=== PATIENT | male | born 1985 | race Hispanic/Latino ===

== ENCOUNTER 2018-10-08 18:52 | Inpatient (IN) | payer OTHER | END 2018-10-14 09:30 | disposition left against medical advice (07) | LOC: EDH 18:52 → 2CH 10-09 11:26 → 3DH 10-12 11:46 → EDHIP 18:53 | DX: E11.10 Type 2 diabetes mellitus with ketoacidosis without coma (principal); F17.200 Nicotine dependence, unspecified, uncomplicated ==

== ENCOUNTER 2020-08-10 06:30 | Inpatient (IN) | payer OTHER ==
[~2020-08-10] VITALS: Ht 170.2 cm; Wt 103.4 kg
[~2020-08-10 06:30] MED LIST: ESOM40CA PO
[2020-08-10 06:56] LABS: BASOPHILS % (AUTO) 0.2 % (0.0-5.0); EOSINOPHILS % (AUTO) 0.1 % (0.0-8.0); HEMATOCRIT 38.9 % (42-54); LYMPHOCYTES % (AUTO) 3.4 % (21.0-51.0); MEAN CORPUSCULAR HEMOGLOBIN 28.3 pg (27.0-33.0); MEAN CORPUSCULAR HGB CONC 34.7 g/dL (32.0-36.0); MEAN CORPUSCULAR VOLUME 81.6 fL (79-99); MONOCYTES % (AUTO) 2.8 % (3.0-13.0); NEUTROPHILS % (AUTO) 93.1 % (40.0-77.0); PLATELET COUNT (AUTO) 277 K/uL (130-400); RED BLOOD CELL COUNT(AUTO) 4.77 MIL/uL (4.50-6.20); WHITE BLOOD COUNT (AUTO) 16.3 K/uL (4.8-10.8)
[2020-08-10] MEDS ORDERED: METOCLOPRAMIDE 10 MG/2 ML VIAL ONE (07:05)
[2020-08-10 07:09] LABS: INR 1.13 (0.85-1.15)
[2020-08-10 07:10] LABS: PARTIAL THROMBOPLASTIN TIME 27.4 SEC (26.3-35.5)
[2020-08-10 07:12] LABS: ALBUMIN 2.7 g/dL (3.5-5.0); BILIRUBIN,TOTAL 0.3 mg/dL (0.2-1.0); CREATININE 2.1 mg/dL (0.5-1.5); POTASSIUM 4.1 mmol/L (3.5-5.1); TOTAL PROTEIN, SERUM 7.1 g/dL (6.0-8.3)
[2020-08-10] MEDS ORDERED: CEFTRIAXONE SODIUM 1 GM ONE (07:37)
[2020-08-10 07:58] LABS: CHOLESTEROL 308 mg/dL (<200); HDL CHOLESTEROL 76 mg/dL (29-71); LDL DIRECT 202 mg/dL (0-99); TRIGLYCERIDES 165 mg/dL (30-200)
[2020-08-10] MEDS: CEFTRIAXONE SODIUM 1 GM IV SCH (08:45)
[2020-08-10] MEDS ORDERED: SODIUM CHLORIDE 0.9% 1000ML 1,000 ML IV SCH (08:45)
[2020-08-10] MEDS ORDERED: ACETAMINOPHEN 325 MG TAB PO PRN ×2 (08:45)
[2020-08-10 08:56] LABS: HEMOGLOBIN A1C 7.4 % (4.0-6.0)
[2020-08-10] MEDS: ENOXAPARIN SODIUM 30 MG/0.3 ML SQ SCH (09:00)
[2020-08-10] MEDS: FAMOTIDINE/PF 20 MG/2 ML VIAL IV SCH ×2 (09:00→21:00)
[2020-08-10 09:25] LABS: APPEARANCE,URINE Clear (CLEAR); BILIRUBIN,URINE Negative (NEGATIVE); COLOR,URINE Yellow (YELLOW); GLUCOSE, URINE (UA) 500 mg/dL (NEGATIVE); KETONES,URINE 15 mg/dL (NEGATIVE); LEUKOCYTE ESTERASE ,URINE Negative (NEGATIVE); NITRATE,URINE Negative (NEGATIVE); OCCULT BLOOD,URINE Moderate (NEGATIVE); PH,URINE 6.5 (5.0-8.0); PROTEIN,URINE >=1000 mg/dL (NEGATIVE); UROBILINOGEN,URINE 0.2 mg/dL (0.2-1.0)
[2020-08-10 09:33] LABS: AMPHET/METH SCREEN,URINE NEGATIVE (NEGATIVE); BARBITURATE SCREEN, URINE NEGATIVE (NEGATIVE); BENZODIAZEPINES SCREEN,URINE NEGATIVE (NEGATIVE); CANNABINOID SCREEN,URINE POSITIVE (NEGATIVE); COCAINE SCREEN,URINE NEGATIVE (NEGATIVE); OPIATE SCREEN,URINE NEGATIVE (NEGATIVE); PHENCYCLIDINE SCREEN,URINE NEGATIVE (NEGATIVE)
[2020-08-10] MEDS ORDERED: METRONIDAZOLE 500MG/100ML BAG 100 ML ONE (09:39)
[2020-08-10] MEDS ORDERED: ENOXAPARIN SODIUM 30 MG/0.3 ML SQ ONE (09:39)
[2020-08-10] MEDS ORDERED: FAMOTIDINE/PF 20 MG/2 ML VIAL IV ONE ×2 (09:40→20:26)
[2020-08-10] MEDS ORDERED: SODIUM CHLORIDE 0.9% 1000ML 1,000 ML IV ONE ×3 (09:40→22:46)
[2020-08-10] MEDS ORDERED: MORPHINE SULFATE 2 MG/ML 1ML SYG ONE ×3 (09:40→22:27)
[2020-08-10 10:24] LABS: BACTERIA,URINE Few /HPF (None Seen); MUCUS,URINE Few LPF (None Seen); WBC,URINE None Seen /HPF (0-1)
[2020-08-10] MEDS: INSULIN HUMULIN R 100 UNIT/ML 3ML SQ SCH ×2 (12:00→18:00)
[2020-08-10] MEDS: METRONIDAZOLE 500MG/100ML BAG 100 ML IV SCH (16:45)
[2020-08-10] MEDS ORDERED: ONDANSETRON HCL 4 MG/2 ML VIAL ONE ×2 (17:37→22:27)
[2020-08-10] MEDS: LACTATED RINGERS 1000ML 1,000 ML IV SCH (19:00)
[2020-08-10 19:28] LABS: CREATININE 2.1 mg/dL (0.5-1.5)
[2020-08-10] MEDS: INSULIN GLARGINE 100 UNITS/ML 10 ML VIAL SQ SCH (21:00)
[2020-08-11] VITALS (7 sets, daily range): BP systolic 168–202; BP diastolic 100–126
[2020-08-11] MEDS ORDERED: PHARMACY COMMUNICATION MISC PRN (00:30)
[2020-08-11] MEDS ORDERED: CHLORDIAZEPOXIDE HCL 25 MG CAP PO PRN ×2 (00:30)
[2020-08-11] MEDS ORDERED: LORAZEPAM 2 MG/ML 1 ML VIAL IVP PRN ×2 (00:30)
[2020-08-11] MEDS ORDERED: LORAZEPAM 2 MG/ML 1 ML VIAL ONE (00:32)
[2020-08-11] MEDS: METRONIDAZOLE 500MG/100ML BAG 100 ML IV SCH ×3 (00:45→18:05)
[2020-08-11] MEDS: LACTATED RINGERS 1000ML 1,000 ML IV SCH (04:11)
[2020-08-11] MEDS: INSULIN HUMULIN R 100 UNIT/ML 3ML SQ SCH ×5 (05:33→21:00)
[2020-08-11 06:31] LABS: BASOPHILS % (AUTO) 0.2 % (0.0-5.0); EOSINOPHILS % (AUTO) 0.1 % (0.0-8.0); LYMPHOCYTES % (AUTO) 7.9 % (21.0-51.0); MEAN CORPUSCULAR HEMOGLOBIN 28.2 pg (27.0-33.0); MEAN CORPUSCULAR HGB CONC 33.7 g/dL (32.0-36.0); MEAN CORPUSCULAR VOLUME 83.5 fL (79-99); MONOCYTES % (AUTO) 6.7 % (3.0-13.0); NEUTROPHILS % (AUTO) 84.5 % (40.0-77.0); PLATELET COUNT (AUTO) 234 K/uL (130-400); RED BLOOD CELL COUNT(AUTO) 4.19 MIL/uL (4.50-6.20); RED CELL DISTRIBUTION WIDTH 13.2 % (11.0-15.5); WHITE BLOOD COUNT (AUTO) 12.2 K/uL (4.8-10.8)
[2020-08-11 06:51] LABS: ALANINE AMINOTRANSFERASE 15 U/L (12-78); ALCOHOL, BLOOD < 3 mg/dL (0-10); ASPARTATE AMINOTRANSFERASE 20 U/L (10-37); BILIRUBIN,TOTAL 0.1 mg/dL (0.2-1.0); CARBON DIOXIDE 26 mmol/L (21-32); CHLORIDE 111 mmol/L (101-111); GLOMERULAR FILTR. RATE CALC 41 mL/min (>60); GLUCOSE,RANDOM 161 mg/dL (70-105); PHOSPHORUS 3.9 mg/dL (2.5-4.9); POTASSIUM 3.9 mmol/L (3.5-5.1); SODIUM SERUM 146 mmol/L (136-145); TOTAL PROTEIN, SERUM 5.6 g/dL (6.0-8.3); UREA NITROGEN, BLOOD 27 mg/dL (7-18)
[2020-08-11] MEDS ORDERED: METOPROLOL TARTRATE 50 MG TAB PO SCH (09:15)
[2020-08-11] MEDS: CEFTRIAXONE SODIUM 1 GM IV SCH (10:06)
[2020-08-11] MEDS: MULTIVITAMIN TABLET PO SCH (10:08)
[2020-08-11] MEDS: THIAMINE HCL 100 MG/ML 2ML VIAL IM SCH (10:08)
[2020-08-11] MEDS: FOLIC ACID 1 MG TABLET PO SCH (10:13)
[2020-08-11] MEDS: ENOXAPARIN SODIUM 30 MG/0.3 ML SQ SCH (10:19)
[2020-08-11] MEDS: FAMOTIDINE/PF 20 MG/2 ML VIAL IV SCH ×2 (10:20→21:04)
[2020-08-11] MEDS: METOPROLOL TARTRATE 50 MG TAB PO SCH ×2 (10:22→21:04)
[2020-08-11] MEDS ORDERED: HYDRALAZINE HCL 20 MG/ML VIAL IV SCH (12:45)
[2020-08-11] MEDS ORDERED: AMLODIPINE BESYLATE 5 MG TAB PO SCH (18:22)
[2020-08-11] MEDS: MORPHINE SULFATE 2 MG/ML 1ML SYG IV PRN ×2 (18:28→23:05)
[2020-08-11] MEDS: ONDANSETRON HCL 4 MG/2 ML VIAL IV PRN (18:52)
[2020-08-11] MEDS ORDERED: AMLO-258 PO (21:02)
[2020-08-11] MEDS ORDERED: GLIP10TA9 PO (21:02)
[2020-08-11] MEDS: INSULIN GLARGINE 100 UNITS/ML 10 ML VIAL SQ SCH (21:09)
[2020-08-11] MEDS ORDERED: LABETALOL HCL 5 MG/ML 20ML VIAL IV ONE (23:02)
[2020-08-12] VITALS (8 sets, daily range): BP systolic 132–198; BP diastolic 82–114
[2020-08-12] MEDS: METRONIDAZOLE 500MG/100ML BAG 100 ML IV SCH ×4 (00:19→23:40)
[2020-08-12 03:52] LABS: HEMATOCRIT 33.7 % (42-54); MEAN CORPUSCULAR HEMOGLOBIN 28.2 pg (27.0-33.0); MEAN CORPUSCULAR HGB CONC 34.1 g/dL (32.0-36.0); MEAN CORPUSCULAR VOLUME 82.6 fL (79-99); PLATELET COUNT (AUTO) 228 K/uL (130-400); RED BLOOD CELL COUNT(AUTO) 4.08 MIL/uL (4.50-6.20); RED CELL DISTRIBUTION WIDTH 12.9 % (11.0-15.5); WHITE BLOOD COUNT (AUTO) 11.8 K/uL (4.8-10.8)
[2020-08-12 04:19] LABS: CREATININE 2.1 mg/dL (0.5-1.5); PHOSPHORUS 4.5 mg/dL (2.5-4.9); POTASSIUM 3.3 mmol/L (3.5-5.1)
[2020-08-12] MEDS: LABETALOL 20 MG/4 ML DISP.SYRIN IV PRN ×2 (04:25→17:14)
[2020-08-12 04:38] LABS: LYMPHOCYTES % (MANUAL) 3 % (22-44); MONOCYTES % (MANUAL) 4 % (2-9); REACTIVE LYMPHOCYTES 1 % (0-0); SEGMENTED NEUTROPHILS % 92 % (40-70)
[2020-08-12 04:39] LABS: MAN.DIFF COMMENT-IMPRESSION MANUAL DIFFERENTIAL
[2020-08-12 04:41] LABS: PROTEIN,URINE RANDOM 1080.7 mg/dL (0-11.9)
[2020-08-12] MEDS ORDERED: POTASSIUM CHLORIDE 20 MEQ ERTAB PO ONE (06:59)
[2020-08-12] MEDS ORDERED: POTASSIUM CHLORIDE 20 MEQ ERTAB PO PRN (07:15)
[2020-08-12] MEDS ORDERED: POTASSIUM CHLORIDE 10% ELIXIR 20 MEQ/15 ML UDCUP PO PRN (07:15)
[2020-08-12] MEDS ORDERED: LIDOCAINE HCL-MPF 1% 2ML VIAL IV PRN (07:15)
[2020-08-12] MEDS ORDERED: POTASSIUM CHLORIDE 20MEQ/100ML 100 ML IV PRN (07:15)
[2020-08-12] MEDS: CEFTRIAXONE SODIUM 1 GM IVP SCH ×3 (07:27→18:44)
[2020-08-12] MEDS: INSULIN HUMULIN R 100 UNIT/ML 3ML SQ SCH ×4 (07:30→21:43)
[2020-08-12] MEDS: FOLIC ACID 1 MG TABLET PO SCH (08:51)
[2020-08-12] MEDS: ENOXAPARIN SODIUM 30 MG/0.3 ML SQ SCH (08:51)
[2020-08-12] MEDS: MULTIVITAMIN TABLET PO SCH (08:51)
[2020-08-12] MEDS: THIAMINE HCL 100 MG/ML 2ML VIAL IM SCH (08:52)
[2020-08-12] MEDS ORDERED: AMLODIPINE BESYLATE 5 MG TAB PO SCH (09:00)
[2020-08-12] MEDS ORDERED: METOPROLOL TARTRATE 50 MG TAB PO SCH (09:00)
[2020-08-12] MEDS: FAMOTIDINE/PF 20 MG/2 ML VIAL IV SCH ×2 (09:25→21:27)
[2020-08-12] MEDS: AMLODIPINE BESYLATE 5 MG TAB PO SCH (09:26)
[2020-08-12] MEDS: HYDROMORPHONE HCL 2 MG TAB PO PRN ×2 (10:00→21:39)
[2020-08-12] MEDS ORDERED: INSLAN SQ ×2 (12:13)
[2020-08-12] MEDS: HYDRALAZINE HCL 25 MG TABLET PO SCH ×3 (14:24→23:41)
[2020-08-12 20:28] LABS: MYOGLOBIN 377 ng/mL (10-92); TROPONIN I < 0.04 ng/mL (0.00-0.06)
[2020-08-12 20:38] LABS: CREATINE KINASE, TOTAL 602 U/L (21-232)
[2020-08-12] MEDS ORDERED: LABETALOL HCL 5 MG/ML 20ML VIAL IV ONE (21:12)
[2020-08-12] MEDS: INSULIN GLARGINE 100 UNITS/ML 10 ML VIAL SQ SCH (21:36)
[2020-08-12] MEDS: METOPROLOL TARTRATE 50 MG TAB PO SCH (21:38)
[2020-08-12] MEDS ORDERED: HYDROMORPHONE HCL 2 MG/ML VIAL IVP PRN (23:15)
[2020-08-12] MEDS: SODIUM CHLORIDE 0.9% 1000ML 1,000 ML IV SCH (23:41)
[2020-08-12] MEDS: HYDROMORPHONE HCL 2 MG/ML VIAL IVP PRN (23:52)
[2020-08-13] MEDS: ONDANSETRON HCL 4 MG/2 ML VIAL IV PRN ×2 (01:59→23:34)
[2020-08-13] MEDS: LABETALOL 20 MG/4 ML DISP.SYRIN IV PRN ×4 (01:59→23:34)
[2020-08-13 02:45] LABS: MYOGLOBIN 340 ng/mL (10-92); TROPONIN I < 0.04 ng/mL (0.00-0.06)
[2020-08-13 02:46] LABS: CREATINE KINASE, TOTAL 456 U/L (21-232)
[2020-08-13 04:00] VITALS: BP 163/95
[2020-08-13] MEDS ORDERED: PROMETHAZINE HCL 25 MG/ML 1ML AMPULE IM SCH (07:00)
[2020-08-13] MEDS: CEFTRIAXONE SODIUM 1 GM IVP SCH ×2 (07:07→20:30)
[2020-08-13] MEDS: INSULIN HUMULIN R 100 UNIT/ML 3ML SQ SCH ×4 (07:08→20:30)
[2020-08-13] MEDS: HYDRALAZINE HCL 25 MG TABLET PO SCH ×4 (07:17→23:30)
[2020-08-13 08:10] VITALS: BP 183/113
[2020-08-13 08:20] LABS: MEAN CORPUSCULAR HEMOGLOBIN 28.5 pg (27.0-33.0); MEAN CORPUSCULAR HGB CONC 34.6 g/dL (32.0-36.0); MEAN CORPUSCULAR VOLUME 82.4 fL (79-99); RED BLOOD CELL COUNT(AUTO) 4.25 MIL/uL (4.50-6.20); RED CELL DISTRIBUTION WIDTH 12.7 % (11.0-15.5); WHITE BLOOD COUNT (AUTO) 11.1 K/uL (4.8-10.8)
[2020-08-13] MEDS: METRONIDAZOLE 500MG/100ML BAG 100 ML IV SCH ×3 (08:47→23:29)
[2020-08-13] MEDS: FOLIC ACID 1 MG TABLET PO SCH (08:47)
[2020-08-13] MEDS: MULTIVITAMIN TABLET PO SCH (08:47)
[2020-08-13] MEDS: SODIUM CHLORIDE 0.9% 1000ML 1,000 ML IV SCH ×3 (08:47→23:15)
[2020-08-13] MEDS: THIAMINE HCL 100 MG/ML 2ML VIAL IM SCH (08:47)
[2020-08-13] MEDS: METOPROLOL TARTRATE 50 MG TAB PO SCH ×2 (08:48→20:29)
[2020-08-13] MEDS: AMLODIPINE BESYLATE 5 MG TAB PO SCH (08:48)
[2020-08-13] MEDS: ENOXAPARIN SODIUM 30 MG/0.3 ML SQ SCH (08:49)
[2020-08-13 08:52] LABS: MYOGLOBIN 561 ng/mL (10-92); TROPONIN I < 0.04 ng/mL (0.00-0.06)
[2020-08-13] MEDS: FAMOTIDINE/PF 20 MG/2 ML VIAL IV SCH ×2 (08:52→20:29)
[2020-08-13 09:29] LABS: CREATINE KINASE, TOTAL 468 U/L (21-232)
[2020-08-13 09:36] LABS: CREATININE 1.8 mg/dL (0.5-1.5); POTASSIUM 3.5 mmol/L (3.5-5.1)
[2020-08-13 09:41] LABS: ALBUMIN 1.9 g/dL (3.5-5.0); BILIRUBIN,TOTAL 0.1 mg/dL (0.2-1.0); TOTAL PROTEIN, SERUM 5.4 g/dL (6.0-8.3)
[2020-08-13 11:43] VITALS: BP 157/94
[2020-08-13 16:17] VITALS: BP 167/106
[2020-08-13 19:53] VITALS: BP 172/109
[2020-08-13] MEDS: INSULIN GLARGINE 100 UNITS/ML 10 ML VIAL SQ SCH (20:30)
[2020-08-13] MEDS ORDERED: HYDROMORPHONE 1 MG/1 ML AMP ONE (20:48)
[2020-08-13] MEDS: HYDROMORPHONE HCL 2 MG/ML VIAL IVP PRN (20:51)
[2020-08-13 23:17] VITALS: BP 167/102
[2020-08-14 04:00] VITALS: BP 129/83
[2020-08-14] MEDS: CEFTRIAXONE SODIUM 1 GM IVP SCH (05:21)
[2020-08-14] MEDS: HYDRALAZINE HCL 25 MG TABLET PO SCH (05:21)
[2020-08-14] MEDS: INSULIN HUMULIN R 100 UNIT/ML 3ML SQ SCH (05:24)
[2020-08-14] MEDS: ONDANSETRON HCL 4 MG/2 ML VIAL IV PRN (05:44)
[2020-08-14] MEDS: SODIUM CHLORIDE 0.9% 1000ML 1,000 ML IV SCH (05:45)
[2020-08-14 08:09] VITALS: BP 184/101
[2020-08-14] MEDS ORDERED: LORAZEPAM 1 MG TABLET PO PRN (10:00)
[2020-08-14] MEDS ORDERED: LORAZEPAM 1 MG TABLET PO ONE (10:00)
[2020-08-14 10:25] LABS: CRP QUANTITATIVE 4.8 mg/L (0.00-9.0)
[2020-08-14] MEDS ORDERED: METOCLOPRAMIDE 10 MG/2 ML VIAL IVP SCH (21:00)
== END 2020-08-14 10:30 | disposition left against medical advice (07) | DRG 393 ==
LOC: EDH 06:30 → EDHIP 06:31 → 3CH 08-11 00:36
PROVIDERS: ADMIT Hospitalist; ATTEND Hospitalist
DX: K35.80 Unspecified acute appendicitis (principal); K85.90 Acute pancreatitis without necrosis or infection, unspecified; K86.1 Other chronic pancreatitis; N17.9 Acute kidney failure, unspecified; E86.0 Dehydration; Z20.822 Contact with and (suspected) exposure to COVID-19; F12.90 Cannabis use, unspecified, uncomplicated; I10 Essential (primary) hypertension; E11.21 Type 2 diabetes mellitus with diabetic nephropathy; R53.81 Other malaise; Z79.84 Long term (current) use of oral hypoglycemic drugs; Z83.3 Family history of diabetes mellitus; Z82.49 Family history of ischemic heart disease and other diseases of the circulatory system
CPT/HCPCS: 36415; 71045; 74176; 76770; 80048; 80053; 80061; 80305; 81001; 82550; 82570; 82948; 83036; 83690; 83735; 83874; 84100; 84156; 84484; 85025; 85027; 85610; 85651; 85730; 86140; 87426; 93005; G0378; J0360; J0696; J1170; J1650; J1815; J2060; J2405; J2765; J3411; J3490; J7030; J7120; U0003

== ENCOUNTER 2020-08-15 10:28 | Emergency (ER) | payer OTHER ==
[~2020-08-15 10:28] MED LIST changes: +AMLO-258 PO; +GLIP10TA9 PO; +INSLAN SQ
[2020-08-15] MEDS ORDERED: ONDANSETRON HCL 4 MG/2 ML VIAL ONE (11:21)
[2020-08-15] MEDS ORDERED: SODIUM CHLORIDE 0.9% 1000ML 1,000 ML IV ONE ×2 (11:21→11:23)
[2020-08-15] MEDS ORDERED: HYDROMORPHONE 1 MG/1 ML AMP ONE ×2 (11:22→17:02)
[2020-08-15 11:24] LABS: BASOPHILS % (AUTO) 0.6 % (0.0-5.0); EOSINOPHILS % (AUTO) 0.6 % (0.0-8.0); HEMATOCRIT 38.7 % (42-54); LYMPHOCYTES % (AUTO) 10.8 % (21.0-51.0); MEAN CORPUSCULAR HEMOGLOBIN 28.3 pg (27.0-33.0); MEAN CORPUSCULAR HGB CONC 35.1 g/dL (32.0-36.0); MEAN CORPUSCULAR VOLUME 80.6 fL (79-99); MONOCYTES % (AUTO) 6.3 % (3.0-13.0); NEUTROPHILS % (AUTO) 81.2 % (40.0-77.0); PLATELET COUNT (AUTO) 236 K/uL (130-400); RED CELL DISTRIBUTION WIDTH 12.5 % (11.0-15.5); WHITE BLOOD COUNT (AUTO) 10.8 K/uL (4.8-10.8)
[2020-08-15 11:32] LABS: CREATININE 1.7 mg/dL (0.5-1.5); POTASSIUM 3.6 mmol/L (3.5-5.1)
[2020-08-15 11:36] LABS: ALBUMIN 2.1 g/dL (3.5-5.0); BILIRUBIN,TOTAL 0.3 mg/dL (0.2-1.0); TOTAL PROTEIN, SERUM 5.7 g/dL (6.0-8.3)
[2020-08-15] MEDS ORDERED: METOCLOPRAMIDE 10 MG/2 ML VIAL ONE (12:40)
[2020-08-15] MEDS ORDERED: LABETALOL 20 MG/4 ML DISP.SYRIN IV ONE (12:41)
[2020-08-15 15:18] LABS: APPEARANCE,URINE Clear (CLEAR); BILIRUBIN,URINE Negative (NEGATIVE); COLOR,URINE Yellow (YELLOW); GLUCOSE, URINE (UA) TRACE mg/dL (NEGATIVE); KETONES,URINE 15 mg/dL (NEGATIVE); LEUKOCYTE ESTERASE ,URINE Negative (NEGATIVE); NITRATE,URINE Negative (NEGATIVE); OCCULT BLOOD,URINE Small (NEGATIVE); PH,URINE 5.5 (5.0-8.0); PROTEIN,URINE >=1000 mg/dL (NEGATIVE); UROBILINOGEN,URINE 0.2 mg/dL (0.2-1.0)
[2020-08-15 15:39] LABS: AMPHET/METH SCREEN,URINE NEGATIVE (NEGATIVE); BARBITURATE SCREEN, URINE NEGATIVE (NEGATIVE); BENZODIAZEPINES SCREEN,URINE NEGATIVE (NEGATIVE); CANNABINOID SCREEN,URINE POSITIVE (NEGATIVE); COCAINE SCREEN,URINE NEGATIVE (NEGATIVE); OPIATE SCREEN,URINE NEGATIVE (NEGATIVE); PHENCYCLIDINE SCREEN,URINE NEGATIVE (NEGATIVE)
[2020-08-15 16:06] LABS: BACTERIA,URINE Few /HPF (None Seen); MUCUS,URINE Few LPF (None Seen); SQUAMOUS EPITHELIAL CELL,UR Moderate /HPF (0-2)
== END 2020-08-15 17:35 | disposition home or self-care (01) ==
LOC: EDH 10:28
DX: R11.10 Vomiting, unspecified (principal); K80.80 Other cholelithiasis without obstruction; E11.9 Type 2 diabetes mellitus without complications
CPT/HCPCS: 36415; 74176; 76705; 80053; 80305; 81001; 83690; 85025; 96361; 96374; 96375; 96376; 99285; J1170 ×2; J2405; J2765; J7030 ×2

== ENCOUNTER 2020-08-16 14:51 | Emergency (ER) | payer SELFPAY ==
[~2020-08-16 14:51] MED LIST changes: -ESOM40CA PO
[2020-08-16] MEDS ORDERED: DiphenhydrAMINE HCL 50 MG/ML VIAL ONE (15:31)
[2020-08-16] MEDS ORDERED: AMLODIPINE 5 MG TAB ONE (15:31)
[2020-08-16] MEDS ORDERED: 0.9%NACL 1000ML 2,000 ML IV ONE (15:31)
[2020-08-16] MEDS ORDERED: ONDANSETRON 4MG INJ ONE (15:31)
[2020-08-16 15:38] LABS: BASOPHILS % (AUTO) 0.3 % (0.0-5.0); EOSINOPHILS % (AUTO) 1.4 % (0.0-8.0); HEMATOCRIT 39.6 % (42-54); LYMPHOCYTES % (AUTO) 10.4 % (21.0-51.0); MEAN CORPUSCULAR HEMOGLOBIN 27.7 pg (27.0-33.0); MEAN CORPUSCULAR HGB CONC 34.6 g/dL (32.0-36.0); MONOCYTES % (AUTO) 6.6 % (3.0-13.0); NEUTROPHILS % (AUTO) 80.8 % (40.0-77.0); PLATELET COUNT (AUTO) 257 K/uL (130-400); RED BLOOD CELL COUNT(AUTO) 4.95 MIL/uL (4.50-6.20); RED CELL DISTRIBUTION WIDTH 12.6 % (11.0-15.5); WHITE BLOOD COUNT (AUTO) 11.8 K/uL (4.8-10.8)
[2020-08-16 15:59] LABS: CREATININE 0.3 mg/dL (0.5-1.5); POTASSIUM 3.3 mmol/L (3.5-5.1)
[2020-08-16 16:03] LABS: ALBUMIN 2.2 g/dL (3.5-5.0); BILIRUBIN,TOTAL 0.4 mg/dL (0.2-1.0); TOTAL PROTEIN, SERUM 5.8 g/dL (6.0-8.3)
[2020-08-16] MEDS ORDERED: LIDOCAINE HCL 2% VISCOUS 15 ML UDCUP ONE (16:39)
[2020-08-16] MEDS ORDERED: MAG/ALUM/SIMETH 30 ML UDCUP ONE (16:39)
[2020-08-16] MEDS ORDERED: KCL 20 MEQ ERTAB PO ONE (16:40)
[2020-08-16] MEDS ORDERED: LABETALOL 20MG SYG IV ONE (17:09)
[2020-08-16 17:21] LABS: APPEARANCE,URINE Clear (CLEAR); BILIRUBIN,URINE Negative (NEGATIVE); COLOR,URINE Yellow (YELLOW); GLUCOSE, URINE (UA) TRACE mg/dL (NEGATIVE); KETONES,URINE 15 mg/dL (NEGATIVE); LEUKOCYTE ESTERASE ,URINE Negative (NEGATIVE); NITRATE,URINE Negative (NEGATIVE); OCCULT BLOOD,URINE Moderate (NEGATIVE); PROTEIN,URINE >=1000 mg/dL (NEGATIVE); UROBILINOGEN,URINE 0.2 mg/dL (0.2-1.0)
[2020-08-16 17:38] LABS: BACTERIA,URINE Rare /HPF (None Seen)
[2020-08-16 17:40] LABS: SQUAMOUS EPITHELIAL CELL,UR Rare /HPF (0-2)
== END 2020-08-16 18:20 | disposition home or self-care (01) ==
LOC: EDH 14:51
DX: R07.0 Pain in throat (principal); E11.65 Type 2 diabetes mellitus with hyperglycemia; R11.0 Nausea; F19.90 Other psychoactive substance use, unspecified, uncomplicated
CPT/HCPCS: 36415; 70360; 80053; 81001; 82150; 82550; 83690; 84484; 85025; 87880; 93005; 96361; 96374; 96375; 99285; J1200; J2405; J7030

== ENCOUNTER 2020-09-05 03:45 | Inpatient (IN) | payer OTHER ==
[~2020-09-05] VITALS: Ht 167.6 cm; Wt 80.8 kg
[2020-09-05] MEDS ORDERED: SODIUM CHLORIDE 0.9% 1000ML 1,000 ML IV ONE ×2 (04:05→04:07)
[2020-09-05] MEDS ORDERED: METOCLOPRAMIDE 10 MG/2 ML VIAL ONE (04:06)
[2020-09-05] MEDS ORDERED: PANTOPRAZOLE 40 MG/VIAL ONE (04:06)
[2020-09-05] MEDS ORDERED: ONDANSETRON HCL 4 MG/2 ML VIAL ONE ×2 (04:06→11:32)
[2020-09-05] MEDS ORDERED: FAMOTIDINE/PF 20 MG/2 ML VIAL IV ONE ×2 (04:07→08:03)
[2020-09-05 04:10] LABS: BASOPHILS % (AUTO) 0.2 % (0.0-5.0); EOSINOPHILS % (AUTO) 0.2 % (0.0-8.0); HEMATOCRIT 39.2 % (42-54); LYMPHOCYTES % (AUTO) 9.4 % (21.0-51.0); MEAN CORPUSCULAR HGB CONC 34.2 g/dL (32.0-36.0); NEUTROPHILS % (AUTO) 83.8 % (40.0-77.0); PLATELET COUNT (AUTO) 278 K/uL (130-400); RED BLOOD CELL COUNT(AUTO) 4.78 MIL/uL (4.50-6.20); RED CELL DISTRIBUTION WIDTH 13.1 % (11.0-15.5); WHITE BLOOD COUNT (AUTO) 8.4 K/uL (4.8-10.8)
[2020-09-05 04:23] LABS: CREATININE 2.1 mg/dL (0.5-1.5); POTASSIUM 4.1 mmol/L (3.5-5.1)
[2020-09-05 04:28] LABS: ALBUMIN 2.5 g/dL (3.5-5.0); BILIRUBIN,TOTAL 0.6 mg/dL (0.2-1.0); TOTAL PROTEIN, SERUM 6.6 g/dL (6.0-8.3)
[2020-09-05 04:32] LABS: INR 1.03 (0.85-1.15); PROTHROMBIN TIME 11.2 SEC (9.6-11.6)
[2020-09-05 04:33] LABS: PARTIAL THROMBOPLASTIN TIME 24.8 SEC (26.3-35.5)
[2020-09-05] MEDS ORDERED: MORPHINE SULFATE 4 MG/1ML SYG ONE (04:51)
[2020-09-05] MEDS ORDERED: MAG HYDROX/AL HYDROX/SIMETH ES 30 ML SUSP UDCUP PO PRN (05:45)
[2020-09-05] MEDS ORDERED: ACETAMINOPHEN 325 MG TAB PO PRN ×2 (05:45)
[2020-09-05] MEDS ORDERED: DiphenhydrAMINE HCL 50 MG/ML VIAL IV PRN (05:45)
[2020-09-05] MEDS ORDERED: DIPHENHYDRAMINE HCL 25 MG CAPSULE PO PRN (05:45)
[2020-09-05] MEDS ORDERED: NITROGLYCERIN 0.4 MG SL TAB SL PRN (05:45)
[2020-09-05] MEDS ORDERED: GUAIFENESIN-DM 200/20 MG 10 ML PO PRN (05:45)
[2020-09-05] MEDS ORDERED: LACTULOSE 20 GM/30 ML UDCUP PO PRN (05:45)
[2020-09-05] MEDS ORDERED: POTASSIUM CHLORIDE 20MEQ/100ML 100 ML IV PRN ×2 (06:00)
[2020-09-05] MEDS ORDERED: GLUCAGON 1MG KIT 1 MG ML IM PRN (06:00)
[2020-09-05] MEDS ORDERED: POTASSIUM CHLORIDE 10% ELIXIR 20 MEQ/15 ML UDCUP PO PRN (06:00)
[2020-09-05] MEDS ORDERED: POTASSIUM CHLORIDE 20 MEQ ERTAB PO PRN (06:00)
[2020-09-05] MEDS ORDERED: DEXTROSE 50%-WATER 50 ML DISP.SYRIN IV PRN (06:00)
[2020-09-05] MEDS ORDERED: HEPARIN SODIUM 5000UNIT/ML 1ML VIAL ONE (08:03)
[2020-09-05] MEDS ORDERED: INSULIN HUMULIN R 100 UNIT/ML 3ML ONE (08:06)
[2020-09-05 08:32] LABS: APPEARANCE,URINE Clear (CLEAR); BILIRUBIN,URINE Negative (NEGATIVE); COLOR,URINE Yellow (YELLOW); GLUCOSE, URINE (UA) 500 mg/dL (NEGATIVE); KETONES,URINE Trace mg/dL (NEGATIVE); LEUKOCYTE ESTERASE ,URINE Negative (NEGATIVE); NITRATE,URINE Negative (NEGATIVE); OCCULT BLOOD,URINE Moderate (NEGATIVE); PH,URINE 6.5 (5.0-8.0); PROTEIN,URINE >=1000 mg/dL (NEGATIVE); UROBILINOGEN,URINE 0.2 mg/dL (0.2-1.0)
[2020-09-05 08:38] LABS: BACTERIA,URINE Moderate /HPF (None Seen); RBC,URINE 0-1 /HPF (0-1)
[2020-09-05 08:39] LABS: HYALINE CASTS, URINE 0-1 /LPF (0-1 /LPF); SQUAMOUS EPITHELIAL CELL,UR None Seen /HPF (0-2)
[2020-09-05 08:40] LABS: AMPHET/METH SCREEN,URINE NEGATIVE (NEGATIVE); BARBITURATE SCREEN, URINE NEGATIVE (NEGATIVE); BENZODIAZEPINES SCREEN,URINE NEGATIVE (NEGATIVE); CANNABINOID SCREEN,URINE POSITIVE (NEGATIVE); COCAINE SCREEN,URINE NEGATIVE (NEGATIVE); OPIATE SCREEN,URINE NEGATIVE (NEGATIVE); PHENCYCLIDINE SCREEN,URINE NEGATIVE (NEGATIVE)
[2020-09-05] MEDS ORDERED: AMLODIPINE BESYLATE 5 MG TAB ONE (09:10)
[2020-09-05] MEDS ORDERED: HYDRALAZINE HCL 25 MG TABLET ONE ×2 (09:14→20:51)
[2020-09-05] MEDS ORDERED: MORPHINE SULFATE 2 MG/ML 1ML SYG ONE ×3 (09:14→18:26)
[2020-09-05] MEDS ORDERED: AMLODIPINE BESYLATE 5 MG TAB PO SCH (09:15)
[2020-09-05] MEDS: INSULIN HUMULIN R 100 UNIT/ML 3ML SQ SCH ×3 (11:30→21:00)
[2020-09-05] MEDS: LACTATED RINGERS 1000ML 1,000 ML IV SCH (15:45)
[2020-09-05] MEDS ORDERED: LORAZEPAM 2 MG/ML 1 ML VIAL ONE (15:59)
[2020-09-05] MEDS ORDERED: LABETALOL 20 MG/4 ML DISP.SYRIN IV ONE (20:53)
[2020-09-05] MEDS: HYDRALAZINE HCL 25 MG TABLET PO SCH (21:00)
[2020-09-05] MEDS: FAMOTIDINE/PF 20 MG/2 ML VIAL IV SCH (22:14)
[2020-09-05] MEDS: HEPARIN SODIUM 5000UNIT/ML 1ML VIAL SQ SCH (22:15)
[2020-09-05 22:17] VITALS: BP 147/88
[2020-09-05 23:30] VITALS: BP 138/78
[2020-09-06] VITALS (8 sets, daily range): BP systolic 148–200; BP diastolic 97–119
[2020-09-06] MEDS: MORPHINE SULFATE 2 MG/ML 1ML SYG IVP PRN ×2 (01:02→09:48)
[2020-09-06] MEDS: LABETALOL 20 MG/4 ML DISP.SYRIN IV PRN ×2 (04:40→11:42)
[2020-09-06] MEDS ORDERED: SODIUM CHLORIDE 0.9% 1000ML 1,000 ML IV ONE (05:18)
[2020-09-06 05:53] LABS: BASOPHILS % (AUTO) 0.5 % (0.0-5.0); EOSINOPHILS % (AUTO) 0.1 % (0.0-8.0); HEMATOCRIT 34.1 % (42-54); LYMPHOCYTES % (AUTO) 11.6 % (21.0-51.0); MEAN CORPUSCULAR HEMOGLOBIN 28.2 pg (27.0-33.0); MEAN CORPUSCULAR HGB CONC 33.7 g/dL (32.0-36.0); MEAN CORPUSCULAR VOLUME 83.6 fL (79-99); MONOCYTES % (AUTO) 5.7 % (3.0-13.0); NEUTROPHILS % (AUTO) 81.7 % (40.0-77.0); PLATELET COUNT (AUTO) 243 K/uL (130-400); RED BLOOD CELL COUNT(AUTO) 4.08 MIL/uL (4.50-6.20); RED CELL DISTRIBUTION WIDTH 13.2 % (11.0-15.5); WHITE BLOOD COUNT (AUTO) 8.3 K/uL (4.8-10.8)
[2020-09-06] MEDS: INSULIN HUMULIN R 100 UNIT/ML 3ML SQ SCH ×5 (06:19→17:11)
[2020-09-06 06:25] LABS: CREATINE KINASE, TOTAL 140 U/L (21-232); MYOGLOBIN 183 ng/mL (10-92); TROPONIN I < 0.04 ng/mL (0.00-0.06)
[2020-09-06] MEDS: LACTATED RINGERS 1000ML 1,000 ML IV SCH (06:37)
[2020-09-06 06:38] LABS: ALANINE AMINOTRANSFERASE 17 U/L (12-78); ALBUMIN 1.9 g/dL (3.5-5.0); ASPARTATE AMINOTRANSFERASE 16 U/L (10-37); BILIRUBIN,DIRECT < 0.1 mg/dL (0.0-0.3); BILIRUBIN,TOTAL 0.2 mg/dL (0.2-1.0); CARBON DIOXIDE 25 mmol/L (21-32); CHLORIDE 110 mmol/L (101-111); CREATININE 1.8 mg/dL (0.5-1.5); GLOMERULAR FILTR. RATE CALC 46 mL/min (>60); GLUCOSE,RANDOM 185 mg/dL (70-105); LIPASE 131 U/L (114-286); POTASSIUM 3.9 mmol/L (3.5-5.1); SODIUM SERUM 143 mmol/L (136-145); TOTAL PROTEIN, SERUM 5.1 g/dL (6.0-8.3); UREA NITROGEN, BLOOD 22 mg/dL (7-18)
[2020-09-06] MEDS ORDERED: AMLODIPINE BESYLATE 5 MG TAB PO SCH (09:00)
[2020-09-06] MEDS: ONDANSETRON HCL 4 MG/2 ML VIAL IV PRN (09:46)
[2020-09-06] MEDS: HYDRALAZINE HCL 25 MG TABLET PO SCH ×4 (09:47→21:21)
[2020-09-06] MEDS: FAMOTIDINE/PF 20 MG/2 ML VIAL IV SCH ×2 (09:47→21:20)
[2020-09-06] MEDS: HEPARIN SODIUM 5000UNIT/ML 1ML VIAL SQ SCH ×2 (09:55→21:20)
[2020-09-06] MEDS ORDERED: LABETALOL HCL 5 MG/ML 20ML VIAL IV ONE (11:39)
[2020-09-06] MEDS ORDERED: HYDRALAZINE HCL 25 MG TABLET ONE (12:14)
[2020-09-06] MEDS ORDERED: PROMETHAZINE HCL 25 MG/ML 1ML AMPULE IM PRN (12:15)
[2020-09-06] MEDS: AMLODIPINE BESYLATE 5 MG TAB PO SCH (21:21)
[2020-09-07] MEDS: MORPHINE SULFATE 2 MG/ML 1ML SYG IVP PRN ×2 (00:45→22:57)
[2020-09-07] MEDS: ONDANSETRON HCL 4 MG/2 ML VIAL IV PRN (00:45)
[2020-09-07 03:22] VITALS: BP 162/105
[2020-09-07] MEDS: INSULIN HUMULIN R 100 UNIT/ML 3ML SQ SCH ×4 (06:13→20:23)
[2020-09-07 06:56] LABS: BASOPHILS % (AUTO) 0.5 % (0.0-5.0); EOSINOPHILS % (AUTO) 0.5 % (0.0-8.0); HEMATOCRIT 34.2 % (42-54); LYMPHOCYTES % (AUTO) 13.3 % (21.0-51.0); MEAN CORPUSCULAR HEMOGLOBIN 28.1 pg (27.0-33.0); MEAN CORPUSCULAR HGB CONC 34.2 g/dL (32.0-36.0); MEAN CORPUSCULAR VOLUME 82.2 fL (79-99); MONOCYTES % (AUTO) 5.3 % (3.0-13.0); NEUTROPHILS % (AUTO) 79.8 % (40.0-77.0); PLATELET COUNT (AUTO) 235 K/uL (130-400); RED BLOOD CELL COUNT(AUTO) 4.16 MIL/uL (4.50-6.20); RED CELL DISTRIBUTION WIDTH 12.9 % (11.0-15.5); WHITE BLOOD COUNT (AUTO) 8.1 K/uL (4.8-10.8)
[2020-09-07 07:02] LABS: CREATININE 1.7 mg/dL (0.5-1.5); POTASSIUM 3.3 mmol/L (3.5-5.1)
[2020-09-07 08:00] VITALS: BP 194/115
[2020-09-07] MEDS ORDERED: GLIPIZIDE 5 MG TABLET PO SCH (09:00)
[2020-09-07] MEDS ORDERED: THIAMINE HCL 100 MG/ML 2ML VIAL IVP SCH (09:00)
[2020-09-07] MEDS: AMLODIPINE BESYLATE 5 MG TAB PO SCH ×2 (09:49→21:16)
[2020-09-07] MEDS: FAMOTIDINE/PF 20 MG/2 ML VIAL IV SCH ×2 (09:49→21:16)
[2020-09-07] MEDS: HEPARIN SODIUM 5000UNIT/ML 1ML VIAL SQ SCH ×2 (09:56→21:22)
[2020-09-07 11:00] VITALS: BP 165/101
[2020-09-07] MEDS: HYDRALAZINE HCL 25 MG TABLET PO SCH ×4 (11:49→21:16)
[2020-09-07] MEDS ORDERED: LIDOCAINE HCL-MPF 1% 2ML VIAL IV PRN (13:45)
[2020-09-07 16:08] LABS: CREATININE 1.7 mg/dL (0.5-1.5); POTASSIUM 3.2 mmol/L (3.5-5.1)
[2020-09-07 16:40] VITALS: BP 156/98
[2020-09-07 19:47] VITALS: BP 134/92
[2020-09-07] MEDS ORDERED: METOPROLOL TARTRATE 25 MG TAB PO SCH (21:00)
[2020-09-07 23:56] VITALS: BP 155/94
[2020-09-08 03:56] VITALS: BP 163/99
[2020-09-08 05:50] LABS: CREATININE 1.6 mg/dL (0.5-1.5); MAGNESIUM 1.8 mg/dL (1.80-2.40); POTASSIUM 3.2 mmol/L (3.5-5.1)
[2020-09-08] MEDS: INSULIN HUMULIN R 100 UNIT/ML 3ML SQ SCH (05:54)
[2020-09-08 07:30] VITALS: BP 138/92
[2020-09-08] MEDS ORDERED: POTASSIUM CHLORIDE 20 MEQ ERTAB PO SCH (09:15)
== END 2020-09-08 09:30 | disposition left against medical advice (07) | DRG 682 ==
LOC: EDH 03:45 → EDHIP 03:46 → 3BH 20:18
PROVIDERS: ADMIT Family Medicine; ATTEND Family Medicine
DX: N17.9 Acute kidney failure, unspecified (principal); K85.90 Acute pancreatitis without necrosis or infection, unspecified; K86.1 Other chronic pancreatitis; N18.30 Chronic kidney disease, stage 3 unspecified; E86.9 Volume depletion, unspecified; E11.22 Type 2 diabetes mellitus with diabetic chronic kidney disease; F12.90 Cannabis use, unspecified, uncomplicated; E87.6 Hypokalemia; I12.9 Hypertensive chronic kidney disease with stage 1 through stage 4 chronic kidney disease, or unspecified chronic kidney disease; Z79.899 Other long term (current) drug therapy
CPT/HCPCS: 36415; 74176; 76705; 80048; 80053; 80076; 80305; 81001; 82150; 82550; 82948; 83605; 83690; 83735; 83874; 84484; 85025; 85610; 85730; 87088; C9113; G0378; J1644; J1815; J2060; J2270; J2405; J2550; J2765; J3411; J3480; J3490; J7030

== ENCOUNTER 2020-09-11 03:32 | Emergency (ER) | payer SELFPAY ==
[~2020-09-11 03:32] MED LIST changes: -INSLAN SQ
[2020-09-11] MEDS ORDERED: DiphenhydrAMINE HCL 50 MG/ML VIAL ONE (03:45)
[2020-09-11] MEDS ORDERED: HALOPERIDOL INJ 5 MG/ML VIAL ONE (03:45)
[2020-09-11 04:28] LABS: BASOPHILS % (AUTO) 0.2 % (0.0-5.0); EOSINOPHILS % (AUTO) 1.3 % (0.0-8.0); HEMATOCRIT 41.1 % (42-54); LYMPHOCYTES % (AUTO) 13.4 % (21.0-51.0); MEAN CORPUSCULAR HEMOGLOBIN 28.1 pg (27.0-33.0); MEAN CORPUSCULAR HGB CONC 35.8 g/dL (32.0-36.0); MEAN CORPUSCULAR VOLUME 78.4 fL (79-99); MONOCYTES % (AUTO) 6.5 % (3.0-13.0); NEUTROPHILS % (AUTO) 78.1 % (40.0-77.0); PLATELET COUNT (AUTO) 251 K/uL (130-400); RED BLOOD CELL COUNT(AUTO) 5.24 MIL/uL (4.50-6.20); RED CELL DISTRIBUTION WIDTH 12.5 % (11.0-15.5); WHITE BLOOD COUNT (AUTO) 8.6 K/uL (4.8-10.8)
[2020-09-11 04:54] LABS: CREATININE 1.5 mg/dL (0.5-1.5); POTASSIUM 3.2 mmol/L (3.5-5.1)
[2020-09-11 04:58] LABS: ALBUMIN 2.1 g/dL (3.5-5.0); BILIRUBIN,TOTAL 0.4 mg/dL (0.2-1.0); TOTAL PROTEIN, SERUM 5.6 g/dL (6.0-8.3)
== END 2020-09-11 05:46 | disposition home or self-care (01) ==
LOC: EDH 03:32
DX: R11.10 Vomiting, unspecified (principal); I10 Essential (primary) hypertension; E11.9 Type 2 diabetes mellitus without complications
CPT/HCPCS: 36415; 80053; 83690; 85025; 96361; 96372; 96374; 99284; J1200; J1630

== ENCOUNTER 2021-07-22 18:00 | Emergency (ER) | payer SELFPAY ==
[~2021-07-22] VITALS: Ht 167.6 cm; Wt 81.6 kg
[2021-07-22] MEDS ORDERED: GUAIFENESIN-CODEINE 5 ML SYRUP PO ONE (20:30)
[2021-07-22] MEDS ORDERED: ALBU90AE2 IH (20:51)
[2021-07-22] MEDS ORDERED: BENZ-39 PO (20:51)
[2021-07-22] MEDS ORDERED: IBUP-2070 PO (20:51)
[2021-07-22] MEDS ORDERED: AZIT500T4 PO (20:51)
[2021-07-22] MEDS ORDERED: ACET-66 PO (20:51)
[2021-07-22] MEDS ORDERED: DEXA6TAB7 PO (20:52)
[2021-07-22] MEDS ORDERED: GUAIFENESIN-CODEINE 5 ML SYRUP ONE (21:01)
[2021-07-22 21:02] VITALS: BP 135/79
== END 2021-07-22 21:10 | disposition home or self-care (01) ==
LOC: EDH 18:00
DX: U07.1 COVID-19 (principal); E11.9 Type 2 diabetes mellitus without complications; E78.00 Pure hypercholesterolemia, unspecified; I10 Essential (primary) hypertension; Z79.1 Long term (current) use of non-steroidal anti-inflammatories (NSAID); Z79.52 Long term (current) use of systemic steroids; Z79.84 Long term (current) use of oral hypoglycemic drugs; Z79.899 Other long term (current) drug therapy; Z88.0 Allergy status to penicillin
CPT/HCPCS: 87635; 87804 ×2; 99283; C9803

== ENCOUNTER 2021-07-26 17:30 | Inpatient (IN) | payer OTHER ==
[~2021-07-26] VITALS: Ht 167.6 cm; Wt 114.1 kg
[~2021-07-26 17:30] MED LIST changes: +ACET-66 PO; +ALBU90AE2 IH; +ATROPINE 1MG SYG IVP ONE; +AZIT500T4 PO; +BENZ-39 PO; +CACL 1GM SYG IVP ONE; +DEXA6TAB7 PO; +DEXTROSE 50%-WATER 50 ML DISP.SYRIN IV ONE; +EPINEPHRINE 1MG SYG 10ML IVP ONE; +IBUP-2070 PO; +SODIUM BICARB 8.4% 50ML SYRINGE IVP ONE
[2021-07-26 17:56] LABS: BASOPHILS % (AUTO) 0.1 % (0.0-5.0); HEMATOCRIT 32.8 % (42-54); LYMPHOCYTES % (AUTO) 1.3 % (21.0-51.0); MEAN CORPUSCULAR HEMOGLOBIN 27.6 pg (27.0-33.0); MEAN CORPUSCULAR HGB CONC 33.8 g/dL (32.0-36.0); MEAN CORPUSCULAR VOLUME 81.6 fL (79-99); NEUTROPHILS % (AUTO) 92.6 % (40.0-77.0); NUCLEATED RED BLOOD CELLS 0.1 % (0.0-0.19); PLATELET COUNT (AUTO) 177 K/uL (130-400); RED BLOOD CELL COUNT(AUTO) 4.02 MIL/uL (4.50-6.20); RED CELL DISTRIBUTION WIDTH 13.5 % (11.0-15.5); WHITE BLOOD COUNT (AUTO) 20.2 K/uL (4.8-10.8)
[2021-07-26] MEDS ORDERED: DOXYCYCLINE HYCLATE 100 MG TABLET PO SCH (18:00)
[2021-07-26] MEDS ORDERED: 0.9%NACL 1000ML 1,000 ML IV ONE ×3 (18:00→19:00)
[2021-07-26] MEDS ORDERED: CEFTRIAXONE 1G VIAL IVP ONE (18:00)
[2021-07-26] MEDS ORDERED: SOLU-MEDROL 125MG VIAL IVP ONE (18:00)
[2021-07-26] MEDS ORDERED: CEFTRIAXONE 1G VIAL ONE (18:08)
[2021-07-26] MEDS ORDERED: SOLU-MEDROL 125MG VIAL ONE (18:08)
[2021-07-26] MEDS ORDERED: DOXYCYCLINE HYCLATE 100 MG TABLET PO ONE (18:08)
[2021-07-26] MEDS ORDERED: 0.9%NACL 50ML 50 ML IV ONE (18:09)
[2021-07-26 18:11] LABS: ALBUMIN 1.6 g/dL (3.5-5.0); POTASSIUM 4.7 mmol/L (3.5-5.1)
[2021-07-26 18:15] LABS: BILIRUBIN,TOTAL 0.2 mg/dL (0.2-1.0); CRP QUANTITATIVE 89.6 mg/L (0.00-9.0); TOTAL PROTEIN, SERUM 6.3 g/dL (6.0-8.3)
[2021-07-26 18:33] LABS: B-TYPE NATRIURETIC PEPTIDE 426 pg/mL (0-100)
[2021-07-26 18:34] LABS: CREATININE 9.8 mg/dL (0.5-1.5)
[2021-07-26 18:56] LABS: ABG OXYGEN SATURATION 91.9 % (95.0-99.0); ABG PCO2 28 mmHg (35-48)
[2021-07-26] MEDS ORDERED: HYDROCODONE/ACETAMINOPHEN 5/325 MG TAB PO ONE (19:00)
[2021-07-26] MEDS ORDERED: ONDANSETRON 4MG INJ IVP ONE (20:00)
[2021-07-26] MEDS: DOXYCYCLINE 100MG+NS 250ML IV SCH (20:00)
[2021-07-26] MEDS ORDERED: PANTOPRAZOLE 40 MG/VIAL IVP ONE (20:00)
[2021-07-26] MEDS ORDERED: LACTATED RINGERS 1000ML 1,000 ML IV SCH (20:00)
[2021-07-26] MEDS ORDERED: [UNRECOGNIZED DRUG - OTHER] MISC SCH (20:00)
[2021-07-26] MEDS ORDERED: DEXAMETHASONE SOD PHOSPHATE 4 MG/ML 1ML VIAL IVP SCH (20:00)
[2021-07-26] MEDS ORDERED: ACETAMINOPHEN 325 MG TAB PO PRN (20:00)
[2021-07-26] MEDS: CEFTRIAXONE 1G VIAL IVP SCH (20:00)
[2021-07-26] MEDS ORDERED: ONDANSETRON 4MG INJ IV PRN (20:00)
[2021-07-26] MEDS ORDERED: ERGOCALCIFEROL (VITAMIN D2) 50,000 UNIT CAPSULE PO ONE (20:00)
[2021-07-26 20:06] LABS: APPEARANCE,URINE Clear (CLEAR); BILIRUBIN,URINE Negative (NEGATIVE); COLOR,URINE Yellow (YELLOW); GLUCOSE, URINE (UA) 500 mg/dL (NEGATIVE); KETONES,URINE Negative (NEGATIVE); LEUKOCYTE ESTERASE ,URINE Negative (NEGATIVE); NITRATE,URINE Negative (NEGATIVE); OCCULT BLOOD,URINE Large (NEGATIVE); PROTEIN,URINE >=1000 mg/dL (NEGATIVE)
[2021-07-26 20:14] LABS: BACTERIA,URINE Rare /HPF (None Seen); SQUAMOUS EPITHELIAL CELL,UR Rare /HPF (0-2)
[2021-07-26] MEDS ORDERED: HYDRALAZINE 20MG/ML VIAL IV ONE (20:30)
[2021-07-26] MEDS ORDERED: CLONIDINE HCL 0.1 MG TABLET PO ONE (20:30)
[2021-07-26] MEDS: ALBUTEROL INHALER 90MCG/INH IH SCH (21:00)
[2021-07-26] MEDS: METOPROLOL TARTRATE 25 MG TAB PO SCH (21:02)
[2021-07-26] MEDS: HEPARIN 5,000 UNIT VIAL SQ SCH (21:06)
[2021-07-26] MEDS: INSULIN HUMULIN R 100 UNIT/ML 3ML SQ SCH (21:07)
[2021-07-26] MEDS ORDERED: ERGOCALCIFEROL (VITAMIN D2) 50,000 UNIT CAPSULE ONE (21:09)
[2021-07-27] MEDS: ALBUTEROL INHALER 90MCG/INH IH SCH ×4 (02:30→17:47)
[2021-07-27] MEDS ORDERED: GUAIFENESIN-DM 200/20 MG 10 ML ONE (04:28)
[2021-07-27 07:22] LABS: BASOPHILS % (AUTO) 0.3 % (0.0-5.0); HEMATOCRIT 33.5 % (42-54); LYMPHOCYTES % (AUTO) 1.3 % (21.0-51.0); MEAN CORPUSCULAR HEMOGLOBIN 28.1 pg (27.0-33.0); MEAN CORPUSCULAR HGB CONC 33.7 g/dL (32.0-36.0); MEAN CORPUSCULAR VOLUME 83.3 fL (79-99); NEUTROPHILS % (AUTO) 92.3 % (40.0-77.0); NUCLEATED RED BLOOD CELLS 0.1 % (0.0-0.19); PLATELET COUNT (AUTO) 165 K/uL (130-400); RED BLOOD CELL COUNT(AUTO) 4.02 MIL/uL (4.50-6.20); RED CELL DISTRIBUTION WIDTH 13.7 % (11.0-15.5); WHITE BLOOD COUNT (AUTO) 23.9 K/uL (4.8-10.8)
[2021-07-27] MEDS ORDERED: [UNRECOGNIZED DRUG - REMARK] MISC SCH (07:30)
[2021-07-27 07:52] LABS: ALBUMIN 1.5 g/dL (3.5-5.0); BILIRUBIN,TOTAL 0.3 mg/dL (0.2-1.0); CRP QUANTITATIVE 147.3 mg/L (0.00-9.0); POTASSIUM 5.2 mmol/L (3.5-5.1); TOTAL PROTEIN, SERUM 6.2 g/dL (6.0-8.3)
[2021-07-27 07:58] LABS: CREATININE 9.3 mg/dL (0.5-1.5)
[2021-07-27] MEDS: INSULIN HUMULIN R 100 UNIT/ML 3ML SQ SCH ×4 (08:07→21:00)
[2021-07-27 08:16] LABS: HEMOGLOBIN A1C 6.2 % (4.0-6.0)
[2021-07-27] MEDS: CEFTRIAXONE 1G VIAL IVP SCH ×2 (08:31→13:33)
[2021-07-27] MEDS: DOXYCYCLINE 100MG+NS 250ML IV SCH ×2 (08:31→21:58)
[2021-07-27] MEDS: DEXAMETHASONE SOD PHOSPHATE 4 MG/ML 1ML VIAL IVP SCH ×2 (08:32→21:59)
[2021-07-27] MEDS: PANTOPRAZOLE 40 MG/VIAL IVP SCH (08:32)
[2021-07-27] MEDS: METOPROLOL TARTRATE 25 MG TAB PO SCH ×2 (08:32→21:59)
[2021-07-27] MEDS: HEPARIN 5,000 UNIT VIAL SQ SCH ×3 (08:43→22:05)
[2021-07-27] MEDS ORDERED: AMLODIPINE 5 MG TAB PO SCH (09:00)
[2021-07-27] MEDS ORDERED: ASCORBIC ACID 500 MG TAB PO SCH (09:00)
[2021-07-27] MEDS ORDERED: ZINC SULFATE 220 CAPSULE PO SCH (09:00)
[2021-07-27] MEDS ORDERED: NA ZIRCON CYCLOSIL(LOKELMA 10GM) PO SCH (09:00)
[2021-07-27] MEDS: AMLODIPINE 5 MG TAB PO SCH ×2 (09:51→21:59)
[2021-07-27] MEDS ORDERED: DEXMEDETOMIDINE HCL 200 MCG in 0.9%NACL 50ML 50 ML IV PRN (14:30)
[2021-07-27] MEDS ORDERED: DEXMEDETOMIDINE 400MCG/NS100ML IV SCH (14:30)
[2021-07-27 20:00] VITALS: BP 150/70
[2021-07-28] VITALS (28 sets, daily range): BP systolic 113–180; BP diastolic 58–110
[2021-07-28] MEDS: ALBUTEROL INHALER 90MCG/INH IH SCH ×2 (06:17)
[2021-07-28 07:29] LABS: BASOPHILS % (AUTO) 0.3 % (0.0-5.0); HEMATOCRIT 31.3 % (42-54); LYMPHOCYTES % (AUTO) 1.4 % (21.0-51.0); MEAN CORPUSCULAR HEMOGLOBIN 27.6 pg (27.0-33.0); MEAN CORPUSCULAR HGB CONC 33.5 g/dL (32.0-36.0); MEAN CORPUSCULAR VOLUME 82.4 fL (79-99); MONOCYTES % (AUTO) 3.1 % (3.0-13.0); NEUTROPHILS % (AUTO) 92.5 % (40.0-77.0); NUCLEATED RED BLOOD CELLS 0.2 % (0.0-0.19); PLATELET COUNT (AUTO) 116 K/uL (130-400); RED CELL DISTRIBUTION WIDTH 14.3 % (11.0-15.5); WHITE BLOOD COUNT (AUTO) 22.7 K/uL (4.8-10.8)
[2021-07-28 07:41] LABS: INR 1.07 (0.85-1.15); PROTHROMBIN TIME 11.6 SEC (9.6-11.6)
[2021-07-28 07:43] LABS: PARTIAL THROMBOPLASTIN TIME 28.4 SEC (26.3-35.5)
[2021-07-28 07:54] LABS: ALBUMIN 1.4 g/dL (3.5-5.0); BILIRUBIN,TOTAL 0.3 mg/dL (0.2-1.0); TOTAL PROTEIN, SERUM 5.9 g/dL (6.0-8.3)
[2021-07-28 08:01] LABS: CREATININE 10.5 mg/dL (0.5-1.5)
[2021-07-28 08:10] LABS: CRP QUANTITATIVE 223.8 mg/L (0.00-9.0)
[2021-07-28] MEDS: INSULIN HUMULIN R 100 UNIT/ML 3ML SQ SCH ×4 (08:26→21:00)
[2021-07-28] MEDS: DOXYCYCLINE 100MG+NS 250ML IV SCH ×2 (08:37→20:36)
[2021-07-28] MEDS: DEXAMETHASONE SOD PHOSPHATE 4 MG/ML 1ML VIAL IVP SCH ×2 (08:37→20:36)
[2021-07-28] MEDS: PANTOPRAZOLE 40 MG/VIAL IVP SCH (08:37)
[2021-07-28] MEDS: AMLODIPINE 5 MG TAB PO SCH ×2 (09:00→20:41)
[2021-07-28] MEDS: HEPARIN 5,000 UNIT VIAL SQ SCH ×3 (09:00→20:40)
[2021-07-28] MEDS: METOPROLOL TARTRATE 25 MG TAB PO SCH ×2 (09:00→20:41)
[2021-07-28] MEDS: CEFTRIAXONE 1G VIAL IVP SCH (12:07)
[2021-07-28] MEDS ORDERED: DEXMEDETOMIDINE 400MCG/NS100ML IV ONE ×2 (15:32→20:39)
[2021-07-28] MEDS ORDERED: DEXMEDETOMIDINE HCL 400 MCG in 0.9%NACL 100ML 96 ML IV PRN (16:00)
[2021-07-28] MEDS ORDERED: ALBUTEROL INHALER 90MCG/INH IH PRN (16:30)
[2021-07-28 18:11] LABS: HEMATOCRIT 25.3 % (42-54)
[2021-07-28 18:23] LABS: HEMOGLOBIN A1C 6.3 % (4.0-6.0)
[2021-07-28 18:36] LABS: % IRON SATURATION 60.3 % (30-44)
[2021-07-28 18:39] LABS: ALBUMIN 1.3 g/dL (3.5-5.0)
[2021-07-28 18:45] LABS: CREATININE 11.5 mg/dL (0.5-1.5)
[2021-07-28] MEDS: GUAIFENESIN-DM 200/20 MG 10 ML PO PRN (22:40)
[2021-07-29] VITALS (34 sets, daily range): BP systolic 112–173; BP diastolic 63–109
[2021-07-29 04:48] LABS: HEMATOCRIT 27.7 % (42-54); MEAN CORPUSCULAR HEMOGLOBIN 27.9 pg (27.0-33.0); MEAN CORPUSCULAR HGB CONC 33.9 g/dL (32.0-36.0); MEAN CORPUSCULAR VOLUME 82.2 fL (79-99); NEUTROPHILS % (AUTO) 90.6 % (40.0-77.0); PLATELET COUNT (AUTO) 87 K/uL (130-400); RED BLOOD CELL COUNT(AUTO) 3.37 MIL/uL (4.50-6.20); RED CELL DISTRIBUTION WIDTH 14.2 % (11.0-15.5)
[2021-07-29 04:49] LABS: BASOPHILS % (AUTO) 0.3 % (0.0-5.0); LYMPHOCYTES % (AUTO) 1.8 % (21.0-51.0); MONOCYTES % (AUTO) 3.2 % (3.0-13.0); NUCLEATED RED BLOOD CELLS 0.1 % (0.0-0.19)
[2021-07-29 05:11] LABS: ALBUMIN 1.3 g/dL (3.5-5.0); BILIRUBIN,TOTAL 0.4 mg/dL (0.2-1.0); CREATININE 7.4 mg/dL (0.5-1.5); CRP QUANTITATIVE 143.7 mg/L (0.00-9.0); POTASSIUM 4.7 mmol/L (3.5-5.1); TOTAL PROTEIN, SERUM 5.3 g/dL (6.0-8.3)
[2021-07-29] MEDS: INSULIN HUMULIN R 100 UNIT/ML 3ML SQ SCH ×4 (06:22→21:46)
[2021-07-29] MEDS: DOXYCYCLINE 100MG+NS 250ML IV SCH ×2 (08:45→21:00)
[2021-07-29] MEDS: DEXAMETHASONE SOD PHOSPHATE 4 MG/ML 1ML VIAL IVP SCH ×2 (08:46→21:45)
[2021-07-29] MEDS: PANTOPRAZOLE 40 MG/VIAL IVP SCH (08:46)
[2021-07-29] MEDS: METOPROLOL TARTRATE 25 MG TAB PO SCH ×2 (08:46→21:45)
[2021-07-29] MEDS: AMLODIPINE 5 MG TAB PO SCH ×2 (08:46→21:45)
[2021-07-29] MEDS ORDERED: DEXMEDETOMIDINE 400MCG/NS100ML IV ONE (09:04)
[2021-07-29] MEDS: DEXMEDETOMIDINE 400MCG/NS100ML IV SCH ×2 (09:16→22:00)
[2021-07-29] MEDS: CEFTRIAXONE 1G VIAL IVP SCH (12:01)
[2021-07-29 13:12] LABS: HEPATITIS Bs ANTIGEN SCREEN P Negative (Negative)
[2021-07-29 20:03] LABS: BASOPHILS % (AUTO) 0.3 % (0.0-5.0); HEMATOCRIT 26.6 % (42-54); LYMPHOCYTES % (AUTO) 1.7 % (21.0-51.0); MEAN CORPUSCULAR HEMOGLOBIN 28.4 pg (27.0-33.0); MEAN CORPUSCULAR HGB CONC 36.1 g/dL (32.0-36.0); MEAN CORPUSCULAR VOLUME 78.7 fL (79-99); MONOCYTES % (AUTO) 5.1 % (3.0-13.0); NEUTROPHILS % (AUTO) 89.9 % (40.0-77.0); NUCLEATED RED BLOOD CELLS 0.2 % (0.0-0.19); PLATELET COUNT (AUTO) 75 K/uL (130-400); RED BLOOD CELL COUNT(AUTO) 3.38 MIL/uL (4.50-6.20); RED CELL DISTRIBUTION WIDTH 13.6 % (11.0-15.5); WHITE BLOOD COUNT (AUTO) 20.1 K/uL (4.8-10.8)
[2021-07-29] MEDS ORDERED: HEPARIN 5,000 UNIT VIAL IV SCH (20:30)
[2021-07-29] MEDS ORDERED: HEPARIN 5,000 UNIT VIAL IJ SCH (21:00)
[2021-07-29] MEDS ORDERED: LABETALOL 20MG SYG IV ONE (23:00)
[2021-07-30] VITALS (36 sets, daily range): BP systolic 100–194; BP diastolic 56–116
[2021-07-30 05:27] LABS: BASOPHILS % (AUTO) 0.1 % (0.0-5.0); HEMATOCRIT 25.7 % (42-54); LYMPHOCYTES % (AUTO) 1.3 % (21.0-51.0); MEAN CORPUSCULAR HEMOGLOBIN 27.4 pg (27.0-33.0); MEAN CORPUSCULAR HGB CONC 33.9 g/dL (32.0-36.0); MEAN CORPUSCULAR VOLUME 80.8 fL (79-99); MONOCYTES % (AUTO) 4.3 % (3.0-13.0); NUCLEATED RED BLOOD CELLS 0.2 % (0.0-0.19); PLATELET COUNT (AUTO) 67 K/uL (130-400); RED BLOOD CELL COUNT(AUTO) 3.18 MIL/uL (4.50-6.20); RED CELL DISTRIBUTION WIDTH 13.8 % (11.0-15.5); WHITE BLOOD COUNT (AUTO) 15.6 K/uL (4.8-10.8)
[2021-07-30 05:53] LABS: ALBUMIN 1.3 g/dL (3.5-5.0); BILIRUBIN,TOTAL 0.4 mg/dL (0.2-1.0); CREATININE 5.8 mg/dL (0.5-1.5); POTASSIUM 4.2 mmol/L (3.5-5.1); TOTAL PROTEIN, SERUM 4.8 g/dL (6.0-8.3)
[2021-07-30] MEDS: DEXMEDETOMIDINE 400MCG/NS100ML IV SCH ×3 (06:00→21:00)
[2021-07-30] MEDS: INSULIN HUMULIN R 100 UNIT/ML 3ML SQ SCH ×4 (07:09→20:59)
[2021-07-30] MEDS: DOCUSATE SODIUM 100 MG CAP PO SCH ×3 (08:06→23:41)
[2021-07-30] MEDS: METOPROLOL TARTRATE 25 MG TAB PO SCH ×2 (08:06→20:58)
[2021-07-30] MEDS: AMLODIPINE 5 MG TAB PO SCH ×2 (08:06→20:58)
[2021-07-30] MEDS: SENNOSIDES 8.6 MG TABLET PO SCH (08:08)
[2021-07-30] MEDS: DEXAMETHASONE SOD PHOSPHATE 4 MG/ML 1ML VIAL IVP SCH ×2 (08:08→20:58)
[2021-07-30] MEDS: PANTOPRAZOLE 40 MG/VIAL IVP SCH (08:10)
[2021-07-31] VITALS (16 sets, daily range): BP systolic 126–169; BP diastolic 68–95
[2021-07-31] MEDS: DOCUSATE SODIUM 100 MG CAP PO SCH ×3 (06:45→23:00)
[2021-07-31] MEDS: INSULIN HUMULIN R 100 UNIT/ML 3ML SQ SCH ×4 (06:46→21:00)
[2021-07-31 06:51] LABS: BASOPHILS % (AUTO) 0.2 % (0.0-5.0); HEMATOCRIT 25.3 % (42-54); LYMPHOCYTES % (AUTO) 1.8 % (21.0-51.0); MEAN CORPUSCULAR HEMOGLOBIN 28.1 pg (27.0-33.0); MEAN CORPUSCULAR VOLUME 82.7 fL (79-99); MONOCYTES % (AUTO) 5.4 % (3.0-13.0); NEUTROPHILS % (AUTO) 87.9 % (40.0-77.0); PLATELET COUNT (AUTO) 59 K/uL (130-400); RED BLOOD CELL COUNT(AUTO) 3.06 MIL/uL (4.50-6.20); RED CELL DISTRIBUTION WIDTH 13.3 % (11.0-15.5); WHITE BLOOD COUNT (AUTO) 14.7 K/uL (4.8-10.8)
[2021-07-31 07:07] LABS: ALBUMIN 1.4 g/dL (3.5-5.0); BILIRUBIN,TOTAL 0.4 mg/dL (0.2-1.0); CREATININE 5.3 mg/dL (0.5-1.5); POTASSIUM 4.1 mmol/L (3.5-5.1); TOTAL PROTEIN, SERUM 4.8 g/dL (6.0-8.3)
[2021-07-31] MEDS: AMLODIPINE 5 MG TAB PO SCH (07:48)
[2021-07-31] MEDS ORDERED: ARGATROBAN 250 MG/2.5 ML VIAL 250 MG in 0.9% NACL 250ML 250 ML IV PRN (08:00)
[2021-07-31] MEDS: DEXMEDETOMIDINE 400MCG/NS100ML IV SCH ×3 (08:23→22:00)
[2021-07-31] MEDS: PANTOPRAZOLE 40 MG/VIAL IVP SCH ×2 (08:25→21:00)
[2021-07-31] MEDS: DEXAMETHASONE SOD PHOSPHATE 4 MG/ML 1ML VIAL IVP SCH ×2 (08:25→21:00)
[2021-07-31] MEDS: GUAIFENESIN-DM 200/20 MG 10 ML PO PRN (08:25)
[2021-07-31] MEDS: METOPROLOL TARTRATE 25 MG TAB PO SCH ×2 (08:26→21:00)
[2021-07-31] MEDS: SENNOSIDES 8.6 MG TABLET PO SCH ×2 (08:26→09:00)
[2021-07-31 08:27] LABS: INR 1.05 (0.85-1.15); PROTHROMBIN TIME 11.4 SEC (9.6-11.6)
[2021-08-01] VITALS (24 sets, daily range): BP systolic 97–150; BP diastolic 58–92
[2021-08-01] MEDS: DEXMEDETOMIDINE 400MCG/NS100ML IV SCH ×4 (02:44→17:22)
[2021-08-01] MEDS: DOCUSATE SODIUM 100 MG CAP PO SCH (07:00)
[2021-08-01] MEDS: INSULIN HUMULIN R 100 UNIT/ML 3ML SQ SCH ×4 (07:30→21:41)
[2021-08-01 08:39] LABS: ALBUMIN 1.4 g/dL (3.5-5.0); BILIRUBIN,TOTAL 0.3 mg/dL (0.2-1.0); CREATININE 7.3 mg/dL (0.5-1.5); POTASSIUM 4.2 mmol/L (3.5-5.1)
[2021-08-01 08:47] LABS: BASOPHILS % (AUTO) 0.1 % (0.0-5.0); HEMATOCRIT 26.1 % (42-54); LYMPHOCYTES % (AUTO) 1.5 % (21.0-51.0); MEAN CORPUSCULAR HEMOGLOBIN 27.2 pg (27.0-33.0); MEAN CORPUSCULAR HGB CONC 34.1 g/dL (32.0-36.0); MEAN CORPUSCULAR VOLUME 79.8 fL (79-99); MONOCYTES % (AUTO) 3.8 % (3.0-13.0); NEUTROPHILS % (AUTO) 90.9 % (40.0-77.0); PLATELET COUNT (AUTO) 52 K/uL (130-400); RED BLOOD CELL COUNT(AUTO) 3.27 MIL/uL (4.50-6.20); RED CELL DISTRIBUTION WIDTH 12.8 % (11.0-15.5); WHITE BLOOD COUNT (AUTO) 15.4 K/uL (4.8-10.8)
[2021-08-01] MEDS: PANTOPRAZOLE 40 MG/VIAL IVP SCH ×2 (08:49→21:38)
[2021-08-01] MEDS: DEXAMETHASONE SOD PHOSPHATE 4 MG/ML 1ML VIAL IVP SCH ×2 (08:49→21:38)
[2021-08-01] MEDS: METOPROLOL TARTRATE 25 MG TAB PO SCH ×2 (08:49→21:38)
[2021-08-01 11:56] LABS: BASOPHILS % (AUTO) 0.2 % (0.0-5.0); HEMATOCRIT 26.9 % (42-54); MEAN CORPUSCULAR HEMOGLOBIN 28.4 pg (27.0-33.0); MEAN CORPUSCULAR HGB CONC 34.6 g/dL (32.0-36.0); MEAN CORPUSCULAR VOLUME 82.3 fL (79-99); NEUTROPHILS % (AUTO) 92.6 % (40.0-77.0); PLATELET COUNT (AUTO) 52 K/uL (130-400); RED BLOOD CELL COUNT(AUTO) 3.27 MIL/uL (4.50-6.20); RED CELL DISTRIBUTION WIDTH 12.9 % (11.0-15.5); WHITE BLOOD COUNT (AUTO) 21.3 K/uL (4.8-10.8)
[2021-08-01] MEDS: ARGATROBAN 250 MG/2.5 ML VIAL 250 MG in 0.9% NACL 250ML 250 ML IV PRN (13:00)
[2021-08-01 15:34] LABS: INR 1.31 (0.85-1.15); PROTHROMBIN TIME 13.9 SEC (9.6-11.6)
[2021-08-01 15:35] LABS: PARTIAL THROMBOPLASTIN TIME 40.7 SEC (26.3-35.5)
[2021-08-01] MEDS: GUAIFENESIN-DM 200/20 MG 10 ML PO PRN (21:38)
[2021-08-01] MEDS ORDERED: IVERMECTIN 3 MG TAB PO SCH (22:00)
[2021-08-02] VITALS (21 sets, daily range): BP systolic 124–179; BP diastolic 65–104
[2021-08-02] MEDS: DEXMEDETOMIDINE 400MCG/NS100ML IV SCH ×4 (00:31→15:24)
[2021-08-02] MEDS: METOPROLOL TARTRATE 25 MG TAB PO PRN ×3 (02:14→18:17)
[2021-08-02 04:32] LABS: BASOPHILS % (AUTO) 0.3 % (0.0-5.0); EOSINOPHILS % (AUTO) 0.1 % (0.0-8.0); LYMPHOCYTES % (AUTO) 1.2 % (21.0-51.0); MEAN CORPUSCULAR HGB CONC 34.6 g/dL (32.0-36.0); MEAN CORPUSCULAR VOLUME 80.7 fL (79-99); MONOCYTES % (AUTO) 3.3 % (3.0-13.0); NEUTROPHILS % (AUTO) 91.9 % (40.0-77.0); PLATELET COUNT (AUTO) 52 K/uL (130-400); RED BLOOD CELL COUNT(AUTO) 3.22 MIL/uL (4.50-6.20); RED CELL DISTRIBUTION WIDTH 12.7 % (11.0-15.5); WHITE BLOOD COUNT (AUTO) 19.5 K/uL (4.8-10.8)
[2021-08-02 04:45] LABS: ALBUMIN 1.4 g/dL (3.5-5.0); BILIRUBIN,TOTAL 0.3 mg/dL (0.2-1.0); CREATININE 5.2 mg/dL (0.5-1.5); POTASSIUM 3.8 mmol/L (3.5-5.1)
[2021-08-02] MEDS: INSULIN HUMULIN R 100 UNIT/ML 3ML SQ SCH ×4 (07:51→20:19)
[2021-08-02] MEDS: METOPROLOL TARTRATE 25 MG TAB PO SCH ×2 (07:52→20:17)
[2021-08-02] MEDS: ERGOCALCIFEROL (VITAMIN D2) 50,000 UNIT CAPSULE PO SCH (07:52)
[2021-08-02] MEDS: DEXAMETHASONE SOD PHOSPHATE 4 MG/ML 1ML VIAL IVP SCH ×2 (07:52→20:18)
[2021-08-02] MEDS: PANTOPRAZOLE 40 MG/VIAL IVP SCH ×2 (07:54→20:19)
[2021-08-02] MEDS ORDERED: IVERMECTIN 3 MG TAB PO SCH (09:00)
[2021-08-02] MEDS: ARGATROBAN 250 MG/2.5 ML VIAL 250 MG in 0.9% NACL 250ML 250 ML IV PRN (15:19)
[2021-08-02] MEDS: GUAIFENESIN-DM 200/20 MG 10 ML PO PRN (20:17)
[2021-08-03] VITALS (22 sets, daily range): BP systolic 136–182; BP diastolic 69–103
[2021-08-03] MEDS: DEXMEDETOMIDINE 400MCG/NS100ML IV SCH ×5 (01:43→20:01)
[2021-08-03] MEDS: GUAIFENESIN-DM 200/20 MG 10 ML PO PRN (01:44)
[2021-08-03 04:00] LABS: BASOPHILS % (AUTO) 0.1 % (0.0-5.0); HEMATOCRIT 23.6 % (42-54); LYMPHOCYTES % (AUTO) 1.1 % (21.0-51.0); MEAN CORPUSCULAR HEMOGLOBIN 27.7 pg (27.0-33.0); MEAN CORPUSCULAR HGB CONC 33.9 g/dL (32.0-36.0); MEAN CORPUSCULAR VOLUME 81.7 fL (79-99); MONOCYTES % (AUTO) 1.9 % (3.0-13.0); PLATELET COUNT (AUTO) 52 K/uL (130-400); RED BLOOD CELL COUNT(AUTO) 2.89 MIL/uL (4.50-6.20); RED CELL DISTRIBUTION WIDTH 12.7 % (11.0-15.5); WHITE BLOOD COUNT (AUTO) 20.3 K/uL (4.8-10.8)
[2021-08-03 04:09] LABS: PARTIAL THROMBOPLASTIN TIME 67.6 SEC (26.3-35.5)
[2021-08-03 04:12] LABS: ALBUMIN 1.2 g/dL (3.5-5.0); BILIRUBIN,TOTAL 0.3 mg/dL (0.2-1.0); CREATININE 6.5 mg/dL (0.5-1.5); POTASSIUM 4.6 mmol/L (3.5-5.1); TOTAL PROTEIN, SERUM 4.6 g/dL (6.0-8.3)
[2021-08-03 04:24] LABS: INR 3.63 (0.85-1.15); PROTHROMBIN TIME 35.2 SEC (9.6-11.6)
[2021-08-03] MEDS: INSULIN HUMULIN R 100 UNIT/ML 3ML SQ SCH ×4 (07:07→21:13)
[2021-08-03] MEDS: METOPROLOL TARTRATE 25 MG TAB PO SCH ×2 (07:29→20:51)
[2021-08-03] MEDS: ERGOCALCIFEROL (VITAMIN D2) 50,000 UNIT CAPSULE PO SCH (07:29)
[2021-08-03] MEDS: PANTOPRAZOLE 40 MG/VIAL IVP SCH ×2 (07:29→20:51)
[2021-08-03] MEDS: DEXAMETHASONE SOD PHOSPHATE 4 MG/ML 1ML VIAL IVP SCH (07:29)
[2021-08-03] MEDS ORDERED: PHARMACY COMMUNICATION MISC SCH (09:00)
[2021-08-03] MEDS ORDERED: COMPOUND IV MISC 1 EACH IVSOLN MISC PRN (09:30)
[2021-08-03] MEDS: [UNRECOGNIZED DRUG - OTHER] IVP SCH (10:58)
[2021-08-03] MEDS: METHYLPREDNISOLONE SUCC IVP SCH (10:58)
[2021-08-03] MEDS: APIXABAN 5 MG TABLET PO SCH ×2 (11:00→20:51)
[2021-08-03] MEDS: METOPROLOL TARTRATE 25 MG TAB PO PRN (11:11)
[2021-08-03] MEDS: BUSPIRONE HCL 5 MG TABLET PO SCH (20:50)
[2021-08-03] MEDS: INSULIN GLARGINE 100 UNITS/ML 10 ML VIAL SQ SCH (21:11)
[2021-08-04] VITALS (38 sets, daily range): BP systolic 87–179; BP diastolic 34–102
[2021-08-04] MEDS: DEXMEDETOMIDINE 400MCG/NS100ML IV SCH ×5 (01:30→23:51)
[2021-08-04 05:29] LABS: BASOPHILS % (AUTO) 0.1 % (0.0-5.0); HEMATOCRIT 24.4 % (42-54); LYMPHOCYTES % (AUTO) 1.2 % (21.0-51.0); MEAN CORPUSCULAR HEMOGLOBIN 27.4 pg (27.0-33.0); MEAN CORPUSCULAR HGB CONC 33.6 g/dL (32.0-36.0); MEAN CORPUSCULAR VOLUME 81.6 fL (79-99); NEUTROPHILS % (AUTO) 94.3 % (40.0-77.0); PLATELET COUNT (AUTO) 71 K/uL (130-400); RED BLOOD CELL COUNT(AUTO) 2.99 MIL/uL (4.50-6.20); RED CELL DISTRIBUTION WIDTH 12.9 % (11.0-15.5); WHITE BLOOD COUNT (AUTO) 22.4 K/uL (4.8-10.8)
[2021-08-04 06:10] LABS: ALBUMIN 1.3 g/dL (3.5-5.0); BILIRUBIN,TOTAL 0.3 mg/dL (0.2-1.0); CREATININE 7.4 mg/dL (0.5-1.5); CRP QUANTITATIVE 141.2 mg/L (0.00-9.0); POTASSIUM 4.5 mmol/L (3.5-5.1); TOTAL PROTEIN, SERUM 4.9 g/dL (6.0-8.3)
[2021-08-04] MEDS: INSULIN HUMULIN R 100 UNIT/ML 3ML SQ SCH ×4 (06:18→21:20)
[2021-08-04] MEDS: GUAIFENESIN-DM 200/20 MG 10 ML PO PRN (06:25)
[2021-08-04] MEDS: PANTOPRAZOLE 40 MG/VIAL IVP SCH ×2 (09:28→19:44)
[2021-08-04] MEDS: [UNRECOGNIZED DRUG - OTHER] IVP SCH (09:28)
[2021-08-04] MEDS: METHYLPREDNISOLONE SUCC IVP SCH (09:28)
[2021-08-04] MEDS: METOPROLOL TARTRATE 25 MG TAB PO SCH ×2 (09:28→19:44)
[2021-08-04] MEDS: BUSPIRONE HCL 5 MG TABLET PO SCH ×2 (09:28→19:45)
[2021-08-04] MEDS: APIXABAN 5 MG TABLET PO SCH ×2 (09:29→19:44)
[2021-08-04] MEDS: ERGOCALCIFEROL (VITAMIN D2) 50,000 UNIT CAPSULE PO SCH (09:29)
[2021-08-04] MEDS: INSULIN GLARGINE 100 UNITS/ML 10 ML VIAL SQ SCH ×2 (09:30→21:27)
[2021-08-04] MEDS: BENZONATATE 100 MG CAPSULE PO PRN (16:03)
[2021-08-04] MEDS ORDERED: IVERMECTIN 3 MG TAB PO ONE (22:00)
[2021-08-05] VITALS (23 sets, daily range): BP systolic 96–157; BP diastolic 46–88
[2021-08-05] MEDS: GUAIFENESIN-DM 200/20 MG 10 ML PO PRN (02:14)
[2021-08-05] MEDS: INSULIN HUMULIN R 100 UNIT/ML 3ML SQ SCH ×4 (06:28→22:01)
[2021-08-05] MEDS: [UNRECOGNIZED DRUG - OTHER] IVP SCH (06:35)
[2021-08-05] MEDS: METHYLPREDNISOLONE SUCC IVP SCH (06:35)
[2021-08-05] MEDS: INSULIN GLARGINE 100 UNITS/ML 10 ML VIAL SQ SCH ×2 (06:40→22:05)
[2021-08-05] MEDS: DEXMEDETOMIDINE 400MCG/NS100ML IV SCH ×3 (06:41→16:33)
[2021-08-05 07:49] LABS: BASOPHILS % (AUTO) 0.1 % (0.0-5.0); HEMATOCRIT 24.1 % (42-54); LYMPHOCYTES % (AUTO) 0.8 % (21.0-51.0); MEAN CORPUSCULAR HEMOGLOBIN 28.2 pg (27.0-33.0); MEAN CORPUSCULAR HGB CONC 34.4 g/dL (32.0-36.0); MONOCYTES % (AUTO) 3.3 % (3.0-13.0); PLATELET COUNT (AUTO) 108 K/uL (130-400); RED BLOOD CELL COUNT(AUTO) 2.94 MIL/uL (4.50-6.20); RED CELL DISTRIBUTION WIDTH 13.1 % (11.0-15.5); WHITE BLOOD COUNT (AUTO) 27.3 K/uL (4.8-10.8)
[2021-08-05 08:06] LABS: ALBUMIN 1.2 g/dL (3.5-5.0); BILIRUBIN,TOTAL 0.3 mg/dL (0.2-1.0); POTASSIUM 4.5 mmol/L (3.5-5.1); TOTAL PROTEIN, SERUM 4.9 g/dL (6.0-8.3)
[2021-08-05] MEDS: PANTOPRAZOLE 40 MG/VIAL IVP SCH ×2 (09:15→20:18)
[2021-08-05] MEDS: APIXABAN 5 MG TABLET PO SCH ×2 (09:16→20:17)
[2021-08-05] MEDS: METOPROLOL TARTRATE 25 MG TAB PO SCH ×2 (09:16→20:18)
[2021-08-05] MEDS: BUSPIRONE HCL 5 MG TABLET PO SCH ×2 (09:16→20:18)
[2021-08-05] MEDS: BENZONATATE 100 MG CAPSULE PO PRN ×2 (11:20→18:20)
[2021-08-05] MEDS ORDERED: MORPHINE 2 MG SYG IVP PRN (11:30)
[2021-08-05] MEDS ORDERED: HYDROMORPHONE 2 MG VIAL (2MG/ML) IVP PRN (11:30)
[2021-08-06] VITALS (41 sets, daily range): BP systolic 93–196; BP diastolic 47–108
[2021-08-06] MEDS: GUAIFENESIN-DM 200/20 MG 10 ML PO PRN ×2 (02:07→20:30)
[2021-08-06 04:17] LABS: BASOPHILS % (AUTO) 0.2 % (0.0-5.0); HEMATOCRIT 25.8 % (42-54); LYMPHOCYTES % (AUTO) 1.1 % (21.0-51.0); MEAN CORPUSCULAR HEMOGLOBIN 27.1 pg (27.0-33.0); MEAN CORPUSCULAR HGB CONC 33.3 g/dL (32.0-36.0); MEAN CORPUSCULAR VOLUME 81.4 fL (79-99); MONOCYTES % (AUTO) 2.9 % (3.0-13.0); NEUTROPHILS % (AUTO) 93.9 % (40.0-77.0); PLATELET COUNT (AUTO) 130 K/uL (130-400); RED BLOOD CELL COUNT(AUTO) 3.17 MIL/uL (4.50-6.20)
[2021-08-06 04:21] LABS: WHITE BLOOD COUNT (AUTO) 31.3 K/uL (4.8-10.8)
[2021-08-06 04:37] LABS: BAND NEUTROPHILS % (MANUAL) 1 % (0-2); LYMPHOCYTES % (MANUAL) 4 % (22-44); MAN.DIFF COMMENT-IMPRESSION MANUAL DIFFERENTIAL; MONOCYTES % (MANUAL) 3 % (2-9); PLATELET MORPHOLOGY COMMENT ADEQUATE; SEGMENTED NEUTROPHILS % 92 % (40-70)
[2021-08-06 04:40] LABS: ALBUMIN 1.4 g/dL (3.5-5.0); BILIRUBIN,TOTAL 0.3 mg/dL (0.2-1.0); CRP QUANTITATIVE 42.1 mg/L (0.00-9.0); POTASSIUM 4.2 mmol/L (3.5-5.1)
[2021-08-06] MEDS: [UNRECOGNIZED DRUG - OTHER] IVP SCH (05:48)
[2021-08-06] MEDS: METHYLPREDNISOLONE SUCC IVP SCH (05:48)
[2021-08-06] MEDS: INSULIN HUMULIN R 100 UNIT/ML 3ML SQ SCH ×4 (06:08→20:33)
[2021-08-06] MEDS: INSULIN GLARGINE 100 UNITS/ML 10 ML VIAL SQ SCH ×2 (07:30→20:33)
[2021-08-06] MEDS: PANTOPRAZOLE 40 MG/VIAL IVP SCH ×2 (08:12→20:29)
[2021-08-06] MEDS: DEXMEDETOMIDINE 400MCG/NS100ML IV SCH ×5 (08:13→21:23)
[2021-08-06] MEDS: BUSPIRONE HCL 5 MG TABLET PO SCH ×2 (08:14→20:29)
[2021-08-06] MEDS: MIDODRINE HCL 5 MG TABLET PO SCH ×2 (08:14→13:18)
[2021-08-06] MEDS: METOPROLOL TARTRATE 25 MG TAB PO SCH ×2 (09:00→20:30)
[2021-08-06 09:38] LABS: INR 1.1 (0.85-1.15); PROTHROMBIN TIME 11.9 SEC (9.6-11.6)
[2021-08-06 09:40] LABS: PARTIAL THROMBOPLASTIN TIME 26.9 SEC (26.3-35.5)
[2021-08-06] MEDS ORDERED: ALBUMIN (HUMAN) 25% 100 ML IV ONE (10:47)
[2021-08-06] MEDS ORDERED: DEXTROSE 50%-WATER 50 ML DISP.SYRIN IV ONE (13:16)
[2021-08-06] MEDS ORDERED: MEROPENEM 1 GM VIAL IVP SCH (13:30)
[2021-08-06] MEDS ORDERED: VANCOMYCIN PROTOCOL PER PHARMACY IV SCH (13:30)
[2021-08-06] MEDS ORDERED: COMPOUND IV REFRIGERATED 1 EACH IVSOLN MISC PRN (14:00)
[2021-08-06] MEDS ORDERED: VANCOMYCIN 1.25GM/NS 250ML IVPB SCH ×2 (14:00)
[2021-08-06] MEDS: APIXABAN 5 MG TABLET PO SCH ×2 (16:25→20:30)
[2021-08-06] MEDS: HYDRALAZINE 20MG/ML VIAL IV PRN (17:23)
[2021-08-06] MEDS: VANCOMYCIN 1G 1.25 GM in 0.9% NACL 250ML 250 ML IVPB SCH (20:29)
[2021-08-06] MEDS: BENZONATATE 100 MG CAPSULE PO PRN (20:30)
[2021-08-07] VITALS (31 sets, daily range): BP systolic 89–152; BP diastolic 46–96
[2021-08-07] MEDS: BENZONATATE 100 MG CAPSULE PO PRN ×2 (01:36→20:27)
[2021-08-07] MEDS: GUAIFENESIN-DM 200/20 MG 10 ML PO PRN ×2 (01:36→20:27)
[2021-08-07 04:41] LABS: HEMATOCRIT 22.7 % (42-54); MEAN CORPUSCULAR HEMOGLOBIN 27.7 pg (27.0-33.0); MEAN CORPUSCULAR VOLUME 83.8 fL (79-99); PLATELET COUNT (AUTO) 90 K/uL (130-400); RED BLOOD CELL COUNT(AUTO) 2.71 MIL/uL (4.50-6.20); RED CELL DISTRIBUTION WIDTH 12.8 % (11.0-15.5); WHITE BLOOD COUNT (AUTO) 19.9 K/uL (4.8-10.8)
[2021-08-07 05:00] LABS: ALBUMIN 1.6 g/dL (3.5-5.0); BILIRUBIN,TOTAL 0.3 mg/dL (0.2-1.0); CREATININE 3.8 mg/dL (0.5-1.5); TOTAL PROTEIN, SERUM 4.6 g/dL (6.0-8.3)
[2021-08-07] MEDS: INSULIN GLARGINE 100 UNITS/ML 10 ML VIAL SQ SCH ×2 (06:10→20:26)
[2021-08-07] MEDS: INSULIN HUMULIN R 100 UNIT/ML 3ML SQ SCH ×4 (06:12→20:25)
[2021-08-07] MEDS: DEXMEDETOMIDINE 400MCG/NS100ML IV SCH ×4 (06:20→21:06)
[2021-08-07] MEDS: METOPROLOL TARTRATE 25 MG TAB PO SCH ×2 (09:00→21:00)
[2021-08-07] MEDS: NOREPINEPHRIN 4MG/NS 250ML 250 ML IV SCH (11:14)
[2021-08-07] MEDS: APIXABAN 5 MG TABLET PO SCH ×2 (12:29→20:27)
[2021-08-07] MEDS: MEROPENEM 1 GM VIAL IVP SCH (12:29)
[2021-08-07] MEDS: PANTOPRAZOLE 40 MG/VIAL IVP SCH ×2 (12:29→20:27)
[2021-08-07] MEDS: BUSPIRONE HCL 5 MG TABLET PO SCH ×2 (12:30→20:28)
[2021-08-07] MEDS: METHYLPREDNISOLONE SUCC IVP SCH (13:00)
[2021-08-07] MEDS: [UNRECOGNIZED DRUG - OTHER] IVP SCH (13:00)
[2021-08-08] VITALS (35 sets, daily range): BP systolic 90–174; BP diastolic 56–93
[2021-08-08] MEDS: DEXMEDETOMIDINE 400MCG/NS100ML IV SCH ×7 (00:23→23:26)
[2021-08-08 04:02] LABS: HEMATOCRIT 22.6 % (42-54); MEAN CORPUSCULAR HEMOGLOBIN 27.7 pg (27.0-33.0); MEAN CORPUSCULAR HGB CONC 33.6 g/dL (32.0-36.0); MEAN CORPUSCULAR VOLUME 82.5 fL (79-99); RED BLOOD CELL COUNT(AUTO) 2.74 MIL/uL (4.50-6.20); WHITE BLOOD COUNT (AUTO) 21.7 K/uL (4.8-10.8)
[2021-08-08 04:19] LABS: ALBUMIN 1.6 g/dL (3.5-5.0); BILIRUBIN,TOTAL 0.3 mg/dL (0.2-1.0); POTASSIUM 4.1 mmol/L (3.5-5.1); TOTAL PROTEIN, SERUM 4.5 g/dL (6.0-8.3)
[2021-08-08] MEDS: INSULIN HUMULIN R 100 UNIT/ML 3ML SQ SCH ×4 (06:32→20:09)
[2021-08-08] MEDS: INSULIN GLARGINE 100 UNITS/ML 10 ML VIAL SQ SCH ×2 (06:33→20:05)
[2021-08-08] MEDS: PANTOPRAZOLE 40 MG/VIAL IVP SCH ×2 (08:46→20:01)
[2021-08-08] MEDS: MEROPENEM 1 GM VIAL IVP SCH (08:46)
[2021-08-08] MEDS: BUSPIRONE HCL 5 MG TABLET PO SCH ×2 (08:47→20:01)
[2021-08-08] MEDS: APIXABAN 5 MG TABLET PO SCH ×2 (08:47→20:02)
[2021-08-08] MEDS: METOPROLOL TARTRATE 25 MG TAB PO SCH ×2 (08:47→20:03)
[2021-08-08] MEDS ORDERED: ALBUMIN (HUMAN) 25% 50 ML IV SCH (11:00)
[2021-08-08] MEDS: DOCUSATE SODIUM 100 MG CAP PO SCH (11:28)
[2021-08-08] MEDS: POLYETHYLENE GLYCOL 3350 17 GM POWD.PACK PO SCH (11:28)
[2021-08-08] MEDS: GUAIFENESIN-DM 200/20 MG 10 ML PO PRN (15:05)
[2021-08-08] MEDS: HEPARIN 5,000 UNIT VIAL SQ PRN (18:59)
[2021-08-08] MEDS: VANCOMYCIN 1G 1.25 GM in 0.9% NACL 250ML 250 ML IVPB SCH (20:05)
[2021-08-08] MEDS: [UNRECOGNIZED DRUG - OTHER] IVP SCH (23:27)
[2021-08-08] MEDS: METHYLPREDNISOLONE SUCC IVP SCH (23:27)
[2021-08-09] VITALS (63 sets, daily range): BP systolic 90–194; BP diastolic 44–163
[2021-08-09] MEDS: DEXMEDETOMIDINE 400MCG/NS100ML IV SCH ×6 (03:20→22:16)
[2021-08-09 03:50] LABS: BASOPHILS % (AUTO) 0.2 % (0.0-5.0); HEMATOCRIT 24.1 % (42-54); LYMPHOCYTES % (AUTO) 0.9 % (21.0-51.0); MEAN CORPUSCULAR HEMOGLOBIN 28.7 pg (27.0-33.0); MEAN CORPUSCULAR HGB CONC 34.4 g/dL (32.0-36.0); MEAN CORPUSCULAR VOLUME 83.4 fL (79-99); MONOCYTES % (AUTO) 3.3 % (3.0-13.0); PLATELET COUNT (AUTO) 123 K/uL (130-400); RED BLOOD CELL COUNT(AUTO) 2.89 MIL/uL (4.50-6.20); RED CELL DISTRIBUTION WIDTH 13.1 % (11.0-15.5); WHITE BLOOD COUNT (AUTO) 27.5 K/uL (4.8-10.8)
[2021-08-09 04:11] LABS: ALBUMIN 1.9 g/dL (3.5-5.0); BILIRUBIN,TOTAL 0.3 mg/dL (0.2-1.0); CREATININE 3.1 mg/dL (0.5-1.5); CRP QUANTITATIVE 2.6 mg/L (0.00-9.0); TOTAL PROTEIN, SERUM 4.7 g/dL (6.0-8.3)
[2021-08-09 07:01] LABS: ABG BASE EXCESS 3.8 mmol/L (-2.0-3.0); ABG HCO3 28.1 mmol/L (21.0-28.0); ABG OXYGEN SATURATION 87.1 % (95.0-99.0); ABG PCO2 42 mmHg (35-48)
[2021-08-09] MEDS: INSULIN HUMULIN R 100 UNIT/ML 3ML SQ SCH ×4 (07:30→23:55)
[2021-08-09] MEDS: MEROPENEM 1 GM VIAL IVP SCH (07:46)
[2021-08-09] MEDS: POLYETHYLENE GLYCOL 3350 17 GM POWD.PACK PO SCH (07:46)
[2021-08-09] MEDS: INSULIN GLARGINE 100 UNITS/ML 10 ML VIAL SQ SCH ×2 (07:46→21:07)
[2021-08-09] MEDS: BUSPIRONE HCL 5 MG TABLET PO SCH ×2 (07:47→21:04)
[2021-08-09] MEDS: APIXABAN 5 MG TABLET PO SCH (07:47)
[2021-08-09] MEDS: METOPROLOL TARTRATE 25 MG TAB PO SCH ×2 (07:47→21:04)
[2021-08-09] MEDS: DOCUSATE SODIUM 100 MG CAP PO SCH (07:47)
[2021-08-09] MEDS: PANTOPRAZOLE 40 MG/VIAL IVP SCH ×2 (07:48→21:08)
[2021-08-09] MEDS ORDERED: FENTANYL CITRATE PF 50 MCG/1 ML 2ML VIAL ONE (10:53)
[2021-08-09] MEDS ORDERED: LORAZEPAM 2 MG/ML 1 ML VIAL ONE (11:29)
[2021-08-09] MEDS: MIDAZOLAM 100MG-0.9% NS 100ML 100ML BAG IV PRN (11:39)
[2021-08-09] MEDS: FENTANYL 2500MCG+NS 250ML IV.SOLN IV SCH (11:41)
[2021-08-09] MEDS: PROPOFOL 1000 MG/100 ML 100 ML IV SCH ×3 (11:42→22:15)
[2021-08-09 12:00] LABS: ABG BASE EXCESS 2.8 mmol/L (-2.0-3.0); ABG HCO3 28.8 mmol/L (21.0-28.0); ABG OXYGEN SATURATION 82.7 % (95.0-99.0); ABG PCO2 53 mmHg (35-48)
[2021-08-09] MEDS ORDERED: PHARMACY COMMUNICATION MISC SCH (12:00)
[2021-08-09] MEDS: NOREPINEPHRIN 4MG/NS 250ML 250 ML IV SCH (14:48)
[2021-08-09] MEDS: CISATRACURIUM BESYLATE 100 MG in 0.9%NACL 100ML 100 ML IVP SCH ×3 (15:36→23:07)
[2021-08-09] MEDS: HEPARIN 5,000 UNIT VIAL SQ SCH (16:39)
[2021-08-09] MEDS: DEXAMETHASONE 4 MG TAB PO SCH (21:05)
[2021-08-10] VITALS (109 sets, daily range): BP systolic 59–227; BP diastolic 29–133
[2021-08-10] MEDS: HEPARIN 5,000 UNIT VIAL SQ SCH ×3 (02:52→12:34)
[2021-08-10] MEDS: INSULIN HUMULIN R 100 UNIT/ML 3ML SQ SCH ×3 (04:11→18:00)
[2021-08-10] MEDS: PROPOFOL 1000 MG/100 ML 100 ML IV SCH ×4 (04:13→17:09)
[2021-08-10] MEDS: FENTANYL 2500MCG+NS 250ML IV.SOLN IV SCH ×2 (04:15→17:19)
[2021-08-10] MEDS: DEXMEDETOMIDINE 400MCG/NS100ML IV SCH ×6 (04:16→21:31)
[2021-08-10] MEDS: MIDAZOLAM 100MG-0.9% NS 100ML 100ML BAG IV PRN (04:17)
[2021-08-10] MEDS: CISATRACURIUM BESYLATE 100 MG in 0.9%NACL 100ML 100 ML IVP SCH ×6 (04:18→21:29)
[2021-08-10] MEDS: INSULIN GLARGINE 100 UNITS/ML 10 ML VIAL SQ SCH ×2 (06:30→20:40)
[2021-08-10 06:43] LABS: BASOPHILS % (AUTO) 0.3 % (0.0-5.0); EOSINOPHILS % (AUTO) 1.3 % (0.0-8.0); HEMATOCRIT 23.5 % (42-54); MEAN CORPUSCULAR HGB CONC 31.5 g/dL (32.0-36.0); MONOCYTES % (AUTO) 2.5 % (3.0-13.0); PLATELET COUNT (AUTO) 147 K/uL (130-400); RED BLOOD CELL COUNT(AUTO) 2.64 MIL/uL (4.50-6.20); RED CELL DISTRIBUTION WIDTH 13.7 % (11.0-15.5)
[2021-08-10 06:46] LABS: WHITE BLOOD COUNT (AUTO) 35.8 K/uL (4.8-10.8)
[2021-08-10 06:55] LABS: ALBUMIN 1.6 g/dL (3.5-5.0); BILIRUBIN,TOTAL 0.3 mg/dL (0.2-1.0); CREATININE 5.2 mg/dL (0.5-1.5); POTASSIUM 3.7 mmol/L (3.5-5.1); TOTAL PROTEIN, SERUM 4.4 g/dL (6.0-8.3)
[2021-08-10] MEDS: POLYETHYLENE GLYCOL 3350 17 GM POWD.PACK PO SCH (07:48)
[2021-08-10] MEDS: MEROPENEM 1 GM VIAL IVP SCH (07:48)
[2021-08-10] MEDS: PANTOPRAZOLE 40 MG/VIAL IVP SCH ×2 (07:48→20:37)
[2021-08-10] MEDS: DEXAMETHASONE 4 MG TAB PO SCH ×2 (07:49→20:38)
[2021-08-10] MEDS: BUSPIRONE HCL 5 MG TABLET PO SCH ×2 (07:49→20:37)
[2021-08-10] MEDS: METOPROLOL TARTRATE 25 MG TAB PO SCH ×2 (07:51→20:40)
[2021-08-10 07:57] LABS: BAND NEUTROPHILS % (MANUAL) 1 % (0-2); EOSINOPHILS % (MANUAL) 3 % (1-6); LYMPHOCYTES % (MANUAL) 4 % (22-44); MAN.DIFF COMMENT-IMPRESSION MANUAL DIFFERENTIAL; MONOCYTES % (MANUAL) 2 % (2-9); PLATELET MORPHOLOGY COMMENT ADEQUATE; SEGMENTED NEUTROPHILS % 90 % (40-70)
[2021-08-10] MEDS ORDERED: 0.9%NACL 1000ML 2,000 ML IV ONE (10:08)
[2021-08-10] MEDS: NOREPINEPHRIN 4MG/NS 250ML 250 ML IV SCH ×2 (13:26→17:36)
[2021-08-10] MEDS ORDERED: DEXTROSE 50%-WATER 50 ML DISP.SYRIN IV ONE ×2 (23:43)
[2021-08-11] VITALS (88 sets, daily range): BP systolic 76–153; BP diastolic 35–86
[2021-08-11] MEDS: HEPARIN 5,000 UNIT VIAL SQ SCH ×4 (00:14→12:39)
[2021-08-11] MEDS: PROPOFOL 1000 MG/100 ML 100 ML IV SCH ×6 (00:15→21:59)
[2021-08-11] MEDS: DEXMEDETOMIDINE 400MCG/NS100ML IV SCH ×7 (01:18→21:56)
[2021-08-11] MEDS: MIDAZOLAM 100MG-0.9% NS 100ML 100ML BAG IV PRN (04:03)
[2021-08-11] MEDS: NOREPINEPHRIN 4MG/NS 250ML 250 ML IV SCH ×3 (04:05→15:09)
[2021-08-11] MEDS: CISATRACURIUM BESYLATE 100 MG in 0.9%NACL 100ML 100 ML IVP SCH ×5 (04:20→19:50)
[2021-08-11] MEDS: INSULIN HUMULIN R 100 UNIT/ML 3ML SQ SCH ×5 (06:00→23:41)
[2021-08-11] MEDS: INSULIN GLARGINE 100 UNITS/ML 10 ML VIAL SQ SCH (06:34)
[2021-08-11] MEDS: FENTANYL 2500MCG+NS 250ML IV.SOLN IV SCH ×2 (06:37→20:45)
[2021-08-11 06:51] LABS: BASOPHILS % (AUTO) 0.1 % (0.0-5.0); EOSINOPHILS % (AUTO) 1.4 % (0.0-8.0); LYMPHOCYTES % (AUTO) 1.9 % (21.0-51.0); MEAN CORPUSCULAR HEMOGLOBIN 28.9 pg (27.0-33.0); MEAN CORPUSCULAR HGB CONC 33.3 g/dL (32.0-36.0); MEAN CORPUSCULAR VOLUME 86.8 fL (79-99); NEUTROPHILS % (AUTO) 90.2 % (40.0-77.0); PLATELET COUNT (AUTO) 101 K/uL (130-400); RED BLOOD CELL COUNT(AUTO) 2.28 MIL/uL (4.50-6.20); RED CELL DISTRIBUTION WIDTH 13.8 % (11.0-15.5); WHITE BLOOD COUNT (AUTO) 25.1 K/uL (4.8-10.8)
[2021-08-11 07:01] LABS: CREATININE 6.2 mg/dL (0.5-1.5); POTASSIUM 4.4 mmol/L (3.5-5.1)
[2021-08-11 07:12] LABS: HEMATOCRIT 19.8 % (42-54)
[2021-08-11] MEDS: PANTOPRAZOLE 40 MG/VIAL IVP SCH ×2 (08:31→21:02)
[2021-08-11] MEDS: MEROPENEM 1 GM VIAL IVP SCH (08:31)
[2021-08-11] MEDS: POLYETHYLENE GLYCOL 3350 17 GM POWD.PACK PO SCH (08:32)
[2021-08-11] MEDS: DEXAMETHASONE 4 MG TAB PO SCH ×2 (08:32→21:02)
[2021-08-11] MEDS: BUSPIRONE HCL 5 MG TABLET PO SCH ×2 (08:32→21:00)
[2021-08-11] MEDS: ERGOCALCIFEROL (VITAMIN D2) 50,000 UNIT CAPSULE PO SCH (08:32)
[2021-08-11] MEDS: METOPROLOL TARTRATE 25 MG TAB PO SCH ×2 (08:34→21:00)
[2021-08-11] MEDS ORDERED: BUMETANIDE 1MG/4ML VIAL IV ONE (15:30)
[2021-08-11] MEDS: LACTULOSE 20 GM/30 ML UDCUP PO SCH (15:43)
[2021-08-11 20:42] LABS: HEMATOCRIT 23.7 % (42-54)
[2021-08-11] MEDS: METOCLOPRAMIDE 5 MG TABLET PO SCH (21:59)
[2021-08-12] VITALS (71 sets, daily range): BP systolic 86–156; BP diastolic 35–82
[2021-08-12] MEDS: INSULIN HUMULIN R 100 UNIT/ML 3ML SQ SCH ×3 (05:52→17:49)
[2021-08-12] MEDS: METOCLOPRAMIDE 5 MG TABLET PO SCH ×3 (05:52→20:45)
[2021-08-12 06:45] LABS: HEMATOCRIT 21.7 % (42-54); MEAN CORPUSCULAR HEMOGLOBIN 29.2 pg (27.0-33.0); MEAN CORPUSCULAR HGB CONC 33.6 g/dL (32.0-36.0); MEAN CORPUSCULAR VOLUME 86.8 fL (79-99); RED BLOOD CELL COUNT(AUTO) 2.5 MIL/uL (4.50-6.20); RED CELL DISTRIBUTION WIDTH 13.6 % (11.0-15.5); WHITE BLOOD COUNT (AUTO) 27.5 K/uL (4.8-10.8)
[2021-08-12 06:57] LABS: ALBUMIN 1.2 g/dL (3.5-5.0); BILIRUBIN,TOTAL 0.4 mg/dL (0.2-1.0); POTASSIUM 4.3 mmol/L (3.5-5.1); TOTAL PROTEIN, SERUM 4.1 g/dL (6.0-8.3)
[2021-08-12] MEDS: CISATRACURIUM BESYLATE 100 MG in 0.9%NACL 100ML 100 ML IVP SCH ×4 (07:08→17:57)
[2021-08-12] MEDS: DEXMEDETOMIDINE 400MCG/NS100ML IV SCH ×4 (07:08→17:11)
[2021-08-12] MEDS: METOPROLOL TARTRATE 25 MG TAB PO SCH ×2 (07:34→20:42)
[2021-08-12] MEDS: DEXAMETHASONE 4 MG TAB PO SCH ×2 (08:10→20:41)
[2021-08-12] MEDS: PANTOPRAZOLE 40 MG/VIAL IVP SCH ×2 (08:10→20:41)
[2021-08-12] MEDS: BUSPIRONE HCL 5 MG TABLET PO SCH ×2 (08:10→20:41)
[2021-08-12] MEDS: LACTULOSE 20 GM/30 ML UDCUP PO SCH (08:10)
[2021-08-12] MEDS: MEROPENEM 1 GM VIAL IVP SCH (08:10)
[2021-08-12] MEDS: HEPARIN 5,000 UNIT VIAL SQ SCH ×3 (08:11→20:47)
[2021-08-12] MEDS: PROPOFOL 1000 MG/100 ML 100 ML IV SCH ×3 (08:45→20:39)
[2021-08-12] MEDS ORDERED: BUMETANIDE 1MG/4ML VIAL IVP SCH (09:00)
[2021-08-12] MEDS ORDERED: 0.9%NACL 1000ML 2,000 ML IV ONE (09:29)
[2021-08-12] MEDS: HEPARIN 5,000 UNIT VIAL SQ PRN (12:25)
[2021-08-12] MEDS: FENTANYL 2500MCG+NS 250ML IV.SOLN IV SCH (17:57)
[2021-08-13] VITALS (70 sets, daily range): BP systolic 96–210; BP diastolic 43–115
[2021-08-13] MEDS: DEXMEDETOMIDINE 400MCG/NS100ML IV SCH ×4 (03:49→21:03)
[2021-08-13] MEDS: PROPOFOL 1000 MG/100 ML 100 ML IV SCH ×4 (03:52→22:35)
[2021-08-13] MEDS: FENTANYL 2500MCG+NS 250ML IV.SOLN IV SCH ×2 (03:54→07:50)
[2021-08-13] MEDS: CISATRACURIUM BESYLATE 100 MG in 0.9%NACL 100ML 100 ML IVP SCH (03:58)
[2021-08-13] MEDS: MIDAZOLAM 100MG-0.9% NS 100ML 100ML BAG IV PRN (03:59)
[2021-08-13] MEDS: INSULIN HUMULIN R 100 UNIT/ML 3ML SQ SCH ×5 (06:00→23:19)
[2021-08-13 06:29] LABS: BASOPHILS % (AUTO) 0.1 % (0.0-5.0); EOSINOPHILS % (AUTO) 0.3 % (0.0-8.0); HEMATOCRIT 26.1 % (42-54); LYMPHOCYTES % (AUTO) 1.1 % (21.0-51.0); MEAN CORPUSCULAR HEMOGLOBIN 29.7 pg (27.0-33.0); MEAN CORPUSCULAR HGB CONC 34.1 g/dL (32.0-36.0); MONOCYTES % (AUTO) 4.6 % (3.0-13.0); NEUTROPHILS % (AUTO) 90.6 % (40.0-77.0); PLATELET COUNT (AUTO) 135 K/uL (130-400); RED CELL DISTRIBUTION WIDTH 14.3 % (11.0-15.5)
[2021-08-13 06:30] LABS: WHITE BLOOD COUNT (AUTO) 30.6 K/uL (4.8-10.8)
[2021-08-13 06:51] LABS: ALBUMIN 1.6 g/dL (3.5-5.0); BILIRUBIN,TOTAL 0.4 mg/dL (0.2-1.0); CREATININE 6.6 mg/dL (0.5-1.5); POTASSIUM 4.2 mmol/L (3.5-5.1); TOTAL PROTEIN, SERUM 5.3 g/dL (6.0-8.3)
[2021-08-13] MEDS: METOPROLOL TARTRATE 25 MG TAB PO SCH ×2 (07:17→20:34)
[2021-08-13 07:28] LABS: BAND NEUTROPHILS % (MANUAL) 1 % (0-2); LYMPHOCYTES % (MANUAL) 1 % (22-44); MAN.DIFF COMMENT-IMPRESSION MANUAL DIFFERENTIAL; MONOCYTES % (MANUAL) 1 % (2-9); PLATELET MORPHOLOGY COMMENT ADEQUATE; SEGMENTED NEUTROPHILS % 97 % (40-70)
[2021-08-13] MEDS: METOCLOPRAMIDE 5 MG TABLET PO SCH ×3 (07:30→20:33)
[2021-08-13] MEDS: HEPARIN 5,000 UNIT VIAL SQ SCH ×3 (07:35→20:31)
[2021-08-13] MEDS: DEXAMETHASONE 4 MG TAB PO SCH ×2 (07:48→20:33)
[2021-08-13] MEDS: BUSPIRONE HCL 5 MG TABLET PO SCH ×2 (07:48→20:34)
[2021-08-13] MEDS: PANTOPRAZOLE 40 MG/VIAL IVP SCH ×2 (07:49→20:29)
[2021-08-13] MEDS: MEROPENEM 1 GM VIAL IVP SCH (07:49)
[2021-08-13] MEDS: HEPARIN 5,000 UNIT VIAL SQ PRN (11:51)
[2021-08-14] VITALS (59 sets, daily range): BP systolic 87–160; BP diastolic 39–96
[2021-08-14] MEDS: NOREPINEPHRIN 4MG/NS 250ML 250 ML IV SCH ×2 (00:32→18:37)
[2021-08-14] MEDS: MIDAZOLAM 100MG-0.9% NS 100ML 100ML BAG IV PRN ×2 (00:33→18:36)
[2021-08-14] MEDS: FENTANYL 2500MCG+NS 250ML IV.SOLN IV SCH ×2 (01:40→11:28)
[2021-08-14] MEDS: DEXMEDETOMIDINE 400MCG/NS100ML IV SCH ×3 (04:52→12:48)
[2021-08-14] MEDS: PROPOFOL 1000 MG/100 ML 100 ML IV SCH ×4 (04:52→18:06)
[2021-08-14 04:54] LABS: ABG BASE EXCESS -1.9 mmol/L (-2.0-3.0); ABG HCO3 25.6 mmol/L (21.0-28.0); ABG OXYGEN SATURATION 91.5 % (95.0-99.0); ABG PCO2 55 mmHg (35-48)
[2021-08-14 05:29] LABS: BASOPHILS % (AUTO) 0.1 % (0.0-5.0); EOSINOPHILS % (AUTO) 0.6 % (0.0-8.0); HEMATOCRIT 23.2 % (42-54); LYMPHOCYTES % (AUTO) 1.2 % (21.0-51.0); MEAN CORPUSCULAR HEMOGLOBIN 28.9 pg (27.0-33.0); MEAN CORPUSCULAR HGB CONC 32.8 g/dL (32.0-36.0); MEAN CORPUSCULAR VOLUME 88.2 fL (79-99); MONOCYTES % (AUTO) 4.9 % (3.0-13.0); NEUTROPHILS % (AUTO) 90.6 % (40.0-77.0); PLATELET COUNT (AUTO) 149 K/uL (130-400); RED BLOOD CELL COUNT(AUTO) 2.63 MIL/uL (4.50-6.20); RED CELL DISTRIBUTION WIDTH 14.5 % (11.0-15.5); WHITE BLOOD COUNT (AUTO) 28.4 K/uL (4.8-10.8)
[2021-08-14] MEDS: INSULIN HUMULIN R 100 UNIT/ML 3ML SQ SCH ×4 (05:42→23:53)
[2021-08-14 06:05] LABS: ALBUMIN 1.4 g/dL (3.5-5.0); BILIRUBIN,TOTAL 0.3 mg/dL (0.2-1.0); POTASSIUM 4.1 mmol/L (3.5-5.1); TOTAL PROTEIN, SERUM 4.9 g/dL (6.0-8.3)
[2021-08-14] MEDS: HEPARIN 5,000 UNIT VIAL SQ SCH ×3 (06:06→20:22)
[2021-08-14] MEDS: METOCLOPRAMIDE 5 MG TABLET PO SCH ×3 (06:07→20:21)
[2021-08-14] MEDS: METOPROLOL TARTRATE 25 MG TAB PO SCH (07:19)
[2021-08-14] MEDS: DEXAMETHASONE 4 MG TAB PO SCH ×2 (07:55→20:21)
[2021-08-14] MEDS: BUSPIRONE HCL 5 MG TABLET PO SCH ×2 (07:55→20:21)
[2021-08-14] MEDS: PANTOPRAZOLE 40 MG/VIAL IVP SCH ×2 (07:55→20:21)
[2021-08-14] MEDS: MEROPENEM 1 GM VIAL IVP SCH (07:55)
[2021-08-14] MEDS ORDERED: 0.9%NACL 1000ML 2,000 ML IV ONE (09:40)
[2021-08-14] MEDS ORDERED: FENTANYL CITRATE PF 0.05 MG/ML 2,500 MCG in 0.9% NACL 250ML 200 ML IV PRN (12:00)
[2021-08-14] MEDS: HEPARIN 5,000 UNIT VIAL SQ PRN (12:30)
[2021-08-14] MEDS: FENTANYL 2500MCG+NS 250ML 250 ML IV SCH (12:49)
[2021-08-14] MEDS: CISATRACURIUM BESYLATE 100 MG in 0.9%NACL 100ML 100 ML IVP SCH ×2 (12:58→18:34)
[2021-08-14] MEDS ORDERED: SENNOSIDES 8.6 MG TABLET PO PRN (16:00)
[2021-08-14] MEDS: INSULIN GLARGINE 100 UNITS/ML 10 ML VIAL SQ SCH (20:25)
[2021-08-14] MEDS ORDERED: DOCUSATE NA 100MG/10ML UDCUP PO SCH (22:00)
[2021-08-15] VITALS (62 sets, daily range): BP systolic 88–187; BP diastolic 39–98
[2021-08-15] MEDS: DEXMEDETOMIDINE 400MCG/NS100ML IV SCH ×4 (00:01→15:58)
[2021-08-15] MEDS: PROPOFOL 1000 MG/100 ML 100 ML IV SCH ×5 (00:02→21:55)
[2021-08-15] MEDS: FENTANYL 2500MCG+NS 250ML 250 ML IV SCH ×2 (02:49→15:58)
[2021-08-15 03:28] LABS: ABG BASE EXCESS -8.4 mmol/L (-2.0-3.0); ABG HCO3 21.6 mmol/L (21.0-28.0); ABG OXYGEN SATURATION 81.4 % (95.0-99.0); ABG PCO2 64 mmHg (35-48)
[2021-08-15 03:34] LABS: ABG BASE EXCESS -9.5 mmol/L (-2.0-3.0); ABG HCO3 20.2 mmol/L (21.0-28.0); ABG OXYGEN SATURATION 81.1 % (95.0-99.0); ABG PCO2 60 mmHg (35-48)
[2021-08-15 04:06] LABS: BASOPHILS % (AUTO) 0.3 % (0.0-5.0); EOSINOPHILS % (AUTO) 0.1 % (0.0-8.0); HEMATOCRIT 27.3 % (42-54); LYMPHOCYTES % (AUTO) 0.6 % (21.0-51.0); MEAN CORPUSCULAR HGB CONC 32.6 g/dL (32.0-36.0); MEAN CORPUSCULAR VOLUME 88.9 fL (79-99); MONOCYTES % (AUTO) 3.6 % (3.0-13.0); NEUTROPHILS % (AUTO) 91.3 % (40.0-77.0); PLATELET COUNT (AUTO) 176 K/uL (130-400); RED BLOOD CELL COUNT(AUTO) 3.07 MIL/uL (4.50-6.20); RED CELL DISTRIBUTION WIDTH 14.5 % (11.0-15.5)
[2021-08-15 04:22] LABS: ALBUMIN 1.4 g/dL (3.5-5.0); BILIRUBIN,TOTAL 0.4 mg/dL (0.2-1.0); CREATININE 5.6 mg/dL (0.5-1.5); POTASSIUM 4.4 mmol/L (3.5-5.1); TOTAL PROTEIN, SERUM 5.1 g/dL (6.0-8.3)
[2021-08-15 04:48] LABS: WHITE BLOOD COUNT (AUTO) 35.7 K/uL (4.8-10.8)
[2021-08-15] MEDS: HEPARIN 5,000 UNIT VIAL SQ SCH ×2 (05:56→13:20)
[2021-08-15] MEDS: METOCLOPRAMIDE 5 MG TABLET PO SCH ×3 (05:56→20:21)
[2021-08-15] MEDS: INSULIN HUMULIN R 100 UNIT/ML 3ML SQ SCH ×4 (05:58→23:28)
[2021-08-15 06:24] LABS: BAND NEUTROPHILS % (MANUAL) 11 % (0-2); LYMPHOCYTES % (MANUAL) 1 % (22-44); MAN.DIFF COMMENT-IMPRESSION MANUAL DIFFERENTIAL; METAMYELOCYTES % 4 % (0-0); MONOCYTES % (MANUAL) 5 % (2-9); MYELOCYTES % 2 % (0-0); SEGMENTED NEUTROPHILS % 77 % (40-70)
[2021-08-15 06:25] LABS: PLATELET MORPHOLOGY COMMENT ADEQUATE
[2021-08-15] MEDS: BUSPIRONE HCL 5 MG TABLET PO SCH (07:53)
[2021-08-15] MEDS: DEXAMETHASONE 4 MG TAB PO SCH (07:53)
[2021-08-15] MEDS: MEROPENEM 1 GM VIAL IVP SCH (07:53)
[2021-08-15] MEDS: PANTOPRAZOLE 40 MG/VIAL IVP SCH ×2 (07:53→20:35)
[2021-08-15] MEDS: INSULIN GLARGINE 100 UNITS/ML 10 ML VIAL SQ SCH ×2 (07:54→20:21)
[2021-08-15] MEDS: NOREPINEPHRIN 4MG/NS 250ML 250 ML IV SCH ×2 (08:16→15:17)
[2021-08-15] MEDS: MIDAZOLAM 100MG-0.9% NS 100ML 50 ML IV PRN (15:57)
[2021-08-15] MEDS: CISATRACURIUM BESYLATE 100 MG in 0.9%NACL 100ML 100 ML IVP SCH (16:00)
[2021-08-15] MEDS: APIXABAN 2.5 MG TABLET PO SCH (20:21)
[2021-08-15] MEDS ORDERED: PANTOPRAZOLE 40 MG/VIAL ONE (20:27)
[2021-08-15] MEDS ORDERED: SENNOSIDES 8.6 MG TABLET PO SCH (21:00)
[2021-08-16] VITALS (74 sets, daily range): BP systolic 70–159; BP diastolic 30–87
[2021-08-16] MEDS: DEXMEDETOMIDINE 400MCG/NS100ML IV SCH ×4 (00:31→18:09)
[2021-08-16 05:58] LABS: HEMATOCRIT 23.4 % (42-54); MEAN CORPUSCULAR HEMOGLOBIN 28.8 pg (27.0-33.0); MEAN CORPUSCULAR HGB CONC 32.9 g/dL (32.0-36.0); MEAN CORPUSCULAR VOLUME 87.6 fL (79-99); PLATELET COUNT (AUTO) 144 K/uL (130-400); RED BLOOD CELL COUNT(AUTO) 2.67 MIL/uL (4.50-6.20); RED CELL DISTRIBUTION WIDTH 14.8 % (11.0-15.5)
[2021-08-16 06:07] LABS: WHITE BLOOD COUNT (AUTO) 35.4 K/uL (4.8-10.8)
[2021-08-16 06:08] LABS: POTASSIUM 3.8 mmol/L (3.5-5.1)
[2021-08-16] MEDS: METOCLOPRAMIDE 5 MG TABLET PO SCH ×3 (06:33→20:45)
[2021-08-16] MEDS: INSULIN HUMULIN R 100 UNIT/ML 3ML SQ SCH ×4 (06:34→23:17)
[2021-08-16] MEDS: NOREPINEPHRIN 4MG/NS 250ML 250 ML IV SCH ×2 (07:18→22:00)
[2021-08-16] MEDS: MEROPENEM 1 GM VIAL IVP SCH (08:14)
[2021-08-16] MEDS: APIXABAN 2.5 MG TABLET PO SCH ×2 (08:15→20:44)
[2021-08-16] MEDS: DEXAMETHASONE 4 MG TAB PO SCH (08:15)
[2021-08-16] MEDS: INSULIN GLARGINE 100 UNITS/ML 10 ML VIAL SQ SCH ×2 (08:16→21:00)
[2021-08-16] MEDS: FENTANYL 2500MCG+NS 250ML 250 ML IV SCH (08:17)
[2021-08-16 08:25] LABS: LYMPHOCYTES % (MANUAL) 2 % (22-44); MAN.DIFF COMMENT-IMPRESSION MANUAL DIFFERENTIAL; MONOCYTES % (MANUAL) 3 % (2-9); SEGMENTED NEUTROPHILS % 95 % (40-70)
[2021-08-16 08:26] LABS: PLATELET MORPHOLOGY COMMENT ADEQUATE
[2021-08-16] MEDS: PROPOFOL 1000 MG/100 ML 100 ML IV SCH ×3 (09:12→21:00)
[2021-08-16] MEDS: MIDAZOLAM 100MG-0.9% NS 100ML 50 ML IV PRN (18:08)
[2021-08-16] MEDS: PANTOPRAZOLE 40 MG/VIAL IVP SCH (20:44)
[2021-08-17] VITALS (58 sets, daily range): BP systolic 65–154; BP diastolic 28–85
[2021-08-17] MEDS: PROPOFOL 1000 MG/100 ML 100 ML IV SCH ×5 (01:00→22:00)
[2021-08-17] MEDS: DEXMEDETOMIDINE 400MCG/NS100ML IV SCH ×5 (01:30→22:00)
[2021-08-17] MEDS: FENTANYL 2500MCG+NS 250ML 250 ML IV SCH ×2 (03:00→15:13)
[2021-08-17] MEDS: METOCLOPRAMIDE 5 MG TABLET PO SCH ×3 (05:36→21:08)
[2021-08-17 05:37] LABS: BASOPHILS % (AUTO) 0.3 % (0.0-5.0); EOSINOPHILS % (AUTO) 0.3 % (0.0-8.0); HEMATOCRIT 23.8 % (42-54); LYMPHOCYTES % (AUTO) 1.2 % (21.0-51.0); MEAN CORPUSCULAR HEMOGLOBIN 29.7 pg (27.0-33.0); MEAN CORPUSCULAR HGB CONC 33.6 g/dL (32.0-36.0); MEAN CORPUSCULAR VOLUME 88.5 fL (79-99); MONOCYTES % (AUTO) 3.3 % (3.0-13.0); NEUTROPHILS % (AUTO) 90.8 % (40.0-77.0); NUCLEATED RED BLOOD CELLS 0.1 % (0.0-0.19); PLATELET COUNT (AUTO) 162 K/uL (130-400); RED BLOOD CELL COUNT(AUTO) 2.69 MIL/uL (4.50-6.20); RED CELL DISTRIBUTION WIDTH 15.4 % (11.0-15.5)
[2021-08-17] MEDS: INSULIN HUMULIN R 100 UNIT/ML 3ML SQ SCH ×4 (05:37→23:57)
[2021-08-17 05:57] LABS: ALBUMIN 1.1 g/dL (3.5-5.0); BILIRUBIN,TOTAL 0.3 mg/dL (0.2-1.0); CREATININE 4.8 mg/dL (0.5-1.5); POTASSIUM 3.9 mmol/L (3.5-5.1); WHITE BLOOD COUNT (AUTO) 35.9 K/uL (4.8-10.8)
[2021-08-17] MEDS: INSULIN GLARGINE 100 UNITS/ML 10 ML VIAL SQ SCH ×2 (06:32→21:07)
[2021-08-17] MEDS: APIXABAN 2.5 MG TABLET PO SCH ×2 (08:57→21:07)
[2021-08-17] MEDS: DEXAMETHASONE 4 MG TAB PO SCH (08:57)
[2021-08-17] MEDS: MEROPENEM 1 GM VIAL IVP SCH (08:57)
[2021-08-17] MEDS: MIDAZOLAM 100MG-0.9% NS 100ML 50 ML IV PRN (15:13)
[2021-08-17] MEDS: NOREPINEPHRIN 4MG/NS 250ML 250 ML IV SCH (16:42)
[2021-08-17] MEDS: PANTOPRAZOLE 40 MG/VIAL IVP SCH (21:08)
[2021-08-18] VITALS (83 sets, daily range): BP systolic 77–206; BP diastolic 38–122
[2021-08-18] MEDS: DEXMEDETOMIDINE 400MCG/NS100ML IV SCH ×4 (03:00→23:01)
[2021-08-18 03:45] LABS: ABG BASE EXCESS -7.1 mmol/L (-2.0-3.0); ABG HCO3 20.9 mmol/L (21.0-28.0); ABG OXYGEN SATURATION 91.2 % (95.0-99.0); ABG PCO2 55 mmHg (35-48)
[2021-08-18] MEDS: PROPOFOL 1000 MG/100 ML 100 ML IV SCH ×4 (05:00→23:04)
[2021-08-18] MEDS: METOCLOPRAMIDE 5 MG TABLET PO SCH ×4 (05:20→22:49)
[2021-08-18 05:41] LABS: BASOPHILS % (AUTO) 0.3 % (0.0-5.0); EOSINOPHILS % (AUTO) 0.7 % (0.0-8.0); LYMPHOCYTES % (AUTO) 1.4 % (21.0-51.0); MEAN CORPUSCULAR HEMOGLOBIN 28.4 pg (27.0-33.0); MEAN CORPUSCULAR HGB CONC 32.8 g/dL (32.0-36.0); MEAN CORPUSCULAR VOLUME 86.5 fL (79-99); MONOCYTES % (AUTO) 2.9 % (3.0-13.0); NEUTROPHILS % (AUTO) 87.9 % (40.0-77.0); NUCLEATED RED BLOOD CELLS 0.3 % (0.0-0.19); PLATELET COUNT (AUTO) 172 K/uL (130-400); RED BLOOD CELL COUNT(AUTO) 2.89 MIL/uL (4.50-6.20); WHITE BLOOD COUNT (AUTO) 28.6 K/uL (4.8-10.8)
[2021-08-18] MEDS: NOREPINEPHRIN 4MG/NS 250ML 250 ML IV SCH ×5 (06:00→22:59)
[2021-08-18 06:16] LABS: ALBUMIN 1.2 g/dL (3.5-5.0); BILIRUBIN,TOTAL 0.4 mg/dL (0.2-1.0); CREATININE 5.2 mg/dL (0.5-1.5); POTASSIUM 3.9 mmol/L (3.5-5.1)
[2021-08-18] MEDS: INSULIN HUMULIN R 100 UNIT/ML 3ML SQ SCH ×3 (06:17→17:07)
[2021-08-18] MEDS: MIDAZOLAM 100MG-0.9% NS 100ML 50 ML IV PRN ×2 (06:28→18:42)
[2021-08-18] MEDS: INSULIN GLARGINE 100 UNITS/ML 10 ML VIAL SQ SCH ×2 (06:51→22:46)
[2021-08-18] MEDS: APIXABAN 2.5 MG TABLET PO SCH ×2 (08:06→20:36)
[2021-08-18] MEDS: MEROPENEM 1 GM VIAL IVP SCH (08:06)
[2021-08-18] MEDS: ERGOCALCIFEROL (VITAMIN D2) 50,000 UNIT CAPSULE PO SCH (08:06)
[2021-08-18] MEDS: DEXAMETHASONE 4 MG TAB PO SCH (08:07)
[2021-08-18] MEDS: FENTANYL 2500MCG+NS 250ML 250 ML IV SCH ×2 (08:08→20:00)
[2021-08-18] MEDS: ARTIFICIAL TEARS 3.5 GM OINTMENT OU SCH ×2 (09:00→20:51)
[2021-08-18 22:23] LABS: ABG BASE EXCESS -3.8 mmol/L (-2.0-3.0); ABG HCO3 24.5 mmol/L (21.0-28.0); ABG OXYGEN SATURATION 85.9 % (95.0-99.0); ABG PCO2 63 mmHg (35-48)
[2021-08-18] MEDS: PANTOPRAZOLE 40 MG/VIAL IVP SCH (22:48)
[2021-08-18] MEDS: CISATRACURIUM BESYLATE 100 MG in 0.9%NACL 100ML 100 ML IVP SCH (23:02)
[2021-08-19] VITALS (86 sets, daily range): BP systolic 57–195; BP diastolic 36–114
[2021-08-19] MEDS: DEXMEDETOMIDINE 400MCG/NS100ML IV SCH (01:00)
[2021-08-19] MEDS: MIDAZOLAM 100MG-0.9% NS 100ML 50 ML IV PRN (01:00)
[2021-08-19] MEDS: NOREPINEPHRIN 4MG/NS 250ML 250 ML IV SCH (02:00)
[2021-08-19 04:34] LABS: ABG BASE EXCESS -11.4 mmol/L (-2.0-3.0); ABG HCO3 19.6 mmol/L (21.0-28.0); ABG OXYGEN SATURATION 88.2 % (95.0-99.0); ABG PCO2 66 mmHg (35-48)
[2021-08-19 05:48] LABS: BASOPHILS % (AUTO) 0.1 % (0.0-5.0); EOSINOPHILS % (AUTO) 2.2 % (0.0-8.0); HEMATOCRIT 25.3 % (42-54); LYMPHOCYTES % (AUTO) 3.2 % (21.0-51.0); MEAN CORPUSCULAR HEMOGLOBIN 28.5 pg (27.0-33.0); MEAN CORPUSCULAR HGB CONC 31.6 g/dL (32.0-36.0); MONOCYTES % (AUTO) 6.9 % (3.0-13.0); NEUTROPHILS % (AUTO) 75.7 % (40.0-77.0); PLATELET COUNT (AUTO) 205 K/uL (130-400); RED BLOOD CELL COUNT(AUTO) 2.81 MIL/uL (4.50-6.20); RED CELL DISTRIBUTION WIDTH 15.8 % (11.0-15.5)
[2021-08-19 05:50] LABS: WHITE BLOOD COUNT (AUTO) 33.1 K/uL (4.8-10.8)
[2021-08-19] MEDS: INSULIN HUMULIN R 100 UNIT/ML 3ML SQ SCH ×4 (06:00→18:00)
[2021-08-19] MEDS: PROPOFOL 1000 MG/100 ML 100 ML IV SCH ×2 (06:05)
[2021-08-19 06:21] LABS: ALBUMIN 1.3 g/dL (3.5-5.0); BILIRUBIN,TOTAL 0.3 mg/dL (0.2-1.0); CREATININE 3.8 mg/dL (0.5-1.5); POTASSIUM 3.6 mmol/L (3.5-5.1); TOTAL PROTEIN, SERUM 5.3 g/dL (6.0-8.3)
[2021-08-19] MEDS: INSULIN GLARGINE 100 UNITS/ML 10 ML VIAL SQ SCH ×2 (06:58→21:43)
[2021-08-19] MEDS ORDERED: SODIUM BICARB 50MEQ 50ML VIAL 50 ML ONE (08:11)
[2021-08-19] MEDS ORDERED: ROCURONIUM BROMIDE 10MG/1ML 5ML VL ONE (08:11)
[2021-08-19] MEDS ORDERED: ALBUTEROL 0.083% 2.5 MG/3 ML INH IH ONE (08:26)
[2021-08-19] MEDS ORDERED: NOREPINEPHRINE 16MG/NS 250ML PREMIX IV SCH (08:30)
[2021-08-19] MEDS ORDERED: PHARMACY COMMUNICATION MISC SCH ×2 (08:30→10:00)
[2021-08-19] MEDS: MEROPENEM 1 GM VIAL IVP SCH (08:52)
[2021-08-19] MEDS ORDERED: NOREPINEPHRINE 16MG/NS 250ML 250 ML IV SCH (09:00)
[2021-08-19] MEDS: DEXAMETHASONE 4 MG TAB PO SCH (09:00)
[2021-08-19] MEDS ORDERED: VANCOMYCIN 1G VIAL IVPB SCH (09:30)
[2021-08-19] MEDS ORDERED: LEVOFLOXACIN 500 MG/D5W 100 ML 100 ML IV SCH (09:30)
[2021-08-19] MEDS ORDERED: ALBUMIN (HUMAN) 5% 250 ML IV SCH ×2 (09:30→15:30)
[2021-08-19] MEDS: HYDROCORTISONE SOD SUCCINATE 100 MG/2 ML VIAL IV SCH ×3 (10:34→18:01)
[2021-08-19] MEDS: APIXABAN 2.5 MG TABLET PO SCH ×2 (10:34→21:41)
[2021-08-19] MEDS: ARTIFICIAL TEARS 3.5 GM OINTMENT OU SCH ×2 (10:34→21:41)
[2021-08-19] MEDS: PHENYLEPHRINE HCL 100 MG in 0.9% NACL 250ML 250 ML IV SCH (10:59)
[2021-08-19] MEDS: IPRATROPIUM/ALBUTEROL SULFATE 3 ML SOLUTION IH SCH ×4 (11:48→22:13)
[2021-08-19] MEDS: FLUCONAZOLE 200 MG/NS 100 ML 100 ML IV SCH (12:30)
[2021-08-19 14:16] LABS: ABG BASE EXCESS -5.7 mmol/L (-2.0-3.0); ABG HCO3 23.6 mmol/L (21.0-28.0); ABG OXYGEN SATURATION 92.6 % (95.0-99.0); ABG PCO2 72 mmHg (35-48)
[2021-08-19] MEDS ORDERED: 0.9%NACL 1000ML 2,000 ML IV ONE (17:39)
[2021-08-19] MEDS: FENTANYL 2500MCG+NS 250ML IV.SOLN IV SCH (21:00)
[2021-08-19] MEDS: PANTOPRAZOLE 40 MG/VIAL IVP SCH (21:42)
[2021-08-20] VITALS (134 sets, daily range): BP systolic 52–200; BP diastolic 22–133
[2021-08-20] MEDS: IPRATROPIUM/ALBUTEROL SULFATE 3 ML SOLUTION IH SCH ×5 (02:19→22:00)
[2021-08-20 04:48] LABS: ABG BASE EXCESS -6.6 mmol/L (-2.0-3.0); ABG HCO3 24.1 mmol/L (21.0-28.0); ABG OXYGEN SATURATION 82.4 % (95.0-99.0); ABG PCO2 78 mmHg (35-48)
[2021-08-20] MEDS: INSULIN HUMULIN R 100 UNIT/ML 3ML SQ SCH ×4 (06:00→18:00)
[2021-08-20] MEDS ORDERED: PHARMACY COMMUNICATION MISC SCH (06:30)
[2021-08-20] MEDS: INSULIN GLARGINE 100 UNITS/ML 10 ML VIAL SQ SCH ×2 (06:40→20:32)
[2021-08-20] MEDS: HYDROCORTISONE SOD SUCCINATE 100 MG/2 ML VIAL IV SCH ×3 (06:52→12:00)
[2021-08-20] MEDS: FENTANYL 2500MCG+NS 250ML IV.SOLN IV SCH ×2 (06:52→18:35)
[2021-08-20 07:08] LABS: BASOPHILS % (AUTO) 0.2 % (0.0-5.0); EOSINOPHILS % (AUTO) 0.2 % (0.0-8.0); LYMPHOCYTES % (AUTO) 1.7 % (21.0-51.0); MEAN CORPUSCULAR HEMOGLOBIN 28.2 pg (27.0-33.0); MEAN CORPUSCULAR HGB CONC 30.8 g/dL (32.0-36.0); MEAN CORPUSCULAR VOLUME 91.4 fL (79-99); MONOCYTES % (AUTO) 5.6 % (3.0-13.0); NEUTROPHILS % (AUTO) 83.6 % (40.0-77.0); NUCLEATED RED BLOOD CELLS 2.5 % (0.0-0.19); PLATELET COUNT (AUTO) 151 K/uL (130-400); RED CELL DISTRIBUTION WIDTH 16.3 % (11.0-15.5); WHITE BLOOD COUNT (AUTO) 20.3 K/uL (4.8-10.8)
[2021-08-20 07:28] LABS: ALBUMIN 1.6 g/dL (3.5-5.0); BILIRUBIN,TOTAL 0.3 mg/dL (0.2-1.0); CREATININE 3.2 mg/dL (0.5-1.5); POTASSIUM 3.7 mmol/L (3.5-5.1); TOTAL PROTEIN, SERUM 5.2 g/dL (6.0-8.3)
[2021-08-20 07:31] LABS: HEMATOCRIT 20.1 % (42-54)
[2021-08-20 08:42] LABS: INR 1.15 (0.85-1.15); PROTHROMBIN TIME 12.4 SEC (9.6-11.6)
[2021-08-20] MEDS: APIXABAN 2.5 MG TABLET PO SCH ×2 (09:00→18:09)
[2021-08-20 09:20] LABS: HEMATOCRIT 19.1 % (42-54)
[2021-08-20 09:23] LABS: PARTIAL THROMBOPLASTIN TIME 119.3 SEC (26.3-35.5)
[2021-08-20] MEDS ORDERED: RENAL DOSE IV PRN (09:30)
[2021-08-20] MEDS: ARTIFICIAL TEARS 3.5 GM OINTMENT OU SCH ×2 (10:51→20:32)
[2021-08-20] MEDS: LEVOFLOXACIN 250 MG/D5W 50ML 50 ML IVPB SCH (10:51)
[2021-08-20] MEDS: MEROPENEM 1 GM VIAL IVP SCH (10:51)
[2021-08-20] MEDS: FLUCONAZOLE 200 MG/NS 100 ML 100 ML IV SCH (10:52)
[2021-08-20] MEDS: VANCOMYCIN 1.25GM/NS 250ML IVPB SCH ×2 (10:58)
[2021-08-20 13:32] LABS: ABG BASE EXCESS -5.3 mmol/L (-2.0-3.0); ABG HCO3 23.3 mmol/L (21.0-28.0); ABG OXYGEN SATURATION 97.3 % (95.0-99.0); ABG PCO2 68 mmHg (35-48)
[2021-08-20 13:47] LABS: MEAN CORPUSCULAR HEMOGLOBIN 28.8 pg (27.0-33.0); MEAN CORPUSCULAR HGB CONC 32.1 g/dL (32.0-36.0); MEAN CORPUSCULAR VOLUME 89.5 fL (79-99); NUCLEATED RED BLOOD CELLS 2.4 % (0.0-0.19); RED BLOOD CELL COUNT(AUTO) 2.19 MIL/uL (4.50-6.20); RED CELL DISTRIBUTION WIDTH 16.4 % (11.0-15.5); WHITE BLOOD COUNT (AUTO) 17.4 K/uL (4.8-10.8)
[2021-08-20 13:48] LABS: HEMATOCRIT 19.6 % (42-54)
[2021-08-20 13:57] LABS: CREATININE 3.5 mg/dL (0.5-1.5); POTASSIUM 4.3 mmol/L (3.5-5.1)
[2021-08-20 14:04] LABS: ALBUMIN 1.5 g/dL (3.5-5.0); BILIRUBIN,TOTAL 0.3 mg/dL (0.2-1.0); MAGNESIUM 2.4 mg/dL (1.80-2.40); PHOSPHORUS 7.2 mg/dL (2.5-4.9)
[2021-08-20] MEDS ORDERED: LIDOCAINE PF 100MG/5ML (2%) SYRINGE 5ML ONE (16:47)
[2021-08-20] MEDS ORDERED: LIDOCAINE 2G/250ML 250 ML IV SCH ×2 (17:00)
[2021-08-20] MEDS: HEPARIN 5,000 UNIT VIAL SQ PRN (18:32)
[2021-08-20] MEDS: MIDAZOLAM 100MG-0.9% NS 100ML 50 ML IV PRN (20:00)
[2021-08-20] MEDS: VASOPRESSIN 40 UNITS in 0.9%NACL 50ML 40 ML IV SCH (20:52)
[2021-08-20] MEDS: PANTOPRAZOLE 40 MG/VIAL IVP SCH (20:54)
[2021-08-20] MEDS: CISATRACURIUM BESYLATE 100 MG in 0.9%NACL 100ML 100 ML IVP SCH (23:20)
[2021-08-21] VITALS (96 sets, daily range): BP systolic 77–170; BP diastolic 34–113
[2021-08-21] MEDS ORDERED: DEXTROSE 50%-WATER 50 ML DISP.SYRIN IV ONE (00:28)
[2021-08-21] MEDS: HYDROCORTISONE SOD SUCCINATE 100 MG/2 ML VIAL IV SCH ×4 (00:45→18:30)
[2021-08-21] MEDS: IPRATROPIUM/ALBUTEROL SULFATE 3 ML SOLUTION IH SCH ×4 (02:00→14:18)
[2021-08-21 05:26] LABS: HEMATOCRIT 22.9 % (42-54); MEAN CORPUSCULAR HEMOGLOBIN 29.8 pg (27.0-33.0); MEAN CORPUSCULAR HGB CONC 32.3 g/dL (32.0-36.0); MEAN CORPUSCULAR VOLUME 92.3 fL (79-99); NUCLEATED RED BLOOD CELLS 2.9 % (0.0-0.19); RED BLOOD CELL COUNT(AUTO) 2.48 MIL/uL (4.50-6.20); RED CELL DISTRIBUTION WIDTH 15.9 % (11.0-15.5); WHITE BLOOD COUNT (AUTO) 16.7 K/uL (4.8-10.8)
[2021-08-21 05:39] LABS: CREATININE 2.6 mg/dL (0.5-1.5); POTASSIUM 4.1 mmol/L (3.5-5.1)
[2021-08-21] MEDS: INSULIN HUMULIN R 100 UNIT/ML 3ML SQ SCH ×4 (05:42→18:00)
[2021-08-21] MEDS: INSULIN GLARGINE 100 UNITS/ML 10 ML VIAL SQ SCH ×2 (06:03→20:27)
[2021-08-21] MEDS: MIDAZOLAM 100MG-0.9% NS 100ML 50 ML IV PRN (06:11)
[2021-08-21] MEDS: PHENYLEPHRINE HCL 100 MG in 0.9% NACL 250ML 250 ML IV SCH (06:19)
[2021-08-21 07:08] LABS: ABG HCO3 23.7 mmol/L (21.0-28.0); ABG OXYGEN SATURATION 98.7 % (95.0-99.0); ABG PCO2 51 mmHg (35-48)
[2021-08-21] MEDS: LEVOFLOXACIN 250 MG/D5W 50ML 50 ML IVPB SCH (08:30)
[2021-08-21] MEDS: ARTIFICIAL TEARS 3.5 GM OINTMENT OU SCH ×2 (08:30→20:26)
[2021-08-21 08:55] LABS: INR 1.03 (0.85-1.15); PROTHROMBIN TIME 11.2 SEC (9.6-11.6)
[2021-08-21 08:56] LABS: PARTIAL THROMBOPLASTIN TIME 30.4 SEC (26.3-35.5)
[2021-08-21] MEDS: FLUCONAZOLE 200 MG/NS 100 ML 100 ML IV SCH (09:57)
[2021-08-21] MEDS: APIXABAN 2.5 MG TABLET PO SCH ×2 (09:57→20:26)
[2021-08-21] MEDS: VANCOMYCIN 1.25GM/NS 250ML IVPB SCH ×2 (12:00)
[2021-08-21] MEDS: PANTOPRAZOLE 40 MG/VIAL IVP SCH (21:08)
[2021-08-22] VITALS (103 sets, daily range): BP systolic 72–160; BP diastolic 28–101
[2021-08-22] MEDS: HYDROCORTISONE SOD SUCCINATE 100 MG/2 ML VIAL IV SCH ×2 (00:57→06:20)
[2021-08-22 04:36] LABS: HEMATOCRIT 23.2 % (42-54); MEAN CORPUSCULAR HEMOGLOBIN 29.5 pg (27.0-33.0); MEAN CORPUSCULAR HGB CONC 31.9 g/dL (32.0-36.0); MEAN CORPUSCULAR VOLUME 92.4 fL (79-99); NUCLEATED RED BLOOD CELLS 4.9 % (0.0-0.19); RED BLOOD CELL COUNT(AUTO) 2.51 MIL/uL (4.50-6.20); RED CELL DISTRIBUTION WIDTH 16.2 % (11.0-15.5); WHITE BLOOD COUNT (AUTO) 14.8 K/uL (4.8-10.8)
[2021-08-22 04:53] LABS: CREATININE 3.4 mg/dL (0.5-1.5); POTASSIUM 4.7 mmol/L (3.5-5.1)
[2021-08-22] MEDS: FENTANYL 2500MCG+NS 250ML IV.SOLN IV SCH ×3 (05:52→20:08)
[2021-08-22] MEDS: INSULIN HUMULIN R 100 UNIT/ML 3ML SQ SCH ×4 (06:21→18:00)
[2021-08-22] MEDS: INSULIN GLARGINE 100 UNITS/ML 10 ML VIAL SQ SCH ×2 (06:22→20:03)
[2021-08-22] MEDS: IPRATROPIUM/ALBUTEROL SULFATE 3 ML SOLUTION IH SCH ×5 (07:13→23:14)
[2021-08-22 07:56] LABS: ABG BASE EXCESS -2.4 mmol/L (-2.0-3.0); ABG HCO3 25.8 mmol/L (21.0-28.0); ABG OXYGEN SATURATION 88.7 % (95.0-99.0); ABG PCO2 65 mmHg (35-48)
[2021-08-22] MEDS ORDERED: RENAL DOSE IV SCH (12:00)
[2021-08-22] MEDS ORDERED: EPOETIN ALFA-EPBX (ESRD) 10,000 UNIT/ML VIAL SQ SCH (12:00)
[2021-08-22] MEDS: HEPARIN 5,000 UNIT VIAL SQ PRN (13:51)
[2021-08-22] MEDS: VANCOMYCIN 1.25GM/NS 250ML IVPB SCH ×2 (14:00)
[2021-08-22] MEDS: DEXAMETHASONE 4 MG TAB PO SCH ×2 (14:00→20:01)
[2021-08-22] MEDS: LEVOFLOXACIN 250 MG/D5W 50ML 50 ML IVPB SCH (14:00)
[2021-08-22] MEDS: APIXABAN 2.5 MG TABLET PO SCH ×2 (14:00→20:02)
[2021-08-22] MEDS: ARTIFICIAL TEARS 3.5 GM OINTMENT OU SCH ×2 (14:00→20:04)
[2021-08-22] MEDS: FLUCONAZOLE 200 MG/NS 100 ML 100 ML IV SCH (14:00)
[2021-08-22] MEDS: PANTOPRAZOLE 40 MG/VIAL IVP SCH (21:12)
[2021-08-23] VITALS (76 sets, daily range): BP systolic 48–197; BP diastolic 19–121
[2021-08-23] MEDS: INSULIN HUMULIN R 100 UNIT/ML 3ML SQ SCH ×4 (00:07→16:34)
[2021-08-23] MEDS: MIDAZOLAM 100MG-0.9% NS 100ML 50 ML IV PRN ×3 (00:08→23:25)
[2021-08-23] MEDS: IPRATROPIUM/ALBUTEROL SULFATE 3 ML SOLUTION IH SCH ×4 (03:06→20:17)
[2021-08-23 04:08] LABS: ABG BASE EXCESS 1.4 mmol/L (-2.0-3.0); ABG HCO3 27.9 mmol/L (21.0-28.0); ABG OXYGEN SATURATION 87.3 % (95.0-99.0); ABG PCO2 55 mmHg (35-48)
[2021-08-23 04:13] LABS: BASOPHILS % (AUTO) 0.8 % (0.0-5.0); EOSINOPHILS % (AUTO) 0.5 % (0.0-8.0); HEMATOCRIT 24.3 % (42-54); LYMPHOCYTES % (AUTO) 1.5 % (21.0-51.0); MEAN CORPUSCULAR HEMOGLOBIN 28.7 pg (27.0-33.0); MEAN CORPUSCULAR HGB CONC 30.9 g/dL (32.0-36.0); MEAN CORPUSCULAR VOLUME 93.1 fL (79-99); MONOCYTES % (AUTO) 4.7 % (3.0-13.0); NEUTROPHILS % (AUTO) 81.8 % (40.0-77.0); NUCLEATED RED BLOOD CELLS 4.5 % (0.0-0.19); PLATELET COUNT (AUTO) 182 K/uL (130-400); RED BLOOD CELL COUNT(AUTO) 2.61 MIL/uL (4.50-6.20); RED CELL DISTRIBUTION WIDTH 16.1 % (11.0-15.5); WHITE BLOOD COUNT (AUTO) 19.6 K/uL (4.8-10.8)
[2021-08-23 04:44] LABS: ALBUMIN 1.9 g/dL (3.5-5.0); BILIRUBIN,TOTAL 0.3 mg/dL (0.2-1.0); CREATININE 2.8 mg/dL (0.5-1.5); POTASSIUM 3.5 mmol/L (3.5-5.1); TOTAL PROTEIN, SERUM 5.4 g/dL (6.0-8.3)
[2021-08-23] MEDS: INSULIN GLARGINE 100 UNITS/ML 10 ML VIAL SQ SCH ×2 (06:32→20:12)
[2021-08-23] MEDS: PHENYLEPHRINE HCL 100 MG in 0.9% NACL 250ML 250 ML IV SCH (07:51)
[2021-08-23] MEDS: FENTANYL 2500MCG+NS 250ML IV.SOLN IV SCH ×2 (07:51→23:27)
[2021-08-23] MEDS: FLUCONAZOLE 200 MG/NS 100 ML 100 ML IV SCH (07:52)
[2021-08-23] MEDS: ARTIFICIAL TEARS 3.5 GM OINTMENT OU SCH ×2 (09:00→20:10)
[2021-08-23] MEDS: LEVOFLOXACIN 250 MG/D5W 50ML 50 ML IVPB SCH (09:00)
[2021-08-23] MEDS: APIXABAN 2.5 MG TABLET PO SCH ×2 (09:00→20:11)
[2021-08-23] MEDS: DEXAMETHASONE 4 MG TAB PO SCH ×2 (09:00→20:10)
[2021-08-23] MEDS: VANCOMYCIN 1.25GM/NS 250ML IVPB SCH ×2 (10:00)
[2021-08-23 10:34] LABS: CRP QUANTITATIVE 32.9 mg/L (0.00-9.0)
[2021-08-23] MEDS ORDERED: EPINEPHRINE PF 1MG AMP ONE (12:31)
[2021-08-23 12:39] LABS: ABG HCO3 22.6 mmol/L (21.0-28.0); ABG OXYGEN SATURATION 88.3 % (95.0-99.0); ABG PCO2 55 mmHg (35-48)
[2021-08-23] MEDS: MIDODRINE HCL 5 MG TABLET PO SCH ×2 (13:53→20:11)
[2021-08-23] MEDS: PANTOPRAZOLE 40 MG/VIAL IVP SCH (21:22)
[2021-08-24] VITALS (46 sets, daily range): BP systolic 79–170; BP diastolic 47–112
[2021-08-24] MEDS: INSULIN HUMULIN R 100 UNIT/ML 3ML SQ SCH ×4 (00:14→18:27)
[2021-08-24] MEDS: IPRATROPIUM/ALBUTEROL SULFATE 3 ML SOLUTION IH SCH ×6 (00:59→22:55)
[2021-08-24 03:58] LABS: ABG BASE EXCESS -3.1 mmol/L (-2.0-3.0); ABG HCO3 24.1 mmol/L (21.0-28.0); ABG OXYGEN SATURATION 94.8 % (95.0-99.0); ABG PCO2 53 mmHg (35-48)
[2021-08-24 04:12] LABS: HEMATOCRIT 23.9 % (42-54); MEAN CORPUSCULAR HEMOGLOBIN 28.8 pg (27.0-33.0); NUCLEATED RED BLOOD CELLS 2.5 % (0.0-0.19); RED BLOOD CELL COUNT(AUTO) 2.57 MIL/uL (4.50-6.20); RED CELL DISTRIBUTION WIDTH 16.2 % (11.0-15.5); WHITE BLOOD COUNT (AUTO) 17.7 K/uL (4.8-10.8)
[2021-08-24 04:27] LABS: CREATININE 3.7 mg/dL (0.5-1.5); POTASSIUM 3.8 mmol/L (3.5-5.1)
[2021-08-24] MEDS: INSULIN GLARGINE 100 UNITS/ML 10 ML VIAL SQ SCH ×2 (06:19→20:37)
[2021-08-24] MEDS: MIDODRINE HCL 5 MG TABLET PO SCH ×3 (08:26→20:34)
[2021-08-24] MEDS: LEVOFLOXACIN 250 MG/D5W 50ML 50 ML IVPB SCH (08:26)
[2021-08-24] MEDS: ARTIFICIAL TEARS 3.5 GM OINTMENT OU SCH ×2 (08:27→20:39)
[2021-08-24] MEDS: APIXABAN 2.5 MG TABLET PO SCH ×2 (08:27→20:35)
[2021-08-24] MEDS: DEXAMETHASONE 4 MG TAB PO SCH ×2 (08:27→20:35)
[2021-08-24] MEDS: FLUCONAZOLE 200 MG/NS 100 ML 100 ML IV SCH (09:00)
[2021-08-24] MEDS: MIDAZOLAM 100MG-0.9% NS 100ML 50 ML IV PRN (13:52)
[2021-08-24] MEDS: PANTOPRAZOLE 40 MG/VIAL IVP SCH (20:34)
[2021-08-24] MEDS: FENTANYL 2500MCG+NS 250ML IV.SOLN IV SCH (22:12)
[2021-08-24] MEDS: HYDRALAZINE 20MG/ML VIAL IV PRN (22:45)
[2021-08-25] VITALS (63 sets, daily range): BP systolic 99–167; BP diastolic 49–104
[2021-08-25] MEDS: INSULIN HUMULIN R 100 UNIT/ML 3ML SQ SCH ×5 (00:41→23:38)
[2021-08-25] MEDS: MIDAZOLAM 100MG-0.9% NS 100ML 50 ML IV PRN ×2 (02:15→12:56)
[2021-08-25] MEDS: IPRATROPIUM/ALBUTEROL SULFATE 3 ML SOLUTION IH SCH ×6 (02:48→22:00)
[2021-08-25 04:26] LABS: BASOPHILS % (AUTO) 0.5 % (0.0-5.0); HEMATOCRIT 24.3 % (42-54); MEAN CORPUSCULAR HEMOGLOBIN 29.7 pg (27.0-33.0); MEAN CORPUSCULAR HGB CONC 32.1 g/dL (32.0-36.0); MEAN CORPUSCULAR VOLUME 92.4 fL (79-99); MONOCYTES % (AUTO) 2.6 % (3.0-13.0); NEUTROPHILS % (AUTO) 88.7 % (40.0-77.0); NUCLEATED RED BLOOD CELLS 0.9 % (0.0-0.19); PLATELET COUNT (AUTO) 183 K/uL (130-400); RED BLOOD CELL COUNT(AUTO) 2.63 MIL/uL (4.50-6.20); RED CELL DISTRIBUTION WIDTH 16.3 % (11.0-15.5); WHITE BLOOD COUNT (AUTO) 22.9 K/uL (4.8-10.8)
[2021-08-25 04:43] LABS: ALBUMIN 1.8 g/dL (3.5-5.0); BILIRUBIN,TOTAL 0.3 mg/dL (0.2-1.0); CREATININE 4.4 mg/dL (0.5-1.5); MAGNESIUM 2.4 mg/dL (1.80-2.40); PHOSPHORUS 4.5 mg/dL (2.5-4.9); POTASSIUM 4.1 mmol/L (3.5-5.1); TOTAL PROTEIN, SERUM 5.5 g/dL (6.0-8.3)
[2021-08-25] MEDS: HYDRALAZINE 20MG/ML VIAL IV PRN (06:10)
[2021-08-25] MEDS: INSULIN GLARGINE 100 UNITS/ML 10 ML VIAL SQ SCH ×2 (08:38→20:59)
[2021-08-25] MEDS: FLUCONAZOLE 200 MG/NS 100 ML 100 ML IV SCH (08:38)
[2021-08-25] MEDS: ERGOCALCIFEROL (VITAMIN D2) 50,000 UNIT CAPSULE PO SCH (08:38)
[2021-08-25] MEDS: MIDODRINE HCL 5 MG TABLET PO SCH ×3 (08:38→21:00)
[2021-08-25] MEDS: APIXABAN 2.5 MG TABLET PO SCH ×2 (08:38→21:00)
[2021-08-25] MEDS: DEXAMETHASONE 4 MG TAB PO SCH ×2 (08:38→21:00)
[2021-08-25] MEDS: LEVOFLOXACIN 250 MG/D5W 50ML 50 ML IVPB SCH (08:38)
[2021-08-25] MEDS: ARTIFICIAL TEARS 3.5 GM OINTMENT OU SCH ×2 (08:38→21:49)
[2021-08-25] MEDS: FENTANYL 2500MCG+NS 250ML IV.SOLN IV SCH (12:57)
[2021-08-25] MEDS ORDERED: 0.9%NACL 1000ML 2,000 ML IV ONE (19:39)
[2021-08-25] MEDS ORDERED: BALSAM PERU/CASTOR OIL 60 GM TUBE TP SCH (21:00)
[2021-08-25] MEDS: EPOETIN ALFA-EPBX (ESRD) 10,000 UNIT/ML VIAL SQ SCH (21:01)
[2021-08-25] MEDS: PANTOPRAZOLE 40 MG/VIAL IVP SCH (21:03)
[2021-08-25] MEDS: HEPARIN 5,000 UNIT VIAL SQ PRN (22:59)
[2021-08-26] VITALS (61 sets, daily range): BP systolic 84–178; BP diastolic 37–102
[2021-08-26] MEDS ORDERED: FENTANYL 2500MCG+NS 250ML 250 ML IV ONE ×2 (00:16→08:07)
[2021-08-26] MEDS: IPRATROPIUM/ALBUTEROL SULFATE 3 ML SOLUTION IH SCH ×5 (03:00→22:25)
[2021-08-26 04:21] LABS: BASOPHILS % (AUTO) 0.2 % (0.0-5.0); HEMATOCRIT 24.5 % (42-54); LYMPHOCYTES % (AUTO) 0.8 % (21.0-51.0); MEAN CORPUSCULAR HEMOGLOBIN 28.5 pg (27.0-33.0); MEAN CORPUSCULAR VOLUME 91.8 fL (79-99); MONOCYTES % (AUTO) 1.2 % (3.0-13.0); NEUTROPHILS % (AUTO) 93.2 % (40.0-77.0); NUCLEATED RED BLOOD CELLS 0.6 % (0.0-0.19); PLATELET COUNT (AUTO) 159 K/uL (130-400); RED BLOOD CELL COUNT(AUTO) 2.67 MIL/uL (4.50-6.20); RED CELL DISTRIBUTION WIDTH 16.7 % (11.0-15.5); WHITE BLOOD COUNT (AUTO) 22.4 K/uL (4.8-10.8)
[2021-08-26 04:36] LABS: ALBUMIN 1.7 g/dL (3.5-5.0); BILIRUBIN,TOTAL 0.3 mg/dL (0.2-1.0); CREATININE 3.5 mg/dL (0.5-1.5); TOTAL PROTEIN, SERUM 5.2 g/dL (6.0-8.3)
[2021-08-26 05:05] LABS: ABG BASE EXCESS -3.5 mmol/L (-2.0-3.0); ABG HCO3 23.5 mmol/L (21.0-28.0); ABG PCO2 52 mmHg (35-48)
[2021-08-26] MEDS: INSULIN HUMULIN R 100 UNIT/ML 3ML SQ SCH ×4 (06:35→23:55)
[2021-08-26] MEDS: INSULIN GLARGINE 100 UNITS/ML 10 ML VIAL SQ SCH ×2 (06:36→20:04)
[2021-08-26] MEDS: LEVOFLOXACIN 250 MG/D5W 50ML 50 ML IVPB SCH (08:11)
[2021-08-26] MEDS: FLUCONAZOLE 200 MG/NS 100 ML 100 ML IV SCH (08:11)
[2021-08-26] MEDS: MIDODRINE HCL 5 MG TABLET PO SCH ×3 (08:11→20:00)
[2021-08-26] MEDS: APIXABAN 2.5 MG TABLET PO SCH ×2 (08:12→20:01)
[2021-08-26] MEDS: DEXAMETHASONE 4 MG TAB PO SCH ×2 (08:12→20:01)
[2021-08-26] MEDS: MIDAZOLAM 100MG-0.9% NS 100ML 50 ML IV PRN ×2 (08:16→17:37)
[2021-08-26] MEDS: ARTIFICIAL TEARS 3.5 GM OINTMENT OU SCH ×2 (08:17→20:45)
[2021-08-26] MEDS: BALSAM PERU/CASTOR OIL 60 GM TUBE TP SCH ×2 (08:18→20:04)
[2021-08-26] MEDS: EPOETIN ALFA-EPBX (ESRD) 10,000 UNIT/ML VIAL SQ SCH (20:45)
[2021-08-27] VITALS (57 sets, daily range): BP systolic 77–168; BP diastolic 33–93
[2021-08-27] MEDS ORDERED: FENTANYL 2500MCG+NS 250ML 250 ML IV ONE ×2 (01:17→07:53)
[2021-08-27] MEDS: IPRATROPIUM/ALBUTEROL SULFATE 3 ML SOLUTION IH SCH ×5 (02:31→20:14)
[2021-08-27 04:20] LABS: BASOPHILS % (AUTO) 0.3 % (0.0-5.0); HEMATOCRIT 26.1 % (42-54); LYMPHOCYTES % (AUTO) 0.5 % (21.0-51.0); MEAN CORPUSCULAR HEMOGLOBIN 29.5 pg (27.0-33.0); MEAN CORPUSCULAR HGB CONC 31.8 g/dL (32.0-36.0); MEAN CORPUSCULAR VOLUME 92.9 fL (79-99); MONOCYTES % (AUTO) 1.5 % (3.0-13.0); NEUTROPHILS % (AUTO) 93.6 % (40.0-77.0); NUCLEATED RED BLOOD CELLS 0.7 % (0.0-0.19); PLATELET COUNT (AUTO) 180 K/uL (130-400); RED BLOOD CELL COUNT(AUTO) 2.81 MIL/uL (4.50-6.20); RED CELL DISTRIBUTION WIDTH 16.6 % (11.0-15.5); WHITE BLOOD COUNT (AUTO) 24.1 K/uL (4.8-10.8)
[2021-08-27] MEDS: MIDAZOLAM 100MG-0.9% NS 100ML 50 ML IV PRN ×3 (04:25→23:41)
[2021-08-27 04:45] LABS: ALBUMIN 1.8 g/dL (3.5-5.0); BILIRUBIN,TOTAL 0.3 mg/dL (0.2-1.0); CREATININE 3.9 mg/dL (0.5-1.5); POTASSIUM 4.2 mmol/L (3.5-5.1); TOTAL PROTEIN, SERUM 5.3 g/dL (6.0-8.3)
[2021-08-27] MEDS: INSULIN HUMULIN R 100 UNIT/ML 3ML SQ SCH ×4 (06:11→23:28)
[2021-08-27] MEDS: INSULIN GLARGINE 100 UNITS/ML 10 ML VIAL SQ SCH ×2 (06:12→20:07)
[2021-08-27] MEDS ORDERED: FENTANYL 2500MCG+NS 250ML IV.SOLN IV SCH (08:00)
[2021-08-27 08:26] LABS: ABG BASE EXCESS -3.4 mmol/L (-2.0-3.0); ABG OXYGEN SATURATION 81.8 % (95.0-99.0); ABG PCO2 66 mmHg (35-48)
[2021-08-27] MEDS: MIDODRINE HCL 5 MG TABLET PO SCH ×3 (08:56→20:05)
[2021-08-27] MEDS: DEXAMETHASONE 4 MG TAB PO SCH ×2 (08:57→20:05)
[2021-08-27] MEDS: APIXABAN 2.5 MG TABLET PO SCH ×2 (08:57→20:04)
[2021-08-27] MEDS: FLUCONAZOLE 200 MG/NS 100 ML 100 ML IV SCH (08:57)
[2021-08-27] MEDS: LEVOFLOXACIN 250 MG/D5W 50ML 50 ML IVPB SCH (08:57)
[2021-08-27] MEDS: BALSAM PERU/CASTOR OIL 60 GM TUBE TP SCH ×2 (08:58→20:05)
[2021-08-27] MEDS: ARTIFICIAL TEARS 3.5 GM OINTMENT OU SCH ×2 (08:58→20:05)
[2021-08-27] MEDS: FENTANYL 2500MCG+NS 250ML 250 ML IV SCH ×2 (15:49→23:25)
[2021-08-27] MEDS: PHENYLEPHRINE HCL 100 MG in 0.9% NACL 250ML 250 ML IV SCH (23:26)
[2021-08-28] VITALS (43 sets, daily range): BP systolic 78–154; BP diastolic 34–90
[2021-08-28] MEDS: IPRATROPIUM/ALBUTEROL SULFATE 3 ML SOLUTION IH SCH ×7 (00:04→20:28)
[2021-08-28 03:36] LABS: ABG BASE EXCESS -0.5 mmol/L (-2.0-3.0); ABG HCO3 29.2 mmol/L (21.0-28.0); ABG OXYGEN SATURATION 84.4 % (95.0-99.0); ABG PCO2 71 mmHg (35-48)
[2021-08-28 04:34] LABS: BASOPHILS % (AUTO) 0.3 % (0.0-5.0); LYMPHOCYTES % (AUTO) 0.3 % (21.0-51.0); MEAN CORPUSCULAR HEMOGLOBIN 29.2 pg (27.0-33.0); MEAN CORPUSCULAR HGB CONC 31.8 g/dL (32.0-36.0); MEAN CORPUSCULAR VOLUME 91.8 fL (79-99); MONOCYTES % (AUTO) 2.8 % (3.0-13.0); NEUTROPHILS % (AUTO) 92.6 % (40.0-77.0); NUCLEATED RED BLOOD CELLS 2.2 % (0.0-0.19); PLATELET COUNT (AUTO) 207 K/uL (130-400); RED BLOOD CELL COUNT(AUTO) 3.05 MIL/uL (4.50-6.20); RED CELL DISTRIBUTION WIDTH 17.1 % (11.0-15.5); WHITE BLOOD COUNT (AUTO) 28.8 K/uL (4.8-10.8)
[2021-08-28 04:48] LABS: ALBUMIN 2.1 g/dL (3.5-5.0); BILIRUBIN,TOTAL 0.2 mg/dL (0.2-1.0); CREATININE 2.9 mg/dL (0.5-1.5); MAGNESIUM 2.2 mg/dL (1.80-2.40); PHOSPHORUS 4.6 mg/dL (2.5-4.9); POTASSIUM 3.7 mmol/L (3.5-5.1); TOTAL PROTEIN, SERUM 5.7 g/dL (6.0-8.3)
[2021-08-28] MEDS: INSULIN GLARGINE 100 UNITS/ML 10 ML VIAL SQ SCH ×2 (06:40→20:06)
[2021-08-28] MEDS: INSULIN HUMULIN R 100 UNIT/ML 3ML SQ SCH ×4 (06:41→23:34)
[2021-08-28] MEDS: FENTANYL 2500MCG+NS 250ML 250 ML IV SCH ×2 (06:52→13:37)
[2021-08-28] MEDS: MIDODRINE HCL 5 MG TABLET PO SCH ×3 (08:37→20:03)
[2021-08-28] MEDS: DEXAMETHASONE 4 MG TAB PO SCH ×2 (08:38→20:03)
[2021-08-28] MEDS: BALSAM PERU/CASTOR OIL 60 GM TUBE TP SCH ×2 (08:38→20:05)
[2021-08-28] MEDS: ARTIFICIAL TEARS 3.5 GM OINTMENT OU SCH ×2 (08:39→20:07)
[2021-08-28] MEDS: MIDAZOLAM 100MG-0.9% NS 100ML 50 ML IV PRN ×2 (08:39→22:14)
[2021-08-28] MEDS: FLUCONAZOLE 200 MG/NS 100 ML 100 ML IV SCH (08:40)
[2021-08-28] MEDS: LEVOFLOXACIN 250 MG/D5W 50ML 50 ML IVPB SCH (08:40)
[2021-08-28] MEDS: APIXABAN 2.5 MG TABLET PO SCH ×2 (08:43→20:03)
[2021-08-28] MEDS: EPOETIN ALFA-EPBX (ESRD) 10,000 UNIT/ML VIAL SQ SCH (20:03)
[2021-08-29] VITALS (80 sets, daily range): BP systolic 68–157; BP diastolic 30–91
[2021-08-29] MEDS: IPRATROPIUM/ALBUTEROL SULFATE 3 ML SOLUTION IH SCH ×6 (00:31→22:37)
[2021-08-29] MEDS: FENTANYL 2500MCG+NS 250ML 250 ML IV SCH ×3 (01:29→22:57)
[2021-08-29 04:57] LABS: ABG BASE EXCESS -1.7 mmol/L (-2.0-3.0); ABG OXYGEN SATURATION 88.1 % (95.0-99.0); ABG PCO2 61 mmHg (35-48)
[2021-08-29 05:14] LABS: BASOPHILS % (AUTO) 0.2 % (0.0-5.0); HEMATOCRIT 25.4 % (42-54); LYMPHOCYTES % (AUTO) 0.6 % (21.0-51.0); MEAN CORPUSCULAR HEMOGLOBIN 28.3 pg (27.0-33.0); MEAN CORPUSCULAR HGB CONC 31.1 g/dL (32.0-36.0); MONOCYTES % (AUTO) 1.6 % (3.0-13.0); NEUTROPHILS % (AUTO) 93.6 % (40.0-77.0); NUCLEATED RED BLOOD CELLS 1.8 % (0.0-0.19); PLATELET COUNT (AUTO) 173 K/uL (130-400); RED BLOOD CELL COUNT(AUTO) 2.79 MIL/uL (4.50-6.20); RED CELL DISTRIBUTION WIDTH 17.2 % (11.0-15.5); WHITE BLOOD COUNT (AUTO) 23.4 K/uL (4.8-10.8)
[2021-08-29 05:36] LABS: ALBUMIN 1.9 g/dL (3.5-5.0); BILIRUBIN,TOTAL 0.2 mg/dL (0.2-1.0); CREATININE 3.3 mg/dL (0.5-1.5); POTASSIUM 4.2 mmol/L (3.5-5.1)
[2021-08-29] MEDS: INSULIN HUMULIN R 100 UNIT/ML 3ML SQ SCH ×3 (05:53→16:58)
[2021-08-29] MEDS: INSULIN GLARGINE 100 UNITS/ML 10 ML VIAL SQ SCH ×2 (06:03→21:04)
[2021-08-29] MEDS: FLUCONAZOLE 200 MG/NS 100 ML 100 ML IV SCH (08:20)
[2021-08-29] MEDS: LEVOFLOXACIN 250 MG/D5W 50ML 50 ML IVPB SCH (08:20)
[2021-08-29] MEDS: MIDAZOLAM 100MG-0.9% NS 100ML 50 ML IV PRN ×2 (08:21→16:57)
[2021-08-29] MEDS: ARTIFICIAL TEARS 3.5 GM OINTMENT OU SCH ×2 (08:21→21:03)
[2021-08-29] MEDS: BALSAM PERU/CASTOR OIL 60 GM TUBE TP SCH ×2 (08:22→21:03)
[2021-08-29] MEDS: APIXABAN 2.5 MG TABLET PO SCH ×2 (08:22→21:01)
[2021-08-29] MEDS: MIDODRINE HCL 5 MG TABLET PO SCH ×3 (08:22→21:01)
[2021-08-29] MEDS: DEXAMETHASONE 4 MG TAB PO SCH ×2 (08:22→21:02)
[2021-08-29] MEDS ORDERED: 0.9%NACL 1000ML 2,000 ML IV ONE (09:49)
[2021-08-29] MEDS ORDERED: ALBUMIN (HUMAN) 25% 100 ML IV ONE (10:34)
[2021-08-29] MEDS ORDERED: ALBUMIN (HUMAN) 25% 100 ML IV PRN (11:00)
[2021-08-29] MEDS: HEPARIN 5,000 UNIT VIAL SQ PRN (14:06)
[2021-08-29] MEDS: PHENYLEPHRINE HCL 100 MG in 0.9% NACL 250ML 250 ML IV SCH (16:27)
[2021-08-29] MEDS: DOCUSATE NA 100MG/10ML UDCUP PO PRN (16:56)
[2021-08-29] MEDS: LACTULOSE 20 GM/30 ML UDCUP PO PRN (16:56)
[2021-08-30] VITALS (73 sets, daily range): BP systolic 44–172; BP diastolic 21–96
[2021-08-30] MEDS: INSULIN HUMULIN R 100 UNIT/ML 3ML SQ SCH ×4 (00:46→18:00)
[2021-08-30] MEDS: IPRATROPIUM/ALBUTEROL SULFATE 3 ML SOLUTION IH SCH ×6 (02:53→21:30)
[2021-08-30] MEDS: MIDAZOLAM 100MG-0.9% NS 100ML 50 ML IV PRN ×2 (04:52→14:21)
[2021-08-30 05:28] LABS: ALBUMIN 2.3 g/dL (3.5-5.0); BILIRUBIN,TOTAL 0.2 mg/dL (0.2-1.0); CREATININE 2.8 mg/dL (0.5-1.5); POTASSIUM 3.8 mmol/L (3.5-5.1); TOTAL PROTEIN, SERUM 5.1 g/dL (6.0-8.3)
[2021-08-30 06:14] LABS: BASOPHILS % (AUTO) 0.2 % (0.0-5.0); HEMATOCRIT 21.7 % (42-54); LYMPHOCYTES % (AUTO) 0.3 % (21.0-51.0); MEAN CORPUSCULAR HGB CONC 32.3 g/dL (32.0-36.0); MEAN CORPUSCULAR VOLUME 93.1 fL (79-99); MONOCYTES % (AUTO) 4.2 % (3.0-13.0); NEUTROPHILS % (AUTO) 91.4 % (40.0-77.0); PLATELET COUNT (AUTO) 152 K/uL (130-400); RED BLOOD CELL COUNT(AUTO) 2.33 MIL/uL (4.50-6.20); RED CELL DISTRIBUTION WIDTH 17.7 % (11.0-15.5)
[2021-08-30 06:19] LABS: WHITE BLOOD COUNT (AUTO) 30.9 K/uL (4.8-10.8)
[2021-08-30] MEDS: INSULIN GLARGINE 100 UNITS/ML 10 ML VIAL SQ SCH ×2 (06:40→20:59)
[2021-08-30] MEDS: FENTANYL 2500MCG+NS 250ML 250 ML IV SCH ×2 (07:15→15:46)
[2021-08-30 07:34] LABS: BAND NEUTROPHILS % (MANUAL) 3 % (0-2); LYMPHOCYTES % (MANUAL) 4 % (22-44); MAN.DIFF COMMENT-IMPRESSION MANUAL DIFFERENTIAL; MONOCYTES % (MANUAL) 5 % (2-9); PLATELET MORPHOLOGY COMMENT ADEQUATE; SEGMENTED NEUTROPHILS % 88 % (40-70)
[2021-08-30] MEDS: FLUCONAZOLE 200 MG/NS 100 ML 100 ML IV SCH (08:55)
[2021-08-30] MEDS: LEVOFLOXACIN 250 MG/D5W 50ML 50 ML IVPB SCH (08:55)
[2021-08-30] MEDS: ARTIFICIAL TEARS 3.5 GM OINTMENT OU SCH ×2 (08:55→20:56)
[2021-08-30] MEDS: DEXAMETHASONE 4 MG TAB PO SCH ×2 (08:56→20:56)
[2021-08-30] MEDS: BALSAM PERU/CASTOR OIL 60 GM TUBE TP SCH ×2 (08:57→20:56)
[2021-08-30] MEDS: APIXABAN 2.5 MG TABLET PO SCH (09:00)
[2021-08-30] MEDS: ATROPINE 1MG SYG IVP ONE (10:21)
[2021-08-30] MEDS: EPINEPHRINE PF 1MG AMP ONE (10:21)
[2021-08-30 10:43] LABS: APPEARANCE,URINE SL CLOUDY (CLEAR); BILIRUBIN,URINE SMALL (NEGATIVE); COLOR,URINE BROWN (YELLOW); GLUCOSE, URINE (UA) 250 mg/dL (NEGATIVE); KETONES,URINE NEGATIVE (NEGATIVE); LEUKOCYTE ESTERASE ,URINE NEGATIVE (NEGATIVE); NITRATE,URINE POSITIVE (NEGATIVE); OCCULT BLOOD,URINE TRACE-INTACT (NEGATIVE); PH,URINE 5.5 (5.0-8.0); PROTEIN,URINE >=300 mg/dL (NEGATIVE); UROBILINOGEN,URINE 0.2 mg/dL (0.2-1.0)
[2021-08-30 11:27] LABS: BACTERIA,URINE Moderate /HPF (None Seen); RBC,URINE 0-1 /HPF (0-1)
[2021-08-30 11:28] LABS: SQUAMOUS EPITHELIAL CELL,UR 0-2 /HPF (0-2)
[2021-08-30 11:29] LABS: SPERM,URINE Few /HPF (None Seen)
[2021-08-30 13:50] LABS: HEMATOCRIT 23.9 % (42-54)
[2021-08-30] MEDS ORDERED: MIDODRINE HCL 5 MG TABLET PO SCH (14:00)
[2021-08-30] MEDS: DOCUSATE NA 100MG/10ML UDCUP PO PRN (14:20)
[2021-08-30] MEDS: PANTOPRAZOLE 40MG INJ 80 MG in 0.9%NACL 100ML 100 ML IVP SCH (14:20)
[2021-08-30] MEDS: LACTULOSE 20 GM/30 ML UDCUP PO PRN (14:20)
[2021-08-30] MEDS: MIDODRINE HCL 5 MG TABLET PO SCH ×2 (14:20→20:56)
[2021-08-30] MEDS ORDERED: FLUCONAZOLE 100 MG TAB PO SCH (16:24)
[2021-08-30] MEDS: FLUCONAZOLE 100 MG TAB PO SCH (17:07)
[2021-08-30 18:06] LABS: ABG BASE EXCESS -2.6 mmol/L (-2.0-3.0); ABG HCO3 29.1 mmol/L (21.0-28.0); ABG OXYGEN SATURATION 96.5 % (95.0-99.0); ABG PCO2 118 mmHg (35-48)
[2021-08-30] MEDS ORDERED: VASOPRESSIN 20 UNITS in 0.9%NACL 100ML 100 ML IV SCH (18:30)
[2021-08-30 19:37] LABS: ABG BASE EXCESS -2.9 mmol/L (-2.0-3.0); ABG HCO3 25.9 mmol/L (21.0-28.0); ABG OXYGEN SATURATION 91.2 % (95.0-99.0); ABG PCO2 62 mmHg (35-48)
[2021-08-30] MEDS: SULFAMETHOX-TMP DS 800/160 TAB PO SCH (20:56)
[2021-08-31] VITALS (29 sets, daily range): BP systolic 89–167; BP diastolic 42–100
[2021-08-31] MEDS: FENTANYL 2500MCG+NS 250ML 250 ML IV SCH ×4 (00:17→21:20)
[2021-08-31] MEDS: PANTOPRAZOLE 40MG INJ 80 MG in 0.9%NACL 100ML 100 ML IVP SCH ×3 (00:19→21:08)
[2021-08-31] MEDS: MIDAZOLAM 100MG-0.9% NS 100ML 50 ML IV PRN ×3 (00:35→21:18)
[2021-08-31] MEDS: INSULIN HUMULIN R 100 UNIT/ML 3ML SQ SCH ×4 (00:37→17:54)
[2021-08-31] MEDS: IPRATROPIUM/ALBUTEROL SULFATE 3 ML SOLUTION IH SCH ×6 (01:49→22:14)
[2021-08-31 03:15] LABS: ABG HCO3 24.6 mmol/L (21.0-28.0); ABG OXYGEN SATURATION 89.4 % (95.0-99.0); ABG PCO2 60 mmHg (35-48)
[2021-08-31 04:28] LABS: ALBUMIN 2.1 g/dL (3.5-5.0); BILIRUBIN,TOTAL 0.2 mg/dL (0.2-1.0); CREATININE 3.2 mg/dL (0.5-1.5); POTASSIUM 4.3 mmol/L (3.5-5.1); TOTAL PROTEIN, SERUM 4.9 g/dL (6.0-8.3)
[2021-08-31 05:42] LABS: BASOPHILS % (AUTO) 0.1 % (0.0-5.0); MEAN CORPUSCULAR HEMOGLOBIN 29.4 pg (27.0-33.0); MEAN CORPUSCULAR HGB CONC 31.3 g/dL (32.0-36.0); MEAN CORPUSCULAR VOLUME 93.8 fL (79-99); MONOCYTES % (AUTO) 3.1 % (3.0-13.0); NEUTROPHILS % (AUTO) 93.8 % (40.0-77.0); NUCLEATED RED BLOOD CELLS 2.2 % (0.0-0.19); PLATELET COUNT (AUTO) 158 K/uL (130-400); RED BLOOD CELL COUNT(AUTO) 2.11 MIL/uL (4.50-6.20)
[2021-08-31 05:43] LABS: HEMATOCRIT 19.8 % (42-54); WHITE BLOOD COUNT (AUTO) 31.9 K/uL (4.8-10.8)
[2021-08-31] MEDS: ATROPINE 1MG SYG IVP ONE (07:30)
[2021-08-31] MEDS: INSULIN GLARGINE 100 UNITS/ML 10 ML VIAL SQ SCH ×2 (07:30→20:57)
[2021-08-31] MEDS: EPINEPHRINE PF 1MG AMP ONE (07:30)
[2021-08-31] MEDS: ARTIFICIAL TEARS 3.5 GM OINTMENT OU SCH ×2 (07:45→20:58)
[2021-08-31] MEDS: DEXAMETHASONE 4 MG TAB PO SCH ×2 (07:45→20:55)
[2021-08-31] MEDS: SULFAMETHOX-TMP DS 800/160 TAB PO SCH ×2 (07:45→20:54)
[2021-08-31] MEDS: FLUCONAZOLE 100 MG TAB PO SCH (07:49)
[2021-08-31] MEDS: BALSAM PERU/CASTOR OIL 60 GM TUBE TP SCH ×2 (07:52→20:58)
[2021-08-31] MEDS: MIDODRINE HCL 5 MG TABLET PO SCH ×3 (08:22→20:54)
[2021-08-31 11:22] LABS: HEMATOCRIT 23.3 % (42-54)
[2021-08-31 13:34] LABS: INR 0.94 (0.85-1.15); PROTHROMBIN TIME 10.3 SEC (9.6-11.6)
[2021-08-31 13:35] LABS: PARTIAL THROMBOPLASTIN TIME 31.1 SEC (26.3-35.5)
[2021-08-31 14:25] LABS: ABG BASE EXCESS -5.4 mmol/L (-2.0-3.0); ABG HCO3 23.2 mmol/L (21.0-28.0); ABG OXYGEN SATURATION 90.9 % (95.0-99.0); ABG PCO2 67 mmHg (35-48)
[2021-08-31] MEDS ORDERED: DEXMEDETOMIDINE 400MCG/NS100ML IV ONE (15:32)
[2021-08-31] MEDS: EPOETIN ALFA-EPBX (ESRD) 10,000 UNIT/ML VIAL SQ SCH (20:58)
[2021-08-31 21:36] LABS: HEMATOCRIT 22.8 % (42-54)
[2021-09-01] VITALS (91 sets, daily range): BP systolic 110–173; BP diastolic 51–105
[2021-09-01] MEDS: INSULIN HUMULIN R 100 UNIT/ML 3ML SQ SCH ×4 (00:03→17:51)
[2021-09-01] MEDS: IPRATROPIUM/ALBUTEROL SULFATE 3 ML SOLUTION IH SCH ×4 (02:00→13:30)
[2021-09-01] MEDS: DEXMEDETOMIDINE 400MCG/NS100ML IV SCH ×6 (02:30→21:34)
[2021-09-01 05:26] LABS: HEMATOCRIT 21.6 % (42-54); MEAN CORPUSCULAR HEMOGLOBIN 30.4 pg (27.0-33.0); MEAN CORPUSCULAR HGB CONC 32.4 g/dL (32.0-36.0); MEAN CORPUSCULAR VOLUME 93.9 fL (79-99); NUCLEATED RED BLOOD CELLS 4.4 % (0.0-0.19); RED BLOOD CELL COUNT(AUTO) 2.3 MIL/uL (4.50-6.20); RED CELL DISTRIBUTION WIDTH 17.5 % (11.0-15.5); WHITE BLOOD COUNT (AUTO) 23.4 K/uL (4.8-10.8)
[2021-09-01 05:45] LABS: BILIRUBIN,TOTAL 0.2 mg/dL (0.2-1.0); CREATININE 3.5 mg/dL (0.5-1.5); POTASSIUM 4.6 mmol/L (3.5-5.1); TOTAL PROTEIN, SERUM 4.8 g/dL (6.0-8.3)
[2021-09-01] MEDS: INSULIN GLARGINE 100 UNITS/ML 10 ML VIAL SQ SCH ×2 (06:20→21:00)
[2021-09-01] MEDS: MIDAZOLAM 100MG-0.9% NS 100ML 50 ML IV PRN ×2 (06:26→14:00)
[2021-09-01] MEDS: PANTOPRAZOLE 40MG INJ 80 MG in 0.9%NACL 100ML 100 ML IVP SCH (07:41)
[2021-09-01] MEDS: FENTANYL 2500MCG+NS 250ML 250 ML IV SCH ×2 (07:42→15:07)
[2021-09-01] MEDS: BALSAM PERU/CASTOR OIL 60 GM TUBE TP SCH ×2 (07:45→20:41)
[2021-09-01] MEDS: ARTIFICIAL TEARS 3.5 GM OINTMENT OU SCH ×2 (07:45→20:41)
[2021-09-01] MEDS: FLUCONAZOLE 100 MG TAB PO SCH (08:38)
[2021-09-01] MEDS: MIDODRINE HCL 5 MG TABLET PO SCH ×3 (08:39→20:34)
[2021-09-01] MEDS: ERGOCALCIFEROL (VITAMIN D2) 50,000 UNIT CAPSULE PO SCH (08:39)
[2021-09-01] MEDS: SULFAMETHOX-TMP DS 800/160 TAB PO SCH ×2 (08:39→20:33)
[2021-09-01] MEDS: DEXAMETHASONE 4 MG TAB PO SCH ×2 (08:39→20:33)
[2021-09-01] MEDS ORDERED: ALBUMIN (HUMAN) 25% 100 ML IV ONE (10:01)
[2021-09-01] MEDS: PHENYLEPHRINE HCL 100 MG in 0.9% NACL 250ML 250 ML IV SCH (11:21)
[2021-09-01 12:21] LABS: HEMATOCRIT 31.3 % (42-54)
[2021-09-01] MEDS ORDERED: INSULIN HUMULIN R 100 UNIT/ML 3ML SQ SCH (13:00)
[2021-09-01 13:27] LABS: ABG BASE EXCESS -4.5 mmol/L (-2.0-3.0); ABG HCO3 23.3 mmol/L (21.0-28.0); ABG OXYGEN SATURATION 84.9 % (95.0-99.0); ABG PCO2 56 mmHg (35-48)
[2021-09-01] MEDS: HEPARIN 5,000 UNIT VIAL SQ PRN (13:53)
[2021-09-01] MEDS ORDERED: FENTANYL 2500MCG+NS 250ML IV.SOLN IV SCH (15:00)
[2021-09-01] MEDS ORDERED: PROPOFOL 1000 MG/100 ML 100 ML IV ONE (17:26)
[2021-09-01] MEDS ORDERED: PROPOFOL 1000 MG/100 ML IV PRN (17:30)
[2021-09-01] MEDS: CISATRACURIUM BESYLATE 100 MG in 0.9%NACL 100ML 100 ML IV SCH (17:57)
[2021-09-01] MEDS: PROPOFOL 1000 MG/100 ML 100 ML IV PRN ×2 (20:14→22:54)
[2021-09-01] MEDS: PANTOPRAZOLE 40 MG/VIAL IVP SCH (20:41)
[2021-09-02] VITALS (60 sets, daily range): BP systolic 116–159; BP diastolic 59–84
[2021-09-02 00:29] LABS: HEMATOCRIT 23.3 % (42-54)
[2021-09-02] MEDS: DEXMEDETOMIDINE 400MCG/NS100ML IV SCH ×7 (00:45→18:50)
[2021-09-02] MEDS: FENTANYL 2500MCG+NS 250ML 250 ML IV SCH ×4 (00:45→19:33)
[2021-09-02] MEDS: IPRATROPIUM/ALBUTEROL SULFATE 3 ML SOLUTION IH SCH ×7 (01:07→22:15)
[2021-09-02] MEDS: PROPOFOL 1000 MG/100 ML 100 ML IV PRN ×6 (02:24→18:51)
[2021-09-02] MEDS: MIDAZOLAM 100MG-0.9% NS 100ML 50 ML IV PRN ×3 (02:28→21:33)
[2021-09-02 05:59] LABS: MEAN CORPUSCULAR HEMOGLOBIN 30.4 pg (27.0-33.0); MEAN CORPUSCULAR HGB CONC 32.1 g/dL (32.0-36.0); MEAN CORPUSCULAR VOLUME 94.9 fL (79-99); NUCLEATED RED BLOOD CELLS 3.4 % (0.0-0.19); RED BLOOD CELL COUNT(AUTO) 2.53 MIL/uL (4.50-6.20); RED CELL DISTRIBUTION WIDTH 16.8 % (11.0-15.5); WHITE BLOOD COUNT (AUTO) 27.4 K/uL (4.8-10.8)
[2021-09-02] MEDS: INSULIN HUMULIN R 100 UNIT/ML 3ML SQ SCH ×4 (06:00→18:00)
[2021-09-02 06:15] LABS: BILIRUBIN,TOTAL 0.2 mg/dL (0.2-1.0); CREATININE 2.8 mg/dL (0.5-1.5); POTASSIUM 4.2 mmol/L (3.5-5.1); TOTAL PROTEIN, SERUM 4.6 g/dL (6.0-8.3)
[2021-09-02] MEDS: INSULIN GLARGINE 100 UNITS/ML 10 ML VIAL SQ SCH ×2 (07:30→19:37)
[2021-09-02] MEDS: PANTOPRAZOLE 40 MG/VIAL IVP SCH ×2 (07:47→20:16)
[2021-09-02] MEDS: BALSAM PERU/CASTOR OIL 60 GM TUBE TP SCH ×2 (07:51→20:19)
[2021-09-02] MEDS: CISATRACURIUM BESYLATE 100 MG in 0.9%NACL 100ML 100 ML IV SCH (08:30)
[2021-09-02] MEDS ORDERED: FENTANYL 2500MCG+NS 250ML IV.SOLN IV SCH (09:00)
[2021-09-02] MEDS: DEXAMETHASONE 4 MG TAB PO SCH ×2 (09:00→19:36)
[2021-09-02] MEDS: MIDODRINE HCL 5 MG TABLET PO SCH ×3 (09:00→19:37)
[2021-09-02] MEDS: SULFAMETHOX-TMP DS 800/160 TAB PO SCH ×2 (09:00→19:33)
[2021-09-02] MEDS: ARTIFICIAL TEARS 3.5 GM OINTMENT OU SCH ×2 (09:41→20:20)
[2021-09-02 12:07] LABS: HEMATOCRIT 24.6 % (42-54)
[2021-09-02] MEDS ORDERED: CEFAZOLIN SODIUM 1 GM VIAL ONE (12:33)
[2021-09-02] MEDS ORDERED: CEFAZOLIN SODIUM 1 GM VIAL IVP SCH (13:00)
[2021-09-02] MEDS: METOCLOPRAMIDE 10 MG/2 ML VIAL IVP SCH (16:12)
[2021-09-02 18:06] LABS: HEMATOCRIT 24.5 % (42-54)
[2021-09-02] MEDS: EPOETIN ALFA-EPBX (ESRD) 10,000 UNIT/ML VIAL SQ SCH (20:17)
[2021-09-03] VITALS (47 sets, daily range): BP systolic 87–166; BP diastolic 45–93
[2021-09-03] MEDS: ROCURONIUM BROMIDE 10MG/1ML 5ML VL IV PRN
[2021-09-03 00:53] LABS: HEMATOCRIT 24.4 % (42-54)
[2021-09-03] MEDS: PROPOFOL 1000 MG/100 ML 100 ML IV PRN ×6 (01:13→20:49)
[2021-09-03] MEDS: FENTANYL 2500MCG+NS 250ML 250 ML IV SCH ×5 (01:36→20:51)
[2021-09-03] MEDS: IPRATROPIUM/ALBUTEROL SULFATE 3 ML SOLUTION IH SCH ×6 (03:07→22:17)
[2021-09-03 05:12] LABS: ABG BASE EXCESS -3.4 mmol/L (-2.0-3.0); ABG HCO3 24.7 mmol/L (21.0-28.0); ABG OXYGEN SATURATION 89.4 % (95.0-99.0); ABG PCO2 57 mmHg (35-48)
[2021-09-03] MEDS: MIDAZOLAM 100MG-0.9% NS 100ML 50 ML IV PRN ×2 (05:20→15:16)
[2021-09-03] MEDS: INSULIN HUMULIN R 100 UNIT/ML 3ML SQ SCH ×4 (06:00→18:00)
[2021-09-03 06:23] LABS: HEMATOCRIT 23.3 % (42-54); MEAN CORPUSCULAR HEMOGLOBIN 32.4 pg (27.0-33.0); MEAN CORPUSCULAR HGB CONC 34.8 g/dL (32.0-36.0); MEAN CORPUSCULAR VOLUME 93.2 fL (79-99); NUCLEATED RED BLOOD CELLS 3.1 % (0.0-0.19); RED BLOOD CELL COUNT(AUTO) 2.5 MIL/uL (4.50-6.20); RED CELL DISTRIBUTION WIDTH 16.5 % (11.0-15.5); WHITE BLOOD COUNT (AUTO) 22.4 K/uL (4.8-10.8)
[2021-09-03 06:39] LABS: ALBUMIN 1.8 g/dL (3.5-5.0); BILIRUBIN,TOTAL 0.4 mg/dL (0.2-1.0); CREATININE 3.3 mg/dL (0.5-1.5); TOTAL PROTEIN, SERUM 4.2 g/dL (6.0-8.3)
[2021-09-03] MEDS: INSULIN GLARGINE 100 UNITS/ML 10 ML VIAL SQ SCH ×2 (06:39→21:00)
[2021-09-03] MEDS: METOCLOPRAMIDE 10 MG/2 ML VIAL IVP SCH ×3 (06:45→17:00)
[2021-09-03] MEDS: PANTOPRAZOLE 40 MG/VIAL IVP SCH ×2 (08:14→20:44)
[2021-09-03] MEDS: SULFAMETHOX-TMP DS 800/160 TAB PO SCH ×2 (09:00→20:44)
[2021-09-03] MEDS: DEXAMETHASONE 4 MG TAB PO SCH ×2 (09:00→20:44)
[2021-09-03] MEDS: MIDODRINE HCL 5 MG TABLET PO SCH ×3 (09:00→20:44)
[2021-09-03] MEDS: ARTIFICIAL TEARS 3.5 GM OINTMENT OU SCH ×2 (09:00→20:45)
[2021-09-03] MEDS: BALSAM PERU/CASTOR OIL 60 GM TUBE TP SCH ×2 (11:14→20:45)
[2021-09-03] MEDS: PHENYLEPHRINE HCL 100 MG in 0.9% NACL 250ML 250 ML IV SCH (15:27)
[2021-09-03 16:20] LABS: HEMATOCRIT 30.7 % (42-54)
[2021-09-04] VITALS (32 sets, daily range): BP systolic 90–175; BP diastolic 38–101
[2021-09-04] MEDS: PROPOFOL 1000 MG/100 ML 100 ML IV PRN ×7 (00:02→22:01)
[2021-09-04] MEDS: ROCURONIUM BROMIDE 10MG/1ML 5ML VL IV PRN ×4 (00:34→15:54)
[2021-09-04] MEDS ORDERED: SODIUM CL 4MEQ/ML 30ML 154 MEQ in DEXTROSE 10%-WATER 961.5 ML IV SCH (01:00)
[2021-09-04] MEDS ORDERED: DEXTROSE 10%-WATER 1,000 ML IV ONE (01:06)
[2021-09-04] MEDS: MIDAZOLAM 100MG-0.9% NS 100ML 50 ML IV PRN ×3 (01:35→18:02)
[2021-09-04] MEDS: IPRATROPIUM/ALBUTEROL SULFATE 3 ML SOLUTION IH SCH ×7 (01:46→21:30)
[2021-09-04] MEDS: DEXTROSE 10%-WATER 1,000 ML IV SCH (03:00)
[2021-09-04 03:47] LABS: ABG BASE EXCESS -3.4 mmol/L (-2.0-3.0); ABG OXYGEN SATURATION 92.7 % (95.0-99.0); ABG PCO2 41 mmHg (35-48)
[2021-09-04 05:43] LABS: HEMATOCRIT 28.4 % (42-54); MEAN CORPUSCULAR HEMOGLOBIN 30.2 pg (27.0-33.0); MEAN CORPUSCULAR VOLUME 94.4 fL (79-99); NUCLEATED RED BLOOD CELLS 2.3 % (0.0-0.19); RED BLOOD CELL COUNT(AUTO) 3.01 MIL/uL (4.50-6.20); RED CELL DISTRIBUTION WIDTH 17.1 % (11.0-15.5); WHITE BLOOD COUNT (AUTO) 24.7 K/uL (4.8-10.8)
[2021-09-04] MEDS: INSULIN HUMULIN R 100 UNIT/ML 3ML SQ SCH ×4 (05:48→18:00)
[2021-09-04 05:55] LABS: CREATININE 2.5 mg/dL (0.5-1.5); POTASSIUM 4.1 mmol/L (3.5-5.1)
[2021-09-04 06:03] LABS: INR 0.94 (0.85-1.15); PROTHROMBIN TIME 10.3 SEC (9.6-11.6)
[2021-09-04 06:04] LABS: PARTIAL THROMBOPLASTIN TIME 23.4 SEC (26.3-35.5)
[2021-09-04] MEDS: METOCLOPRAMIDE 10 MG/2 ML VIAL IVP SCH ×3 (07:30→15:37)
[2021-09-04] MEDS: INSULIN GLARGINE 100 UNITS/ML 10 ML VIAL SQ SCH ×2 (07:30→20:29)
[2021-09-04] MEDS: FENTANYL 2500MCG+NS 250ML 250 ML IV SCH ×2 (07:32→18:01)
[2021-09-04] MEDS: MIDODRINE HCL 5 MG TABLET PO SCH ×3 (09:00→20:26)
[2021-09-04] MEDS: DEXAMETHASONE 4 MG TAB PO SCH (09:00)
[2021-09-04] MEDS: PHENYLEPHRINE HCL 100 MG in 0.9% NACL 250ML 250 ML IV SCH (10:17)
[2021-09-04] MEDS: HYDROCORTISONE SOD SUCCINATE 100 MG/2 ML VIAL IV SCH ×3 (10:31→18:05)
[2021-09-04] MEDS: BALSAM PERU/CASTOR OIL 60 GM TUBE TP SCH ×2 (12:26→20:27)
[2021-09-04] MEDS ORDERED: EPINEPHRINE PF 1MG AMP ONE ×2 (13:07→13:08)
[2021-09-04] MEDS ORDERED: LIDOCAINE HCL 1% MDV 50ML VIAL ONE (13:08)
[2021-09-04] MEDS: PANTOPRAZOLE 40 MG/VIAL IVP SCH ×2 (15:32→20:26)
[2021-09-04] MEDS: SULFAMETHOX-TMP DS 800/160 TAB PO SCH ×2 (15:33→20:26)
[2021-09-04 15:46] LABS: ABG BASE EXCESS -6.1 mmol/L (-2.0-3.0); ABG HCO3 21.8 mmol/L (21.0-28.0); ABG PCO2 55 mmHg (35-48)
[2021-09-04] MEDS: DEXMEDETOMIDINE 400MCG/NS100ML IV SCH (15:53)
[2021-09-04] MEDS: CISATRACURIUM BESYLATE 100 MG in 0.9%NACL 100ML 100 ML IV SCH (16:02)
[2021-09-04] MEDS: ARTIFICIAL TEARS 3.5 GM OINTMENT OU SCH ×2 (16:47→20:27)
[2021-09-04] MEDS: EPOETIN ALFA-EPBX (ESRD) 10,000 UNIT/ML VIAL SQ SCH (20:26)
[2021-09-05] VITALS (100 sets, daily range): BP systolic 79–157; BP diastolic 40–97
[2021-09-05] MEDS: HYDROCORTISONE SOD SUCCINATE 100 MG/2 ML VIAL IV SCH ×5 (00:02→17:38)
[2021-09-05] MEDS: DEXMEDETOMIDINE 400MCG/NS100ML IV SCH ×3 (00:12→21:17)
[2021-09-05] MEDS: PROPOFOL 1000 MG/100 ML 100 ML IV PRN ×3 (01:17→09:16)
[2021-09-05] MEDS: IPRATROPIUM/ALBUTEROL SULFATE 3 ML SOLUTION IH SCH ×6 (01:49→22:10)
[2021-09-05] MEDS: FENTANYL 2500MCG+NS 250ML 250 ML IV SCH ×3 (02:16→21:15)
[2021-09-05] MEDS: DEXTROSE 10%-WATER 1,000 ML IV SCH (03:00)
[2021-09-05 03:44] LABS: ABG BASE EXCESS -5.6 mmol/L (-2.0-3.0); ABG HCO3 22.9 mmol/L (21.0-28.0); ABG OXYGEN SATURATION 95.8 % (95.0-99.0); ABG PCO2 57 mmHg (35-48)
[2021-09-05] MEDS: INSULIN HUMULIN R 100 UNIT/ML 3ML SQ SCH ×4 (05:48→17:39)
[2021-09-05] MEDS: CISATRACURIUM BESYLATE 100 MG in 0.9%NACL 100ML 100 ML IV SCH ×2 (05:52→21:13)
[2021-09-05] MEDS: MIDAZOLAM 100MG-0.9% NS 100ML 50 ML IV PRN ×2 (06:04→15:23)
[2021-09-05 06:39] LABS: BASOPHILS % (AUTO) 0.2 % (0.0-5.0); EOSINOPHILS % (AUTO) 0.3 % (0.0-8.0); HEMATOCRIT 25.7 % (42-54); LYMPHOCYTES % (AUTO) 0.9 % (21.0-51.0); MEAN CORPUSCULAR HEMOGLOBIN 31.2 pg (27.0-33.0); MEAN CORPUSCULAR HGB CONC 33.5 g/dL (32.0-36.0); MEAN CORPUSCULAR VOLUME 93.1 fL (79-99); MONOCYTES % (AUTO) 4.3 % (3.0-13.0); NEUTROPHILS % (AUTO) 91.9 % (40.0-77.0); NUCLEATED RED BLOOD CELLS 2.8 % (0.0-0.19); PLATELET COUNT (AUTO) 136 K/uL (130-400); RED BLOOD CELL COUNT(AUTO) 2.76 MIL/uL (4.50-6.20); RED CELL DISTRIBUTION WIDTH 16.7 % (11.0-15.5); WHITE BLOOD COUNT (AUTO) 16.9 K/uL (4.8-10.8)
[2021-09-05 07:03] LABS: ALBUMIN 1.9 g/dL (3.5-5.0); BILIRUBIN,TOTAL 0.3 mg/dL (0.2-1.0); CREATININE 2.9 mg/dL (0.5-1.5); MAGNESIUM 2.3 mg/dL (1.80-2.40); PHOSPHORUS 6.5 mg/dL (2.5-4.9)
[2021-09-05] MEDS: INSULIN GLARGINE 100 UNITS/ML 10 ML VIAL SQ SCH ×2 (07:30→21:19)
[2021-09-05] MEDS: METOCLOPRAMIDE 10 MG/2 ML VIAL IVP SCH ×3 (08:16→17:38)
[2021-09-05] MEDS: PANTOPRAZOLE 40 MG/VIAL IVP SCH ×2 (08:16→21:11)
[2021-09-05] MEDS: ARTIFICIAL TEARS 3.5 GM OINTMENT OU SCH ×2 (08:17→21:00)
[2021-09-05] MEDS: BALSAM PERU/CASTOR OIL 60 GM TUBE TP SCH ×2 (08:18→21:00)
[2021-09-05] MEDS: MIDODRINE HCL 5 MG TABLET PO SCH ×3 (08:19→21:11)
[2021-09-05] MEDS: SULFAMETHOX-TMP DS 800/160 TAB PO SCH ×2 (09:55→21:11)
[2021-09-05] MEDS: HEPARIN 5,000 UNIT VIAL IJ SCH ×2 (13:03→15:00)
[2021-09-06] VITALS (72 sets, daily range): BP systolic 92–171; BP diastolic 35–97
[2021-09-06] MEDS: IPRATROPIUM/ALBUTEROL SULFATE 3 ML SOLUTION IH SCH ×6 (02:28→21:06)
[2021-09-06] MEDS: DEXMEDETOMIDINE 400MCG/NS100ML IV SCH ×5 (02:45→20:00)
[2021-09-06] MEDS: DEXTROSE 10%-WATER 1,000 ML IV SCH (03:00)
[2021-09-06] MEDS: MIDAZOLAM 100MG-0.9% NS 100ML 50 ML IV PRN ×4 (03:16→19:26)
[2021-09-06] MEDS: HYDROCORTISONE SOD SUCCINATE 100 MG/2 ML VIAL IV SCH ×5 (06:00→17:46)
[2021-09-06] MEDS: INSULIN HUMULIN R 100 UNIT/ML 3ML SQ SCH ×4 (06:00→18:00)
[2021-09-06] MEDS ORDERED: DEXTROSE 50%-WATER 50 ML DISP.SYRIN IV ONE (06:13)
[2021-09-06 06:28] LABS: BASOPHILS % (AUTO) 0.2 % (0.0-5.0); EOSINOPHILS % (AUTO) 1.6 % (0.0-8.0); HEMATOCRIT 26.9 % (42-54); LYMPHOCYTES % (AUTO) 3.2 % (21.0-51.0); MEAN CORPUSCULAR HEMOGLOBIN 29.5 pg (27.0-33.0); MEAN CORPUSCULAR HGB CONC 31.2 g/dL (32.0-36.0); MEAN CORPUSCULAR VOLUME 94.4 fL (79-99); MONOCYTES % (AUTO) 7.7 % (3.0-13.0); NEUTROPHILS % (AUTO) 83.2 % (40.0-77.0); NUCLEATED RED BLOOD CELLS 8.3 % (0.0-0.19); PLATELET COUNT (AUTO) 124 K/uL (130-400); RED BLOOD CELL COUNT(AUTO) 2.85 MIL/uL (4.50-6.20); RED CELL DISTRIBUTION WIDTH 17.1 % (11.0-15.5); WHITE BLOOD COUNT (AUTO) 11.4 K/uL (4.8-10.8)
[2021-09-06 06:32] LABS: ALBUMIN 1.9 g/dL (3.5-5.0); BILIRUBIN,TOTAL 0.3 mg/dL (0.2-1.0); CREATININE 2.1 mg/dL (0.5-1.5); POTASSIUM 3.1 mmol/L (3.5-5.1); TOTAL PROTEIN, SERUM 4.9 g/dL (6.0-8.3)
[2021-09-06] MEDS: INSULIN GLARGINE 100 UNITS/ML 10 ML VIAL SQ SCH ×2 (07:15→21:00)
[2021-09-06] MEDS: FENTANYL 2500MCG+NS 250ML 250 ML IV SCH (07:22)
[2021-09-06] MEDS: CISATRACURIUM BESYLATE 100 MG in 0.9%NACL 100ML 100 ML IV SCH ×2 (07:47→18:38)
[2021-09-06 08:22] LABS: BAND NEUTROPHILS % (MANUAL) 6 % (0-2); EOSINOPHILS % (MANUAL) 1 % (1-6); LYMPHOCYTES % (MANUAL) 6 % (22-44); MAN.DIFF COMMENT-IMPRESSION MANUAL DIFFERENTIAL; MONOCYTES % (MANUAL) 11 % (2-9); SEGMENTED NEUTROPHILS % 76 % (40-70)
[2021-09-06] MEDS: SULFAMETHOX-TMP DS 800/160 TAB PO SCH ×2 (08:45→22:23)
[2021-09-06] MEDS: METOCLOPRAMIDE 10 MG/2 ML VIAL IVP SCH ×3 (08:45→17:46)
[2021-09-06] MEDS: MIDODRINE HCL 5 MG TABLET PO SCH ×3 (08:45→22:23)
[2021-09-06] MEDS: PANTOPRAZOLE 40 MG/VIAL IVP SCH (08:45)
[2021-09-06] MEDS: ARTIFICIAL TEARS 3.5 GM OINTMENT OU SCH ×2 (08:45→21:00)
[2021-09-06] MEDS: BALSAM PERU/CASTOR OIL 60 GM TUBE TP SCH ×2 (08:46→21:00)
[2021-09-06 09:55] LABS: ABG BASE EXCESS -4.1 mmol/L (-2.0-3.0); ABG OXYGEN SATURATION 95.6 % (95.0-99.0); ABG PCO2 61 mmHg (35-48)
[2021-09-06] MEDS: HEPARIN 5,000 UNIT VIAL SQ SCH ×2 (10:55→22:28)
[2021-09-06] MEDS: HEPARIN 5,000 UNIT VIAL IJ SCH (13:49)
[2021-09-06] MEDS: FENTANYL 2500MCG+NS 250ML 250 ML IV PRN (15:38)
[2021-09-07] VITALS (78 sets, daily range): BP systolic 84–172; BP diastolic 38–100
[2021-09-07] MEDS: DEXMEDETOMIDINE 400MCG/NS100ML IV SCH ×5 (00:30→18:11)
[2021-09-07] MEDS: FENTANYL 2500MCG+NS 250ML 250 ML IV PRN ×3 (00:40→19:49)
[2021-09-07] MEDS: IPRATROPIUM/ALBUTEROL SULFATE 3 ML SOLUTION IH SCH ×6 (01:50→22:15)
[2021-09-07] MEDS: DEXTROSE 10%-WATER 1,000 ML IV SCH (03:00)
[2021-09-07] MEDS: CISATRACURIUM BESYLATE 100 MG in 0.9%NACL 100ML 100 ML IV SCH ×2 (03:12→13:13)
[2021-09-07] MEDS: INSULIN HUMULIN R 100 UNIT/ML 3ML SQ SCH ×4 (06:00→17:58)
[2021-09-07 06:52] LABS: BASOPHILS % (AUTO) 0.2 % (0.0-5.0); EOSINOPHILS % (AUTO) 0.4 % (0.0-8.0); LYMPHOCYTES % (AUTO) 2.2 % (21.0-51.0); MEAN CORPUSCULAR HEMOGLOBIN 29.9 pg (27.0-33.0); MEAN CORPUSCULAR HGB CONC 31.5 g/dL (32.0-36.0); MEAN CORPUSCULAR VOLUME 94.9 fL (79-99); MONOCYTES % (AUTO) 5.5 % (3.0-13.0); NUCLEATED RED BLOOD CELLS 7.6 % (0.0-0.19); PLATELET COUNT (AUTO) 119 K/uL (130-400); RED BLOOD CELL COUNT(AUTO) 2.74 MIL/uL (4.50-6.20); RED CELL DISTRIBUTION WIDTH 17.7 % (11.0-15.5); WHITE BLOOD COUNT (AUTO) 9.7 K/uL (4.8-10.8)
[2021-09-07] MEDS: METOCLOPRAMIDE 10 MG/2 ML VIAL IVP SCH ×3 (06:54→17:02)
[2021-09-07] MEDS: INSULIN GLARGINE 100 UNITS/ML 10 ML VIAL SQ SCH ×2 (06:55→20:15)
[2021-09-07] MEDS: HYDROCORTISONE SOD SUCCINATE 100 MG/2 ML VIAL IV SCH ×4 (06:56→12:00)
[2021-09-07 07:28] LABS: ALBUMIN 1.7 g/dL (3.5-5.0); BILIRUBIN,TOTAL 0.2 mg/dL (0.2-1.0); CREATININE 2.5 mg/dL (0.5-1.5); POTASSIUM 3.5 mmol/L (3.5-5.1); TOTAL PROTEIN, SERUM 4.6 g/dL (6.0-8.3)
[2021-09-07] MEDS: MIDAZOLAM 100MG-0.9% NS 100ML 50 ML IV PRN ×2 (08:45→19:49)
[2021-09-07] MEDS: PANTOPRAZOLE 40 MG/VIAL IVP SCH (08:45)
[2021-09-07] MEDS: MIDODRINE HCL 5 MG TABLET PO SCH ×3 (08:45→20:12)
[2021-09-07] MEDS: SULFAMETHOX-TMP DS 800/160 TAB PO SCH ×2 (08:45→20:12)
[2021-09-07] MEDS: ARTIFICIAL TEARS 3.5 GM OINTMENT OU SCH ×2 (08:46→20:13)
[2021-09-07] MEDS: BALSAM PERU/CASTOR OIL 60 GM TUBE TP SCH ×2 (08:56→20:14)
[2021-09-07] MEDS: HEPARIN 5,000 UNIT VIAL SQ SCH (11:00)
[2021-09-07] MEDS: LACTULOSE 20 GM/30 ML UDCUP PO PRN (12:45)
[2021-09-07] MEDS ORDERED: DEXTROSE 50%-WATER 50 ML DISP.SYRIN IV ONE (12:56)
[2021-09-07] MEDS: DEXAMETHASONE SOD PHOSPHATE 4 MG/ML 1ML VIAL IV SCH (12:57)
[2021-09-07] MEDS: HEPARIN 5,000 UNIT VIAL IJ SCH (15:00)
[2021-09-07] MEDS: LACTULOSE 20 GM/30 ML UDCUP PO SCH (20:11)
[2021-09-07] MEDS: EPOETIN ALFA-EPBX (ESRD) 10,000 UNIT/ML VIAL SQ SCH (20:12)
[2021-09-08] VITALS (85 sets, daily range): BP systolic 81–160; BP diastolic 36–94
[2021-09-08] MEDS: HEPARIN 5,000 UNIT VIAL SQ SCH ×3 (00:15→22:45)
[2021-09-08] MEDS: DEXMEDETOMIDINE 400MCG/NS100ML IV SCH ×5 (00:17→19:53)
[2021-09-08] MEDS: MIDAZOLAM 100MG-0.9% NS 100ML 50 ML IV PRN ×2 (00:17→09:43)
[2021-09-08] MEDS: IPRATROPIUM/ALBUTEROL SULFATE 3 ML SOLUTION IH SCH ×6 (01:22→22:23)
[2021-09-08 03:16] LABS: ABG BASE EXCESS -5.7 mmol/L (-2.0-3.0); ABG HCO3 23.4 mmol/L (21.0-28.0); ABG OXYGEN SATURATION 76.7 % (95.0-99.0); ABG PCO2 62 mmHg (35-48)
[2021-09-08] MEDS: ROCURONIUM BROMIDE 10MG/1ML 5ML VL IV PRN ×3 (03:57→10:47)
[2021-09-08] MEDS: FENTANYL 2500MCG+NS 250ML 250 ML IV PRN ×3 (03:58→19:55)
[2021-09-08 05:21] LABS: HEMATOCRIT 25.9 % (42-54); MEAN CORPUSCULAR HEMOGLOBIN 29.7 pg (27.0-33.0); MEAN CORPUSCULAR HGB CONC 31.7 g/dL (32.0-36.0); MEAN CORPUSCULAR VOLUME 93.8 fL (79-99); NUCLEATED RED BLOOD CELLS 6.7 % (0.0-0.19); PLATELET COUNT (AUTO) 115 K/uL (130-400); RED BLOOD CELL COUNT(AUTO) 2.76 MIL/uL (4.50-6.20); RED CELL DISTRIBUTION WIDTH 17.6 % (11.0-15.5); WHITE BLOOD COUNT (AUTO) 10.3 K/uL (4.8-10.8)
[2021-09-08 05:44] LABS: ALBUMIN 1.7 g/dL (3.5-5.0); BILIRUBIN,TOTAL 0.3 mg/dL (0.2-1.0); CREATININE 2.9 mg/dL (0.5-1.5); POTASSIUM 3.6 mmol/L (3.5-5.1); TOTAL PROTEIN, SERUM 4.7 g/dL (6.0-8.3)
[2021-09-08] MEDS: INSULIN HUMULIN R 100 UNIT/ML 3ML SQ SCH ×4 (06:00→18:00)
[2021-09-08 06:05] LABS: BAND NEUTROPHILS % (MANUAL) 7 % (0-2); MAN.DIFF COMMENT-IMPRESSION MANUAL DIFFERENTIAL; MONOCYTES % (MANUAL) 4 % (2-9); PLATELET MORPHOLOGY COMMENT SLIGHTLY DECREASED; SEGMENTED NEUTROPHILS % 89 % (40-70)
[2021-09-08] MEDS: DEXTROSE 10%-WATER 1,000 ML IV SCH (07:01)
[2021-09-08] MEDS: INSULIN GLARGINE 100 UNITS/ML 10 ML VIAL SQ SCH ×2 (07:30→22:46)
[2021-09-08] MEDS: METOCLOPRAMIDE 10 MG/2 ML VIAL IVP SCH ×3 (08:12→17:30)
[2021-09-08] MEDS: MIDODRINE HCL 5 MG TABLET PO SCH ×3 (08:13→19:58)
[2021-09-08] MEDS: ERGOCALCIFEROL (VITAMIN D2) 50,000 UNIT CAPSULE PO SCH (08:13)
[2021-09-08] MEDS: PANTOPRAZOLE 40 MG/VIAL IVP SCH (08:13)
[2021-09-08] MEDS: LACTULOSE 20 GM/30 ML UDCUP PO SCH ×2 (08:13→21:00)
[2021-09-08] MEDS: SULFAMETHOX-TMP DS 800/160 TAB PO SCH ×2 (08:13→19:58)
[2021-09-08] MEDS: ARTIFICIAL TEARS 3.5 GM OINTMENT OU SCH ×2 (08:14→20:00)
[2021-09-08] MEDS: BALSAM PERU/CASTOR OIL 60 GM TUBE TP SCH ×2 (08:15→19:59)
[2021-09-08 08:16] LABS: ABG HCO3 21.5 mmol/L (21.0-28.0); ABG OXYGEN SATURATION 83.3 % (95.0-99.0); ABG PCO2 61 mmHg (35-48)
[2021-09-08] MEDS: DEXAMETHASONE SOD PHOSPHATE 4 MG/ML 1ML VIAL IV SCH (12:13)
[2021-09-08] MEDS: HEPARIN 5,000 UNIT VIAL IJ SCH (15:00)
[2021-09-08] MEDS: CISATRACURIUM BESYLATE 100 MG in 0.9%NACL 100ML 100 ML IV SCH (19:54)
[2021-09-08] MEDS: MIDAZOLAM 100MG-0.9% NS 100ML 100 ML IV PRN (20:34)
[2021-09-09] VITALS (89 sets, daily range): BP systolic 53–157; BP diastolic 26–97
[2021-09-09] MEDS: DEXMEDETOMIDINE 400MCG/NS100ML IV SCH ×4 (01:50→23:13)
[2021-09-09] MEDS: CISATRACURIUM BESYLATE 100 MG in 0.9%NACL 100ML 100 ML IV SCH ×4 (01:50→21:15)
[2021-09-09] MEDS: IPRATROPIUM/ALBUTEROL SULFATE 3 ML SOLUTION IH SCH ×6 (02:57→21:42)
[2021-09-09] MEDS: DEXTROSE 10%-WATER 1,000 ML IV SCH (03:00)
[2021-09-09 03:04] LABS: ABG BASE EXCESS -3.1 mmol/L (-2.0-3.0); ABG HCO3 26.4 mmol/L (21.0-28.0); ABG OXYGEN SATURATION 77.3 % (95.0-99.0); ABG PCO2 67 mmHg (35-48)
[2021-09-09] MEDS: MIDAZOLAM 100MG-0.9% NS 100ML 100 ML IV PRN ×2 (04:21→16:36)
[2021-09-09] MEDS: FENTANYL 2500MCG+NS 250ML 250 ML IV PRN ×3 (04:22→23:15)
[2021-09-09] MEDS: ROCURONIUM BROMIDE 10MG/1ML 5ML VL IV PRN ×2 (04:23→23:16)
[2021-09-09 05:28] LABS: HEMATOCRIT 28.7 % (42-54); MEAN CORPUSCULAR HEMOGLOBIN 30.5 pg (27.0-33.0); MEAN CORPUSCULAR HGB CONC 31.7 g/dL (32.0-36.0); MEAN CORPUSCULAR VOLUME 96.3 fL (79-99); NUCLEATED RED BLOOD CELLS 6.3 % (0.0-0.19); PLATELET COUNT (AUTO) 105 K/uL (130-400); RED BLOOD CELL COUNT(AUTO) 2.98 MIL/uL (4.50-6.20); RED CELL DISTRIBUTION WIDTH 18.5 % (11.0-15.5); WHITE BLOOD COUNT (AUTO) 20.2 K/uL (4.8-10.8)
[2021-09-09 05:44] LABS: CREATININE 2.3 mg/dL (0.5-1.5); POTASSIUM 3.3 mmol/L (3.5-5.1)
[2021-09-09 05:49] LABS: ALBUMIN 1.8 g/dL (3.5-5.0); BILIRUBIN,TOTAL 0.3 mg/dL (0.2-1.0); TOTAL PROTEIN, SERUM 5.1 g/dL (6.0-8.3)
[2021-09-09] MEDS: INSULIN HUMULIN R 100 UNIT/ML 3ML SQ SCH ×5 (06:00→23:18)
[2021-09-09 06:13] LABS: BAND NEUTROPHILS % (MANUAL) 1 % (0-2); LYMPHOCYTES % (MANUAL) 1 % (22-44); MONOCYTES % (MANUAL) 2 % (2-9); SEGMENTED NEUTROPHILS % 96 % (40-70)
[2021-09-09 06:14] LABS: MAN.DIFF COMMENT-IMPRESSION MANUAL DIFFERENTIAL
[2021-09-09] MEDS: PHENYLEPHRINE HCL 100 MG in 0.9% NACL 250ML 250 ML IV SCH ×2 (06:45→13:41)
[2021-09-09] MEDS: INSULIN GLARGINE 100 UNITS/ML 10 ML VIAL SQ SCH (07:30)
[2021-09-09] MEDS: MIDODRINE HCL 5 MG TABLET PO SCH ×3 (09:00→19:43)
[2021-09-09] MEDS: LACTULOSE 20 GM/30 ML UDCUP PO SCH ×2 (09:00→19:04)
[2021-09-09] MEDS: METOCLOPRAMIDE 10 MG/2 ML VIAL IVP SCH ×3 (09:02→16:35)
[2021-09-09] MEDS: PANTOPRAZOLE 40 MG/VIAL IVP SCH (09:03)
[2021-09-09] MEDS: BALSAM PERU/CASTOR OIL 60 GM TUBE TP SCH ×2 (09:05→19:45)
[2021-09-09] MEDS: ARTIFICIAL TEARS 3.5 GM OINTMENT OU SCH ×2 (09:05→19:46)
[2021-09-09] MEDS: SULFAMETHOX-TMP DS 800/160 TAB PO SCH ×2 (09:28→19:43)
[2021-09-09 10:12] LABS: ABG BASE EXCESS -5.9 mmol/L (-2.0-3.0); ABG HCO3 23.3 mmol/L (21.0-28.0); ABG OXYGEN SATURATION 77.7 % (95.0-99.0); ABG PCO2 62 mmHg (35-48)
[2021-09-09] MEDS: HEPARIN 5,000 UNIT VIAL SQ SCH ×2 (11:08→23:11)
[2021-09-09 11:52] LABS: ABG BASE EXCESS -7.3 mmol/L (-2.0-3.0); ABG HCO3 22.7 mmol/L (21.0-28.0); ABG OXYGEN SATURATION 84.7 % (95.0-99.0); ABG PCO2 66 mmHg (35-48)
[2021-09-09] MEDS ORDERED: PHARMACY COMMUNICATION MISC SCH ×2 (12:30→13:00)
[2021-09-09] MEDS ORDERED: VASOPRESSIN 40 UNITS in 0.9%NACL 50ML 40 ML IV SCH (12:30)
[2021-09-09] MEDS ORDERED: VANCOMYCIN 1G VIAL IVPB ONE (12:30)
[2021-09-09] MEDS: DEXAMETHASONE SOD PHOSPHATE 4 MG/ML 1ML VIAL IV SCH (12:40)
[2021-09-09] MEDS: VASOPRESSIN 40 UNITS in 0.9%NACL 50ML 40 ML IV SCH (12:55)
[2021-09-09] MEDS ORDERED: CEFEPIME HCL 2 GM VIAL IVP SCH (13:00)
[2021-09-09] MEDS: CEFEPIME HCL 2 GM VIAL IVP SCH ×2 (13:00→19:43)
[2021-09-09] MEDS ORDERED: MICAFUNGIN SODIUM IV SCH (15:00)
[2021-09-09] MEDS ORDERED: VANCOMYCIN 1.75GM/250ML NS IV SCH ×2 (15:00)
[2021-09-09] MEDS ORDERED: [UNRECOGNIZED DRUG - OTHER] IV SCH (15:00)
[2021-09-09] MEDS ORDERED: VANCOMYCIN PROTOCOL PER PHARMACY IV SCH (15:00)
[2021-09-09] MEDS: EPOETIN ALFA-EPBX (ESRD) 10,000 UNIT/ML VIAL SQ SCH (19:43)
[2021-09-09] MEDS: HEPARIN 5,000 UNIT VIAL IJ SCH (20:00)
[2021-09-10] VITALS (47 sets, daily range): BP systolic 42–162; BP diastolic 20–98
[2021-09-10] MEDS: CISATRACURIUM BESYLATE 100 MG in 0.9%NACL 100ML 100 ML IV SCH (02:53)
[2021-09-10] MEDS: IPRATROPIUM/ALBUTEROL SULFATE 3 ML SOLUTION IH SCH ×2 (03:19→06:49)
[2021-09-10 03:43] LABS: ABG BASE EXCESS -5.8 mmol/L (-2.0-3.0); ABG HCO3 20.4 mmol/L (21.0-28.0); ABG OXYGEN SATURATION 94.5 % (95.0-99.0); ABG PCO2 44 mmHg (35-48)
[2021-09-10] MEDS: MIDAZOLAM 100MG-0.9% NS 100ML 100 ML IV PRN (03:55)
[2021-09-10] MEDS: CEFEPIME HCL 2 GM VIAL IVP SCH (04:17)
[2021-09-10 04:38] LABS: BASOPHILS % (AUTO) 0.1 % (0.0-5.0); EOSINOPHILS % (AUTO) 0.2 % (0.0-8.0); HEMATOCRIT 24.9 % (42-54); LYMPHOCYTES % (AUTO) 1.6 % (21.0-51.0); MEAN CORPUSCULAR HEMOGLOBIN 29.9 pg (27.0-33.0); MEAN CORPUSCULAR HGB CONC 31.3 g/dL (32.0-36.0); MEAN CORPUSCULAR VOLUME 95.4 fL (79-99); MONOCYTES % (AUTO) 6.5 % (3.0-13.0); NEUTROPHILS % (AUTO) 90.2 % (40.0-77.0); NUCLEATED RED BLOOD CELLS 3.1 % (0.0-0.19); PLATELET COUNT (AUTO) 102 K/uL (130-400); RED BLOOD CELL COUNT(AUTO) 2.61 MIL/uL (4.50-6.20); RED CELL DISTRIBUTION WIDTH 18.2 % (11.0-15.5); WHITE BLOOD COUNT (AUTO) 18.1 K/uL (4.8-10.8)
[2021-09-10 05:08] LABS: ALBUMIN 1.7 g/dL (3.5-5.0); BILIRUBIN,TOTAL 0.3 mg/dL (0.2-1.0); CREATININE 2.9 mg/dL (0.5-1.5); MAGNESIUM 2.2 mg/dL (1.80-2.40); PHOSPHORUS 5.7 mg/dL (2.5-4.9); POTASSIUM 3.8 mmol/L (3.5-5.1); TOTAL PROTEIN, SERUM 5.2 g/dL (6.0-8.3)
[2021-09-10 05:11] LABS: % IRON SATURATION 12.5 % (30-44)
[2021-09-10] MEDS: INSULIN HUMULIN R 100 UNIT/ML 3ML SQ SCH (05:15)
[2021-09-10] MEDS: DEXMEDETOMIDINE 400MCG/NS100ML IV SCH (05:21)
[2021-09-10] MEDS: METOCLOPRAMIDE 10 MG/2 ML VIAL IVP SCH (06:45)
[2021-09-10 09:33] LABS: ABG BASE EXCESS -6.3 mmol/L (-2.0-3.0); ABG HCO3 24.1 mmol/L (21.0-28.0); ABG OXYGEN SATURATION 44.2 % (95.0-99.0); ABG PCO2 83 mmHg (35-48)
== END 2021-09-10 09:42 | DRG 4 ==
LOC: EDH 17:30 → EDHIP 17:31 → 4BH 07-28 10:13 → 2AH 07-28 15:24 → 2BH 08-09 13:33
PROVIDERS: ADMIT Internal Medicine; ATTEND Internal Medicine
PROC: 5A1D70Z Performance of Urinary Filtration, Intermittent, Less than 6 Hours Per Day (ICD-10-PCS; 2021-07-27)
PROC: 5A09357 Assistance with Respiratory Ventilation, Less than 24 Consecutive Hours, Continuous Positive Airway Pressure (ICD-10-PCS; 2021-07-27)
PROC: 5A1D70Z Performance of Urinary Filtration, Intermittent, Less than 6 Hours Per Day (ICD-10-PCS; 2021-07-28)
PROC: 05HN33Z Insertion of Infusion Device into Left Internal Jugular Vein, Percutaneous Approach (ICD-10-PCS; 2021-07-28)
PROC: B544ZZA Ultrasonography of Left Jugular Veins, Guidance (ICD-10-PCS; 2021-07-28)
PROC: 5A09457 Assistance with Respiratory Ventilation, 24-96 Consecutive Hours, Continuous Positive Airway Pressure (ICD-10-PCS; 2021-07-28)
PROC: 5A1D70Z Performance of Urinary Filtration, Intermittent, Less than 6 Hours Per Day (ICD-10-PCS; 2021-07-29)
PROC: 5A1D70Z Performance of Urinary Filtration, Intermittent, Less than 6 Hours Per Day (ICD-10-PCS; 2021-07-30)
PROC: 5A09557 Assistance with Respiratory Ventilation, Greater than 96 Consecutive Hours, Continuous Positive Airway Pressure (ICD-10-PCS; 2021-07-30)
PROC: 5A1D70Z Performance of Urinary Filtration, Intermittent, Less than 6 Hours Per Day (ICD-10-PCS; 2021-08-01)
PROC: 5A1D70Z Performance of Urinary Filtration, Intermittent, Less than 6 Hours Per Day (ICD-10-PCS; 2021-08-04)
PROC: 5A1D70Z Performance of Urinary Filtration, Intermittent, Less than 6 Hours Per Day (ICD-10-PCS; 2021-08-06)
PROC: 02H633Z Insertion of Infusion Device into Right Atrium, Percutaneous Approach (ICD-10-PCS; 2021-08-06)
PROC: 5A1D70Z Performance of Urinary Filtration, Intermittent, Less than 6 Hours Per Day (ICD-10-PCS; 2021-08-07)
PROC: 5A1D70Z Performance of Urinary Filtration, Intermittent, Less than 6 Hours Per Day (ICD-10-PCS; 2021-08-08)
PROC: 5A1955Z Respiratory Ventilation, Greater than 96 Consecutive Hours (ICD-10-PCS; 2021-08-09)
PROC: 0BH17EZ Insertion of Endotracheal Airway into Trachea, Via Natural or Artificial Opening (ICD-10-PCS; 2021-08-09)
PROC: 5A1D70Z Performance of Urinary Filtration, Intermittent, Less than 6 Hours Per Day (ICD-10-PCS; 2021-08-10)
PROC: 30233N1 Transfusion of Nonautologous Red Blood Cells into Peripheral Vein, Percutaneous Approach (ICD-10-PCS; 2021-08-11)
PROC: 5A1D70Z Performance of Urinary Filtration, Intermittent, Less than 6 Hours Per Day (ICD-10-PCS; 2021-08-11)
PROC: 5A1D70Z Performance of Urinary Filtration, Intermittent, Less than 6 Hours Per Day (ICD-10-PCS; 2021-08-12)
PROC: 5A1D70Z Performance of Urinary Filtration, Intermittent, Less than 6 Hours Per Day (ICD-10-PCS; 2021-08-13)
PROC: 5A1D70Z Performance of Urinary Filtration, Intermittent, Less than 6 Hours Per Day (ICD-10-PCS; 2021-08-14)
PROC: 5A1D70Z Performance of Urinary Filtration, Intermittent, Less than 6 Hours Per Day (ICD-10-PCS; 2021-08-15)
PROC: 5A1D70Z Performance of Urinary Filtration, Intermittent, Less than 6 Hours Per Day (ICD-10-PCS; 2021-08-18)
PROC: 5A1D70Z Performance of Urinary Filtration, Intermittent, Less than 6 Hours Per Day (ICD-10-PCS; 2021-08-19)
PROC: 5A12012 Performance of Cardiac Output, Single, Manual (ICD-10-PCS; 2021-08-19)
PROC: 5A1D70Z Performance of Urinary Filtration, Intermittent, Less than 6 Hours Per Day (ICD-10-PCS; 2021-08-20)
PROC: 5A1D70Z Performance of Urinary Filtration, Intermittent, Less than 6 Hours Per Day (ICD-10-PCS; 2021-08-22)
PROC: 5A1D70Z Performance of Urinary Filtration, Intermittent, Less than 6 Hours Per Day (ICD-10-PCS; 2021-08-25)
PROC: 05HM33Z Insertion of Infusion Device into Right Internal Jugular Vein, Percutaneous Approach (ICD-10-PCS; 2021-08-25)
PROC: B543ZZA Ultrasonography of Right Jugular Veins, Guidance (ICD-10-PCS; 2021-08-25)
PROC: 5A1D70Z Performance of Urinary Filtration, Intermittent, Less than 6 Hours Per Day (ICD-10-PCS; 2021-08-27)
PROC: 5A1D70Z Performance of Urinary Filtration, Intermittent, Less than 6 Hours Per Day (ICD-10-PCS; 2021-08-29)
PROC: 5A1D70Z Performance of Urinary Filtration, Intermittent, Less than 6 Hours Per Day (ICD-10-PCS; 2021-09-01)
PROC: 0DJ08ZZ Inspection of Upper Intestinal Tract, Via Natural or Artificial Opening Endoscopic (ICD-10-PCS; 2021-09-02)
PROC: 0DH63UZ Insertion of Feeding Device into Stomach, Percutaneous Approach (ICD-10-PCS; 2021-09-03)
PROC: 5A1D70Z Performance of Urinary Filtration, Intermittent, Less than 6 Hours Per Day (ICD-10-PCS; 2021-09-03)
PROC: 0B110F4 Bypass Trachea to Cutaneous with Tracheostomy Device, Open Approach (ICD-10-PCS; principal; 2021-09-04 08:30)
PROC: 5A1D70Z Performance of Urinary Filtration, Intermittent, Less than 6 Hours Per Day (ICD-10-PCS; 2021-09-05)
PROC: 5A1D70Z Performance of Urinary Filtration, Intermittent, Less than 6 Hours Per Day (ICD-10-PCS; 2021-09-08)
PROC: 5A1D70Z Performance of Urinary Filtration, Intermittent, Less than 6 Hours Per Day (ICD-10-PCS; 2021-09-09)
PROC: 5A12012 Performance of Cardiac Output, Single, Manual (ICD-10-PCS; 2021-09-10)
DX: U07.1 COVID-19 (principal); J12.82 Pneumonia due to coronavirus disease 2019; E43 Unspecified severe protein-calorie malnutrition; J80 Acute respiratory distress syndrome; N17.0 Acute kidney failure with tubular necrosis; N18.6 End stage renal disease; R65.21 Severe sepsis with septic shock; J15.6 Pneumonia due to other Gram-negative bacteria; A41.9 Sepsis, unspecified organism; D68.59 Other primary thrombophilia; D68.8 Other specified coagulation defects; I13.11 Hypertensive heart and chronic kidney disease without heart failure, with stage 5 chronic kidney disease, or end stage renal disease; I47.2 Ventricular tachycardia; D62 Acute posthemorrhagic anemia; I47.1 Supraventricular tachycardia; G93.40 Encephalopathy, unspecified; K92.0 Hematemesis; E87.4 Mixed disorder of acid-base balance; J95.851 Ventilator associated pneumonia; I46.9 Cardiac arrest, cause unspecified; E78.5 Hyperlipidemia, unspecified; I16.0 Hypertensive urgency; E11.22 Type 2 diabetes mellitus with diabetic chronic kidney disease; E11.65 Type 2 diabetes mellitus with hyperglycemia; E78.00 Pure hypercholesterolemia, unspecified; F12.90 Cannabis use, unspecified, uncomplicated; D50.9 Iron deficiency anemia, unspecified; E88.09 Other disorders of plasma-protein metabolism, not elsewhere classified; D75.82 Heparin induced thrombocytopenia (HIT); E66.01 Morbid (severe) obesity due to excess calories; F17.210 Nicotine dependence, cigarettes, uncomplicated; Z68.34 Body mass index [BMI] 34.0-34.9, adult; R63.39 Other feeding difficulties; E63.9 Nutritional deficiency, unspecified; L89.152 Pressure ulcer of sacral region, stage 2; B96.89 Other specified bacterial agents as the cause of diseases classified elsewhere; D63.8 Anemia in other chronic diseases classified elsewhere; K80.20 Calculus of gallbladder without cholecystitis without obstruction; R13.12 Dysphagia, oropharyngeal phase; T38.0X5A Adverse effect of glucocorticoids and synthetic analogues, initial encounter; Y84.8 Other medical procedures as the cause of abnormal reaction of the patient, or of later complication, without mention of misadventure at the time of the procedure; Z79.01 Long term (current) use of anticoagulants; Z79.4 Long term (current) use of insulin; Z99.2 Dependence on renal dialysis; Z74.01 Bed confinement status; Y92.89 Other specified places as the place of occurrence of the external cause; Z91.19 Patient's noncompliance with other medical treatment and regimen; Z88.8 Allergy status to other drugs, medicaments and biological substances; Z83.3 Family history of diabetes mellitus; Z82.49 Family history of ischemic heart disease and other diseases of the circulatory system
CPT/HCPCS: 31500; 36415; 36430; 36600; 36800; 43235; 43246; 71045; 74018; 76705; 76770; 80048; 80053; 80061; 80202; 81001; 82010; 82040; 82140; 82150; 82270; 82306; 82435; 82565; 82607; 82728; 82746; 82803; 82947; 82948; 83036; 83540; 83550; 83605; 83615; 83690; 83735; 83880; 84100; 84132; 84145; 84156; 84295; 84478; 84484; 84520; 85014; 85018; 85025; 85027; 85378; 85384; 85610; 85651; 85730; 86022; 86140; 86701; 86704; 86706; 86850; 86900; 86901; 86923; 87040; 87071; 87077; 87088; 87101; 87186; 87205; 87206; 87340; 87390; 87635; 87804; 90935; 92950; 93005; 93970; 94002; 94003; 94640; 94660; 97039; 99291; C1751; C1894; C9113; C9803; G0378; J0171; J0360; J0461; J0690; J0692; J0696; J0883; J1100; J1450; J1644; J1720; J1815; J1956; J2001; J2060; J2185; J2248; J2250; J2370; J2405; J2704; J2765; J2930; J3010; J3370; J3490; J7030; J7050; J7070; J8540; P9016; P9045; P9046; P9047